=== PATIENT | male | born 1945 | race Caucasian/White ===

== ENCOUNTER 2023-04-01 13:54 | Inpatient (IN) ==
--- NOTE | 2023-04-01 14:54 | XRay Report ---
SINGLE VIEW CHEST CLINICAL HISTORY: Atypical chest pain. FINDINGS: A PA chest radiograph is obtained. No prior studies are available for comparison at the elpidio e of dictation. The cardiomediastinal silhouette is unremarkable. The lungs and pleural spaces are cl ear. No pneumothorax is seen. The skeletal structures are osteopenic. The bony thorax is grossly inta ct. IMPRESSION: No active disease in the chest. ACT 112: Negative or not required by law. Electronically signed by: Kaushik Blank M.D. 04/01/2023 2:53 PM
[2023-04-01 15:44] LABS: Partial Thromboplastin Time 26.9 Seconds (21.0-31.0); Prothrombin Time 11.4 Seconds (9.0-12.0)
[2023-04-01 15:51] LABS: Albumin Level 4.9 gm/dl (3.4-5.0); Bilirubin,Total 0.9 mg/dl (0.2-1.0); Calcium 10.2 mg/dl (8.6-10.3)
[2023-04-01 15:57] LABS: Albumin Globulin Ratio 1.7 (0.9-2); BUN Creatinine Ratio 16.8 (10-20); Creatinine Clr Calc Pharmacy 51.8 ml/min; Est GFR (African American) 57.7 ml/min; Est GFR (Non-African American) 49.7 ml/min; Globulin 2.9 gm/dl (2.5-4.0); Total Protein 7.8 gm/dl (6.0-8.3)
[2023-04-01 16:14] LABS: Basophils # (auto) 0.05 K/uL (0.00-0.20); Basophils % (auto) 0.4 %; Eosinophils % (auto) 0.7 %; Hematocrit (blood only) 43.4 % (42.0-52.0); Hemoglobin 14.8 g/dl (14.0-18.0); Immature Granulocytes # (auto) 0.06 K/uL (0.01-0.20); Immature Granulocytes % (auto) 0.4 %; Lymphocytes # (auto) 0.63 K/uL (1.20-3.40); Lymphocytes % (auto) 4.5 %; Mean Corpuscular Hemoglobin 31.7 pg (25.0-34.0); Mean Corpuscular Hgb Conc 34.1 g/dL (32.0-36.0); Mean Corpuscular Volume 92.9 fL (80.0-100.0); Monocytes # (auto) 0.79 K/uL (0.11-0.59); Monocytes % (auto) 5.7 %; Neutrophils # (auto) 12.22 K/uL (1.40-6.50); Neutrophils % (auto) 88.3 %; Platelet Count 71 K/uL (130-400); Platelet Estimate Decreased (Normal); RDW Coefficient of Variation 12.1 % (11.5-14.5); RDW Standard Deviation 41.4 fL (36.4-46.3); Red Blood Count 4.67 M/uL (4.70-6.10); Troponin I High Sensitivity 11403.5 pg/ml (0-20); White Blood Count 13.85 K/ul (4.8-10.8)
[2023-04-01] MEDS ORDERED: ASPIRIN CHEW 324 MG PO STA (16:31)
--- NOTE | 2023-04-01 16:35 | Emergency Department Note ---
Impression & Plan Non-ST elevation PA (NSTEMI), HTN (hypertension), Thrombocytopenia, Elevated troponin ED Provider Note NAME: JANIE LANDERS AGE: 77 SEX: M : 1945 ARRIVES VIA: Walk-In INFORMANT: Patient ED PROVIDER(S): Nahid Aguila DO CHIEF COMPLAINT: chest pain HPI: Patient is a 77-year-old male who presents ER with past medical history of thrombocytopenia and hypertension for midsternal chest burning following pulling weeds for 2 hours. He notes that the end of this is when the pain started. He went inside and relaxing drove in. On the drive and the pain has completely a bated. He admits to some jaw pain. No arm pain. No shortness of breath. No dysuria urgency or frequency. He is never had this before. He did take Tums following this starting and did not resolve. He notes that the pain was severe in nature. Currently asymptomatic. Denies coughing up blood, vomiting blood, urinating blood or any recent surgery or trauma. No previous brain bleeds. PAST MEDICAL HISTORY:See Below PAST SURGICAL HISTORY:See Below FAMILY HISTORY:See Below SOCIAL HISTORY:See Below HOME MEDICATIONS:See Below ALLERGIES:See Below VITALS:See Below PHYSICAL EXAMINATION: GENERAL: Sitting up in bed, alert, well appearing, well nourished, no distress, non-toxic EYE EXAM: normal conjunctiva. OROPHARYNX: no exudate, no erythema, lips, buccal mucosa, and tongue normal and mucous membranes are moist NECK: supple, no nuchal rigidity, no adenopathy, non-tender LUNGS: Clear to auscultation. Normal chest wall mechanics HEART: no murmurs, S1 normal and S2 normal ABDOMEN: abdomen soft, non-tender, normo-active bowel sounds, no masses, no rebound or guarding. UPPER EXTREMITIES: upper extremities are grossly normal. LOWER EXTREMITIES: No pitting edema. NEURO EXAM: Normal sensorium, cranial nerves II-XII grossly intact, normal speech, no gross weakness of arms, no gross weakness of legs. MEDICAL DECISION MAKING: Patient is a 77-year-old male who presents ER for above-stated complaint. IV was established blood work was obtained. Labs show a leukocytosis of 13,000. N o significant anemia. Platelets were low at 70. BMP along with LFTs bilirubin was unremarkable. Troponin was elevated at 10,000. I was notified by nursing staff initially the patient had a positive troponin [place] Patient was immediately roomed and evaluated. He was pain-free upon arrival to the hospital and on my evaluation. Repeat EKG showed normalization of the subtle changes in the high lateral leads with diffuse Q waves. Discussed with Dr. Tafoya and he recommended heparin and admission and they will cath in the morning. He was placed on low-dose heparin IV due to the thrombocytopenia. Triage Nursing notes reviewed. Limited review of prior medical records performed Vital Signs: reviewed and remarkable for no significant abnormalities Differential diagnosis: Cardiac ischemia, aortic dissection, pulmonary embolism, pneumothorax, pneumonia, pericarditis, myocarditis, esophageal rupture, GERD, cholecystitis, pancreatitis, musculoskeletal, as well as other pathologies. ER treatment provided: See below Diagnostics interpreted by me include EKG and cardiac monitoring as listed below: -Cardiac Monitoring: An order was placed for continuous cardiac monitoring. The monitor shows a rate of 101 with sinus rhythm. -ECG: Sinus rhythm rate of 97 Q waves V1 through V6 Slight ST elevation in the high lateral leads Sinus tachycardia rate of 113 Q waves V1 through V6 Normalization of the STs in the high lateral leads -Laboratory studies:Interpreted by me as stated above in MDM and shown below. Imaging studies: Xrays: As interpreted by me: Portable AP upright 1 view of the chest shows no focal infiltrate CTs show: none Consultation(s): As described in MDM as described above discussed with cardiology who recommended admission and heparin and close monitoring as he is currently pain-free Procedures:none Critical Care: I have personally spent 32 minutes of critical care time in the direct management of this patient. This includes bedside care, interpretation of diagnostic studies, and testing, discussion with consultants, patient, and family members, and other required patient management activities. This 32 minutes is in excess of all separately billable procedures. 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 Beliefs That Will Affect Care: None Current Living Situation: Spouse Other Information That Helps Us Care for You: No Feels Safe at Home: Yes Safety Concerns: Feels Safe At This Time Assistive Devices Comment: reading glasses Allergies Allergies Allergy/AdvReac Type Severity Reaction Status Date / Time No Known Allergies Allergy Verified 04/01/23 16:49 Home Meds Home Medications Medication Instructions Recorded Confirmed metoprolol succinate 25 mg 25 mg PO HS 04/01/23 04/01/23 tablet,extended release 24 hr olmesartan 20 mg tablet 20 mg PO QAM 04/01/23 04/01/23 Results & Data (ED) Vital Signs Vital Signs - 24 hr 04/01/23 14:05 04/01/23 16:34 04/01/23 17:00 Temperature 36.7 C Temperature Source Temporal Artery Scan Pulse Rate 89 105 H 112 H Pulse Rate from SpO2 Sensor Respiratory Rate 18 21 Respiratory Effort / Characteristics Non-Labored Spontaneous Respiratory Depth Normal Respiratory Pattern Regular Blood Pressure 129/83 139/91 Blood Pressure Mean 98 107 Blood Pressure Position Sitting Pulse Oximetry 96 Oxygen Delivery Method Room Air Oxygen Flow Rate Sepsis Recent Fever Within 48 Hours No Sepsis New/Unexplained Change in Mental Status N/A Sepsis Action Taken by Nursing No Action Required 04/01/23 17:30 04/01/23 18:00 Temperature Temperature Source Pulse Rate 100 H 126 H Pulse Rate from SpO2 Sensor 99 H 104 H Respiratory Rate 18 17 Respiratory Effort / Characteristics Respiratory Depth Respiratory Pattern Blood Pressure 130/85 137/89 Blood Pressure Mean 100 105 Blood Pressure Position Pulse Oximetry 97 94 Oxygen Delivery Method Nasal Cannula Nasal Cannula Oxygen Flow Rate 2 2 Sepsis Recent Fever Within 48 Hours Sepsis New/Unexplained Change in Mental Status Sepsis Action Taken by Nursing Laboratory Data 04/01/23 14:38 04/01/23 14:38 Lab Results 04/01/23 04/01/23 04/01/23 Range/Units 14:38 14:38 14:38 WBC 13.85 H (4.8-10.8) K/ul RBC 4.67 L (4.70-6.10) M/uL Hgb 14.8 (14.0-18.0) g/dl Hct 43.4 (42.0-52.0) % MCV 92.9 (80.0-100.0) fL MCH 31.7 (25.0-34.0) pg MCHC 34.1 (32.0-36.0) g/dL RDW Std Deviation 41.4 (36.4-46.3) fL RDW Coeff of Ramu 12.1 (11.5-14.5) % Plt Count 71 L (130-400) K/uL Immature Gran % (Auto) 0.4 % Neut % (Auto) 88.3 % Lymph % (Auto) 4.5 % Wells % (Auto) 5.7 % Eos % (Auto) 0.7 % Baso % (Auto) 0.4 % Neut # (Auto) 12.22 H (1.40-6.50) K/uL Lymph # (Auto) 0.63 L (1.20-3.40) K/uL Wells # (Auto) 0.79 H (0.11-0.59) K/uL Eos # (Auto) 0.10 (0.00-0.50) K/uL Baso # (Auto) 0.05 (0.00-0.20) K/uL Immature Gran # (Auto) 0.06 (0.01-0.20) K/uL Platelet Estimate Decreased L (Normal) PT 11.4 (9.0-12.0) Seconds INR 1.0 (0.9-1.1) APTT 26.9 (21.0-31.0) Seconds PTT Ratio 1.0 Sodium 137 (136-145) mmol/L Potassium 4.0 (3.5-5.1) mmol/L Chloride 104 (98-107) mmol/L Carbon Dioxide 24 (21-32) mmol/L Anion Gap 9 (3-11) BUN 23 (6-23) mg/dl Creatinine 1.37 (0.6-1.4) mg/dl Est Cr Clr Drug Dosing 51.8 ml/min Est GFR ( Amer) 57.7 ml/min Est GFR (Non-Af Amer) 49.7 ml/min BUN/Creatinine Ratio 16.8 (10-20) Glucose 153 H (70-99(Fasting)) mg/dl Calcium 10.2 (8.6-10.3) mg/dl Total Bilirubin 0.9 (0.2-1.0) mg/dl AST 75 H (13-39) U/L ALT 21 (7-52) U/L Alkaline Phosphatase 50 (34-104) U/L Troponin I High Sens 50200.5 H* (0-20) pg/ml Total Protein 7.8 (6.0-8.3) gm/dl Albumin 4.9 (3.4-5.0) gm/dl Globulin 2.9 (2.5-4.0) gm/dl Albumin/Globulin Ratio 1.7 (0.9-2) Administered Medications Heparin Sodium/Dextrose (Heparin Sodium/Dextrose) 25,000 units in 500 mls @ 20 mls/hr IV .Q24H [facility]; Protocol Stop: 05/01/23 17:29 Last Admin: 04/01/23 17:29 Dose: 1,000 units/hr, 20 mls/hr Documented By: KENDAL Co-signed By: OBDULIA Discontinued Medications Aspirin (Aspirin Chew 324 Mg) 324 mg PO NOW STA Stop: 04/01/23 16:32 Last Admin: 04/01/23 17:17 Dose: 324 mg Documented By: KENDAL Heparin Sodium (Porcine) (Heparin Sod (Porcine) 1000 Unit/Ml) 4,000 units IV NOW ONE Stop: 04/01/23 17:16 Last Admin: 04/01/23 17:25 Dose: 4,000 units Documented By: KENDAL Co-signed By: OBDULIA Heparin Sodium (Porcine) (Heparin Sod (Porcine) 1000 Unit/Ml) 4,000 units IV NOW ONE Stop: 04/01/23 17:58 Last Admin: 04/01/23 18:27 Dose: Not Given Documented By: KENDAL Metoprolol Tartrate (Metoprolol Tartrate 1 Mg/Ml Vial) 5 mg IV NOW STA Stop: 04/01/23 17:58 Last Admin: 04/01/23 18:18 Dose: 5 mg Documented By: KENDAL Imaging Data Radiologist's Impression: Chest X-Ray 04/01/23 14:11 SINGLE VIEW CHEST CLINICAL HISTORY: Atypical chest pain. FINDINGS: A PA chest radiograph is obtained. No prior studies are available for comparison at the time of dictation. The cardiomediastinal silhouette is unremarkable. The lungs and pleural spaces are clear. No pneumothorax is seen. The skeletal structures are osteopenic. The bony thorax is grossly intact. IMPRESSION: No active disease in the chest. ACT 112: Negative or not required by law. Electronically signed by: Kaushik Blank M.D. 04/01/2023 2:53 PM Discharge Plan Visit Data Chief Complaint: Cardiac Assessment Stated Complaint: heart burn, along spin pain ED Provider: Nahid Aguila Discharge Problem: Non-ST elevation PA (NSTEMI), HTN (hypertension), Thrombocytopenia, Elevated troponin Patient Disposition: Admitted As Inpatient Discharge Instructions Interventions: ED Discharge Assessment Last Done: 04/01/23 19:32
[2023-04-01] MEDS ORDERED: Heparin IV Adult Wt-Based Low-Dose WITH Bolus Protocol IV STA (16:59)
[2023-04-01] MEDS ORDERED: Heparin IV Adult Wt-Based Low-Dose *NO* Bolus Protocol IV SCH (17:06)
[2023-04-01] MEDS ORDERED: HEPARIN SOD (PORCINE) 1000 UNIT/ML IV ONE ×3 (17:14→17:57)
[2023-04-01] MEDS ORDERED: HEPARIN SODIUM/DEXTROSE 25,000 UNITS/500 ML BAG IV SCH ×2 (17:15→17:30)
[2023-04-01] MEDS ORDERED: METOPROLOL TARTRATE 1 MG/ML VIAL IV STA (17:57)
--- NOTE | 2023-04-01 18:34 | History & Physical Report ---
Date of Service April 01, 2023 Assessment & Plan (1) Chest pain: Plan: Patient presents with chest pain with radiation to the back while performing activity, he is with elevated HScTNI at 11K level. ECG is with no comparison but without definite STEMI - Admit for NSTEMI type I at this time likely - ASA administered - BB IV metoprolol IV x1 now- decrease MVO2/double product - Continue Metoprolol Succinate 25mg PO BID and ARB - PRN Metoprolol 5mg IV for HR >100 and/or SBP >150 - Heparin infusion with bolus started- follow platelet counts and PTT - Cardiology consultation appreciated - ECHO for RWMA in am - NPO after MN - Lipid panel and HGBa1c in am (2) Thrombocytopenia: Plan: Chronic per patient - followed by primary care - will send iron levels -all other cell lines wnl (3) HTN (hypertension): Plan: Continue Olmesartan/equivalent (4) Non-ST elevation PR (NSTEMI): History of Present Illness Chief Complaint: chest pain Primary Care Provider: Jeff Newell 77 YOM with medical history of: HTN, Thrombocytopenia. Presents to the EMD today via his . Patient reports that around 1330 today he had rapid onset of pain/burning in the center of his chest that went up into his throat and back. This occurred while he was outside for a few hours pulling weeds. This was not associated with any dyspnea, diaphoresis, nausea/vomiting, and without radiation to his jaw/shoulders/arms. Patient did take Tylenol and TUMS prior to coming. He reports the worse the pain was 8/10 and resolved by the time he got into the EMD bed. In the EMD the patient had routine labs performed to include HScTNI, CXR, and ECG. There were no other ECGs for comparison. EMD provider reports he discussed case with on-call cardiology. He was given 324 mg ASA and started on heparin infusion. Upon evaluation the patient states he has no pain at this time. He was noted with HR >100 sinus tach, will administer Metoprolol 5mg IV x1. Continue to trend his ECG and HsCTNI- he will be admitted to PCU, continue with heparin infusion as likely need for invasive evaluation. He reports that he did have a EST years ago at [facility]. For his Thrombocytopenia, he reports that he has had this for years and lowest he remebers was in the 40s and highest 90-100. He reports that he may have low iron levels as this was previously checked. He also reports that he had an ultrasound of his liver performed yesterday at [place]. CODE: FULL Allergies Allergy/AdvReac Type Severity Reaction Status Date / Time No Known Allergies Allergy Verified 04/01/23 16:49 Home Medications Medication Instructions Recorded Confirmed Type metoprolol succinate 25 mg 25 mg PO HS 04/01/23 04/01/23 History tablet,extended release 24 hr olmesartan 20 mg tablet 20 mg PO QAM 04/01/23 04/01/23 History Past Med/Surg History Medical History HTN (hypertension) Thrombocytopenia Family History (Updated 04/01/23 @ 18:32 by NIRALI Gutiérrez) Father Stroke Hypertension Dyslipidemia Mother Diabetes Thrombocytopenia Hypertension Dyslipidemia Brother Diabetes Social History Smoking Status: Never smoker Hx Alcohol Use: No Hx Substance Use: No Preferred Language: Khmer Communication Ability: Effective Drawing Checker Required: No Beliefs That Will Affect Care: None Current Living Situation: Spouse Other Information That Helps Us Care for You: No Feels Safe at Home: Yes Safety Concerns: Feels Safe At This Time Assistive Devices Comment: reading glasses Review of Systems Review of Systems: REVIEW OF SYSTEMS: Constitutional: No fever, sweats or chills Eyes: No diplopia, no worsening or blurred vision ENT: normal hearing, no trouble swallowing Respiratory: No cough, sputum, dyspnea at rest or on exertion Cardiovascular: (+) chest pain, tightness, NO palpitations Abdomen: No pain, nausea, vomiting, diarrhea or constipation Musculoskeletal: No joint pain, calf pain, swelling Neurologic: No weakness, numbness/tingling, or balance problems Psychiatric: No anxiety or depression Skin: No rash or itch Physical Exam Physical Exam: PHYSICAL EXAM: General: awake, alert, no apparent distress Head: Normocephalic, atraumatic ENT: PERRL, EOMI, no pharyngeal exudate, mucous membranes moist Neuro: AAO x 3, speech clear and appropriate, strength intact bilaterally 5/5, sensation intact and equal all extremities and dermatomes, no pronator drift Chest: equal rise and fall of the chest, no accessory muscle use, no heaves or thrills, Clear to auscultation, on room air, Cardiac: Regular rate and rhythm, telemetry reviewed- Sinus Tachycardia, skin warm dry, cap refill <3 seconds, peripheral pulses +2 no JVD, no murmur, no edema GI: NABS x 4 quadrants, soft, nontender to palpation, no rebound, guarding or tenderness : Spontaneously voiding, no pain, no CVA tenderness, Psych: Normal mood and affect Skin: no rash or erythema Results & Data Results & Data Vital Signs (Past 12 Hours) Vital Signs Temp Pulse Resp BP Pulse Ox O2 Del Method 04/01/23 16:34 105 H 04/01/23 14:05 36.7 C 89 18 129/83 96 Room Air Laboratory Results Abnormal lab results 04/01/23 04/01/23 Range/Units 14:38 14:38 WBC 13.85 H (4.8-10.8) K/ul RBC 4.67 L (4.70-6.10) M/uL Plt Count 71 L (130-400) K/uL Neut # (Auto) 12.22 H (1.40-6.50) K/uL Lymph # (Auto) 0.63 L (1.20-3.40) K/uL [place]a # (Auto) 0.79 H (0.11-0.59) K/uL Platelet Estimate Decreased L (Normal) Glucose 153 H (70-99(Fasting)) mg/dl AST 75 H (13-39) U/L Troponin I High Sens 26891.5 H* (0-20) pg/ml Diagnostic Findings Chest X-Ray 04/01/23 14:11 SINGLE VIEW CHEST CLINICAL HISTORY: Atypical chest pain. FINDINGS: A PA chest radiograph is obtained. No prior studies are available for comparison at the time of dictation. The cardiomediastinal silhouette is unremarkable. The lungs and pleural spaces are clear. No pneumothorax is seen. The skeletal structures are osteopenic. The bony thorax is grossly intact. IMPRESSION: No active disease in the chest. ACT 112: Negative or not required by law. Electronically signed by: Kaushik Blank M.D. 04/01/2023 2:53 PM Medications Administered Home Medications metoprolol succinate 25 mg tablet,extended release 24 hr 25 mg PO HS 04/01/23 [History Confirmed 04/01/23] olmesartan 20 mg tablet 20 mg PO [facility] 04/01/23 [History Confirmed 04/01/23] Active Medications Heparin Sodium/Dextrose (Heparin Sodium/Dextrose) 25,000 units in 500 mls @ 20 mls/hr IV .Q24H [facility]; Protocol Stop: 05/01/23 17:29 Last Admin: 04/01/23 17:29 Dose: 1,000 units/hr, 20 mls/hr ECG Additional Comments: 01-APR-2023 16:33:18 Sinus tachycardia Left anterior fascicular block Anterolateral infarct (cited on or before 01-APR-2023) Abnormal ECG When compared with ECG of 01-APR-2023 14:31, (unconfirmed) Premature atrial complexes are no longer Present Serial changes of evolving Anterior infarct Present Serial changes of evolving Anterolateral infarct Present 01-APR-2023 14:31:13 Sinus rhythm with Premature atrial complexes Left axis deviation Inferior infarct , age undetermined Anterolateral infarct , age undetermined Abnormal ECG No previous ECGs available Supervising Physician Co-Signing Physician Notes I personally saw and examined the patient. I verified all shah points and agree with NIRALI Gonzalez with the following exceptions and/or additions: 77 year old male presents to the ER with substernal chest pain while pulling weeds at home, lasted for approximately 1 hour. Currently chest pain free since coming to the emergency room. O/E A&Ox3, HS RRR, no murmurs, Chest bibasal crackles, Abdo SNT A/P NSTEMI - ASA 324mg given in the ER and started on low dose heparin with bolus after ER provider discussed with cardiology. Will start on atorvastatin 40mg QPM. Would avoid IV metoprolol as patient is not hypertensive, unknown cardiomyopathy at this time, bibasal crackles on exam therefore just use PO metoprolol. Agree with increasing to BID. Trend troponin. TTE. Consult cardiology. NPO after midnight for cardiac cath tomorrow. PG Care Time/CCT Total # of Minutes Spent Total Time Spent with Patient: Total time spent is greater than 50% in coordination of care (as documented) at patient's floor/unit and/or counseling patient: Coding Level of Care Code 97870 INT INP/OBS CARE 3/75MIN Medical Decision Making High Complexity Diagnoses Chest pain R07.9 Thrombocytopenia D69.6 HTN (hypertension) I10 Non-ST elevation PR (NSTEMI) I21.4
[2023-04-01 19:51] LABS: Troponin I High Sensitivity 47504.8 pg/ml (0-20)
[2023-04-01] MEDS ORDERED: NITROGLYCERIN SL 0.4 MG/TAB TAB SL PRN (20:10)
[2023-04-01] MEDS ORDERED: ACETAMINOPHEN 325 MG TAB PO PRN (20:10)
[2023-04-01] MEDS ORDERED: METOPROLOL TARTRATE 1 MG/ML VIAL IV PRN (20:10)
[2023-04-01 20:51] LABS: Magnesium 1.9 mg/dl (1.7-2.4)
[2023-04-01] MEDS ORDERED: ATORVASTATIN 40 MG TAB PO SCH (21:00)
[2023-04-01] MEDS ORDERED: MAGNESIUM SULFATE / D5W 1 GM/100 ML BAG IV ONE (21:26)
[2023-04-01] MEDS: METOPROLOL SUCC 25MG EXT REL TAB PO SCH (23:00)
[2023-04-02 01:37] LABS: Partial Thromboplastin Ratio 1.8
[2023-04-02 01:40] LABS: Partial Thromboplastin Time 49.8 Seconds (21.0-31.0)
[2023-04-02] MEDS ORDERED: 0.2 MICRON FILTER SET 1 EACH IV ONE (03:56)
[2023-04-02] MEDS ORDERED: AMIODARONE / D5W 360 MG/200 ML BAG IV ONE (03:56)
[2023-04-02 04:07] LABS: BUN Creatinine Ratio 18.4 (10-20); Calcium 9.8 mg/dl (8.6-10.3); Chol HDL Ratio 4.5 (0-5); Creatinine Clr Calc Pharmacy 48.9 ml/min; Est GFR (African American) 64.4 ml/min; Est GFR (Non-African American) 55.6 ml/min; Magnesium 2.1 mg/dl (1.7-2.4)
[2023-04-02 04:22] LABS: Basophils # (auto) 0.03 K/uL (0.00-0.20); Basophils % (auto) 0.2 %; Eosinophils # (auto) 0.05 K/uL (0.00-0.50); Eosinophils % (auto) 0.4 %; Hematocrit (blood only) 44.1 % (42.0-52.0); Hemoglobin 15.4 g/dl (14.0-18.0); Immature Granulocytes # (auto) 0.04 K/uL (0.01-0.20); Immature Granulocytes % (auto) 0.3 %; Lymphocytes # (auto) 0.87 K/uL (1.20-3.40); Lymphocytes % (auto) 6.3 %; Mean Corpuscular Hgb Conc 34.9 g/dL (32.0-36.0); Mean Corpuscular Volume 91.5 fL (80.0-100.0); Monocytes % (auto) 9.5 %; Neutrophils # (auto) 11.44 K/uL (1.40-6.50); Neutrophils % (auto) 83.3 %; Platelet Count 85 K/uL (130-400); Platelet Estimate Decreased (Normal); RDW Coefficient of Variation 12.3 % (11.5-14.5); RDW Standard Deviation 41.3 fL (36.4-46.3); Red Blood Count 4.82 M/uL (4.70-6.10); White Blood Count 13.73 K/ul (4.8-10.8)
[2023-04-02 04:26] LABS: Ferritin 852.5 ng/ml (8-388)
[2023-04-02] MEDS ORDERED: PANTOprazole 40 MG in SYRINGE 0 ML IV ONE (05:15)
[2023-04-02 07:03] LABS: Estimated Average Glucose 120 mg/dl; Hemoglobin A1C 5.8 % (4.5-5.6)
--- NOTE | 2023-04-02 07:14 | Cardiology Consultation ---
Date of Consultation April 02, 2023 Assessment & Plan (1) Non-ST elevation DE (NSTEMI): (2) Cardiomyopathy: (3) Mitral regurgitation: (4) HTN (hypertension): (5) Thrombocytopenia: (6) Dyslipidemia: Plan ASSESSMENT/PLAN: 1. NSTEMI: Currently pain-free but significant wall motion abnormality on echo suggesting LAD CAD. Recommended cardiac catheterization. Risk and benefits were discussed with him in detail. He was made aware that CT surgery is not available at this facility. With mild thrombocytopenia, dual antiplatelet therapy is not contraindicated. Continue home dose beta-lidia which will likely be titrated. Continue ARB for now. High intensity statin therapy recommended. 2. Acute heart failure with reduced EF: Lasix 40 mg IV now. Recommend Boogie catheter while going to the Mixing And Dispensing Supervisor. We will optimize therapy. Low-sodium diet. Strict I's and O's. 3. Cardiomyopathy: Ischemic. Cardiac catheterization as above. Medical therapy as above. If LV EF is less than 35% 40 days from this event, would qualify for ICD for primary prevention. Will likely repeat echo before discharge after revascularization. 4. Hypertension: Normotensive. We will adjust medical therapy for his newly diagnosed cardiac issues. 5. Dyslipidemia: High intensity statin therapy. Goal LDL <70. 6. Thrombocytopenia: Chronic issue. Recommend hematology evaluation at some point. Monitor for bleeding. 7. Antiarrhythmic therapy: No indication for amiodarone at this time. Amiodarone discontinued upon arrival to the [facility] And Dispensing Supervisor. 8. Disposition: Cardiology will continue to follow. Highly complex medical issues. Addendum: Found to have severe LAD CAD and occluded RCA with [id number] collaterals. Underwent PCI x2 by Dr. Navarro. After Lasix and Boogie insertion, had nearly 3 L of urine output according to nursing staff. LVEDP during diagnostic study was 8. Due to hypotension during PCI, he received IV fluid bolus and norepinephrine transiently. Systolic blood pressure normalized and remained stable after discontinuation of norepinephrine. Thank you for allowing me to participate in the care of your patient. Please call for any other questions or concerns. Sincerely, You Alcantar M.D. History of Present Illness Reason for Consultation: NSTEMI Requesting Physician: Chris Pal MD Attending Physician: Chris Pal MD History of Present Illness Mr. Wilder is a very pleasant 77-year-old gentleman with a history significant for thrombocytopenia and hypertension. He was admitted on 04/01/2023 after presenting with angina and elevated troponin with initial high-sensitivity troponin of 11,430. Yesterday at approximately 1 PM while pulling weeds at home, he developed substernal chest burning with mild diaphoresis and mild dyspnea. He took an antacid and some Tylenol. Symptoms persisted for approximately 1 hour before spontaneously resolving. His drove him to the emergency department and by the time he arrived, he was chest pain-free. His initial troponin was elevated. Initial ECG demonstrated sinus rhythm with PACs and minimal ST elevation in the lateral leads and anterolateral Q waves. Overnight, his oxygen saturation dropped and supplemental oxygen was increased to 6 L. He began coughing and had some very minimal blood-tinged sputum but no lucio hemoptysis. After some ice cream at approximately 6 PM, he felt gas pain but different than his presenting angina. He states that his platelet level chronically has been between 40,000 and 90,000. He has not been seen by hematology and states that it has been managed by his PCP. He had a liver scan done yesterday in the [place] area. He has not had any significant bleeding in the past. He denies syncope, near syncope, palpitations, orthopnea, edema, melena, hematochezia, or hematuria. Overnight, he was placed on amiodarone by hospitalist service. Communicated with covering service and they reported conduction changes on telemetry. When reviewing telemetry, there was no sustained arrhythmia. Review of systems: As above. Review of systems otherwise negative/unremarkable. Family history: Father from stroke at 82. Social history: He denies tobacco, alcohol, or drug abuse. He lives at home with his . They have 1 adult son and 2 grandsons. He lives in [place]. Retired from retail sales. His presented to the bedside. Allergies Allergy/AdvReac Type Severity Reaction Status Date / Time No Known Allergies Allergy Verified 04/01/23 16:49 Home Medications Medication Instructions Recorded Confirmed Type metoprolol succinate 25 mg 25 mg PO HS 04/01/23 04/01/23 History tablet,extended release 24 hr olmesartan 20 mg tablet 20 mg PO QAM 04/01/23 04/01/23 History Patient History Medical History HTN (hypertension) Thrombocytopenia Family History (Updated 04/01/23 @ 18:32 by NIRALI Gutiérrez) Father Stroke Hypertension Dyslipidemia Mother Diabetes Thrombocytopenia Hypertension Dyslipidemia Brother Diabetes Social History Smoking Status: Never smoker Hx Alcohol Use: No Hx Substance Use: No Preferred Language: Kyrgyz Communication Ability: Effective Packaging Machine Operator Required: No Beliefs That Will Affect Care: None Current Living Situation: Spouse Other Information That Helps Us Care for You: No Feels Safe at Home: Yes Safety Concerns: Feels Safe At This Time Assistive Devices Comment: reading glasses Physical Exam Physical Exam: Gen.: No acute distress. Alert and oriented. HEENT: Anicteric sclera. Neck: No appreciable JVD. No bruits. Normal carotid upstrokes bilaterally. Cardiac:No ventricular heave. Regular. Normal S1-S2. 1/6 systolic murmur. No rubs, or gallops. Pulmonary: Bibasilar Rales. Abdomen: Soft, nontender, nondistended, with normoactive bowel sounds. No bruits noted. Extremities: 2+ radial pulses bilaterally. 2+ posterior tibialis pulses bila terally. No significant pitting edema or cyanosis. Psychiatric: Affect appears appropriate. Results & Data Vital Signs (Past 12 Hours) Vital Signs Temp Pulse Pulse Pulse Resp BP BP 04/02/23 04:59 04/02/23 02:57 36.5 C 111 H 18 115/75 04/02/23 04:51 101 H 18 04/02/23 04:46 36.9 C 109 H 18 04/01/23 22:00 102 H 04/01/23 20:00 107 H 04/01/23 19:45 04/01/23 22:57 36.8 C 110 H 18 125/75 04/01/23 20:18 37.6 C 109 H 18 04/01/23 19:30 96 H 21 04/01/23 19:30 123/84 04/01/23 19:32 93 H 16 120/82 BP Pulse Ox O2 Del Method O2 Flow Rate 04/02/23 04:59 Nasal Cannula 6 04/02/23 02:57 92 Nasal Cannula 4.0 04/02/23 04:51 95 Nasal Cannula 6 04/02/23 04:46 122/83 94 Nasal Cannula 4 04/01/23 22:00 04/01/23 20:00 04/01/23 19:45 Room Air, Nasal Cannula 2 04/01/23 22:57 96 Nasal Cannula 4.0 04/01/23 20:18 129/83 92 Room Air 04/01/23 19:30 94 04/01/23 19:30 04/01/23 19:32 95 Nasal Cannula 4 Intake & Output 03/31/23 04/01/23 04/02/23 04/03/23 06:59 06:59 06:59 06:59 Intake Total 293 / 293 Output Total 875 / 875 Balance -582 / -582 Weight 195 lb 8.8 oz Laboratory Results Laboratory Results - last 24 hr 04/01/23 04/01/23 04/01/23 14:38 14:38 14:38 WBC 13.85 H RBC 4.67 L Hgb 14.8 Hct 43.4 MCV 92.9 MCH 31.7 MCHC 34.1 RDW Std Deviation 41.4 RDW Coeff of Ramu 12.1 Plt Count 71 L Immature Gran % (Auto) 0.4 Neut % (Auto) 88.3 Lymph % (Auto) 4.5 [place] % (Auto) 5.7 Eos % (Auto) 0.7 Baso % (Auto) 0.4 Neut # (Auto) 12.22 H Lymph # (Auto) 0.63 L [place] # (Auto) 0.79 H Eos # (Auto) 0.10 Baso # (Auto) 0.05 Immature Gran # (Auto) 0.06 Platelet Estimate Decreased L PT 11.4 INR 1.0 APTT 26.9 PTT Ratio 1.0 Sodium 137 Potassium 4.0 Chloride 104 Carbon Dioxide 24 Anion Gap 9 BUN 23 Creatinine 1.37 Est Cr Clr Drug Dosing 51.8 Est GFR ( Amer) 57.7 Est GFR (Non-Af Amer) 49.7 BUN/Creatinine Ratio 16.8 Glucose 153 H Estimat Average Glucose Hemoglobin A1c Calcium 10.2 Magnesium Iron TIBC Unsaturated IBC Transferrin % Sat Ferritin Total Bilirubin 0.9 AST 75 H ALT 21 Alkaline Phosphatase 50 Troponin I High Sens 54009.5 H* Total Protein 7.8 Albumin 4.9 Globulin 2.9 Albumin/Globulin Ratio 1.7 Triglycerides Cholesterol LDL Cholesterol, Calc VLDL Cholesterol, Calc HDL Cholesterol Cholesterol/HDL Ratio Folate SARS-CoV-2, RNA, NAAT Blood Type Antibody Screen 04/01/23 04/01/23 04/02/23 18:46 Unknown 00:29 WBC RBC Hgb Hct MCV MCH MCHC RDW Std Deviation RDW Coeff of Ramu Plt Count Immature Gran % (Auto) Neut % (Auto) Lymph % (Auto) [place] % (Auto) Eos % (Auto) Baso % (Auto) Neut # (Auto) Lymph # (Auto) [place] # (Auto) Eos # (Auto) Baso # (Auto) Immature Gran # (Auto) Platelet Estimate PT INR APTT PTT Ratio Sodium Potassium Chloride Carbon Dioxide Anion Gap BUN Creatinine Est Cr Clr Drug Dosing Est GFR ( Amer) Est GFR (Non-Af Amer) BUN/Creatinine Ratio Glucose Estimat Average Glucose Hemoglobin A1c Calcium Magnesium 1.9 Iron TIBC Unsaturated IBC Transferrin % Sat Ferritin Total Bilirubin AST ALT Alkaline Phosphatase Troponin I High Sens 95986.8 H* D 75487.6 H* Total Protein Albumin Globulin Albumin/Globulin Ratio Triglycerides Cholesterol LDL Cholesterol, Calc VLDL Cholesterol, Calc HDL Cholesterol Cholesterol/HDL Ratio Folate SARS-CoV-2, RNA, NAAT NEGATIVE Blood Type Antibody Screen 04/02/23 04/02/23 04/02/23 00:29 03:34 03:34 WBC RBC Hgb Hct MCV MCH MCHC RDW Std Deviation RDW Coeff of Ramu Plt Count Immature Gran % (Auto) Neut % (Auto) Lymph % (Auto) [place] % (Auto) Eos % (Auto) Baso % (Auto) Neut # (Auto) Lymph # (Auto) [place] # (Auto) Eos # (Auto) Baso # (Auto) Immature Gran # (Auto) Platelet Estimate PT INR APTT 49.8 H* PTT Ratio 1.8 Sodium Potassium Chloride Carbon Dioxide Anion Gap BUN Creatinine Est Cr Clr Drug Dosing Est GFR ( Amer) Est GFR (Non-Af Amer) BUN/Creatinine Ratio Glucose Estimat Average Glucose 120 Hemoglobin A1c 5.8 H Calcium Magnesium Iron TIBC Unsaturated IBC Transferrin % Sat Ferritin Total Bilirubin AST ALT Alkaline Phosphatase Troponin I High Sens Total Protein Albumin Globulin Albumin/Globulin Ratio Triglycerides Cholesterol LDL Cholesterol, Calc VLDL Cholesterol, Calc HDL Cholesterol Cholesterol/HDL Ratio Folate SARS-CoV-2, RNA, NAAT Blood Type A Positive Antibody Screen NEGATIVE 04/02/23 04/02/23 04/02/23 03:34 03:35 03:35 WBC 13.73 H RBC 4.82 Hgb 15.4 Hct 44.1 MCV 91.5 MCH 32.0 MCHC 34.9 RDW Std Deviation 41.3 RDW Coeff of Ramu 12.3 Plt Count 85 L Immature Gran % (Auto) 0.3 Neut % (Auto) 83.3 Lymph % (Auto) 6.3 [place] % (Auto) 9.5 Eos % (Auto) 0.4 Baso % (Auto) 0.2 Neut # (Auto) 11.44 H Lymph # (Auto) 0.87 L [place] # (Auto) 1.30 H Eos # (Auto) 0.05 Baso # (Auto) 0.03 Immature Gran # (Auto) 0.04 Platelet Estimate Decreased L PT INR APTT PTT Ratio Sodium 135 L Potassium 4.0 Chloride 104 Carbon Dioxide 22 Anion Gap 9 BUN 23 Creatinine 1.25 Est Cr Clr Drug Dosing 48.9 Est GFR ( Amer) 64.4 Est GFR (Non-Af Amer) 55.6 BUN/Creatinine Ratio 18.4 Glucose 136 H Estimat Average Glucose Hemoglobin A1c Calcium 9.8 Magnesium 2.1 Iron 51 TIBC 285 Unsaturated IBC 234 Transferrin % Sat 18 L Ferritin 852.5 H Total Bilirubin AST ALT Alkaline Phosphatase Troponin I High Sens Total Protein Albumin Globulin Albumin/Globulin Ratio Triglycerides 70 Cholesterol 183 LDL Cholesterol, Calc 128 VLDL Cholesterol, Calc 14 HDL Cholesterol 41 Cholesterol/HDL Ratio 4.5 Folate > 22.30 SARS-CoV-2, RNA, NAAT Blood Type Antibody Screen 04/02/23 06:05 WBC RBC Hgb Hct MCV MCH MCHC RDW Std Deviation RDW Coeff of Ramu Plt Count Immature Gran % (Auto) Neut % (Auto) Lymph % (Auto) [place] % (Auto) Eos % (Auto) Baso % (Auto) Neut # (Auto) Lymph # (Auto) [place] # (Auto) Eos # (Auto) Baso # (Auto) Immature Gran # (Auto) Platelet Estimate PT INR APTT PTT Ratio Sodium Potassium Chloride Carbon Dioxide Anion Gap BUN Creatinine Est Cr Clr Drug Dosing Est GFR ( Amer) Est GFR (Non-Af Amer) BUN/Creatinine Ratio Glucose Estimat Average Glucose Hemoglobin A1c Calcium Magnesium Iron TIBC Unsaturated IBC Transferrin % Sat Ferritin Total Bilirubin AST ALT Alkaline Phosphatase Troponin I High Sens 71472.4 H* D Total Protein Albumin Globulin Albumin/Globulin Ratio Triglycerides Cholesterol LDL Cholesterol, Calc VLDL Cholesterol, Calc HDL Cholesterol Cholesterol/HDL Ratio Folate SARS-CoV-2, RNA, NAAT Blood Type Antibody Screen Diagnostic Findings Labs reviewed and notable for elevated troponin with peak high-sensitivity troponin of 47,504. Mild thrombocytopenia, normal hemoglobin, stable renal fu nction, normal potassium, elevated LDL for presumed CAD. ECG personally reviewed as noted above in HPI. Repeat ECG 04/01/2023 at 1633: Sinus tachycardia 113 bpm. Anterior infarct. Lateral ST elevation resolved. ECG 04/02/2023 at 2:42 AM: Sinus tachycardia 109 bpm. Anterior infarct. Minimal lateral ST elevation. Chest x-ray 04/01/2023: No active disease in the chest per radiology. Personal review, no infiltrate. Repeat ECG 04/02/2023 at 451: Prominent vasculature suggesting heart failure. Formal review to follow by radiology. Echo preliminary review from 04/02/2023: Probable moderately reduced LV systolic function with large LAD wall motion abnormality. Moderate mitral regurgitation formal review to follow. Medications Administered Current Inpatient Medications Acetaminophen (Acetaminophen 325 Mg Tab) 650 mg PO Q4H PRN PRN Reason: Pain or Fever Stop: 05/01/23 20:09 Aspirin (Aspirin 81 Mg Ectab) 81 mg PO QAM [facility] Stop: 05/02/23 08:59 Atorvastatin Calcium (Atorvastatin 40 Mg Tab) 40 mg PO QPM [facility] Stop: 05/01/23 20:59 Last Admin: 04/01/23 23:00 Dose: 40 mg Heparin Sodium/Dextrose (Heparin Sodium/Dextrose) 25,000 units in 500 mls @ 0 mls/hr IV .Q0M [facility]; Protocol Stop: 05/01/23 17:29 Last Titration: 04/02/23 03:08 Dose: 0 units/hr, 0 mls/hr Amiodarone HCl/Dextrose (Nexterone / D5w) 360 mg in 200 mls @ 33.333 mls/hr IV ONE ONE; Protocol Stop: 04/02/23 09:55 Last Admin: 04/02/23 04:04 Dose: 1 mg/min, 33.3 mls/hr Losartan Potassium (Losartan Potassium 50 Mg Tab) 50 mg PO QAM [facility] Stop: 05/02/23 08:59 Metoprolol Succinate (Metoprolol Succ 25mg Ext Rel Tab) 25 mg PO BID [facility] Stop: 05/01/23 20:59 Last Admin: 04/01/23 23:00 Dose: 25 mg Nitroglycerin (Nitroglycerin Sl 0.4 Mg/Tab Tab) 0.4 mg SL Q5M PRN PRN Reason: Chest Pain Stop: 05/01/23 20:09 PG Care Time/CCT Total # of Minutes Spent Total Time Spent with Patient: Total time spent is greater than 50% in coordination of care (as documented) at patient's floor/unit and/or counseling patient: Coding Level of Care Code 55494 INT INP/OBS CARE 3/75MIN Diagnoses Non-ST elevation DE (NSTEMI) I21.4 Cardiomyopathy I42.9 Mitral regurgitation I34.0 HTN (hypertension) I10 Thrombocytopenia D69.6 Dyslipidemia E78.5
[2023-04-02] MEDS ORDERED: FUROSEMIDE 40 MG/4 ML VIAL IV ONE (07:15)
--- NOTE | 2023-04-02 07:27 | XRay Report ---
XR chest 1V portable CLINICAL HISTORY: Increased O2 requirement COMPARISON STUDY: Chest radiograph April 01, 2023. FINDINGS: There is no pneumothorax. There are trace bilateral pleural effusions. Interstitial thicken ing has developed. Left basilar opacity is noted. Cardiac size is at upper limits of normal. IMPRESSION: Interval development of interstitial pulmonary edema with trace bilateral pleural effusi ons and left basilar opacity. ACT 112: Negative or not required by law. Electronically signed by: Dario Nunez M.D. 04/02/2023 7:26 AM
[2023-04-02] MEDS ORDERED: MIDAZOLAM HCL 1 MG/ML 2ML VIAL ONE (07:29)
[2023-04-02] MEDS ORDERED: NITROGLYCERIN/D5W 100MCG/ML 20ML SYR ONE (07:30)
[2023-04-02] MEDS ORDERED: niCARdipine HCL INJ 2.5 MG/ML 10 ML AMP ONE (07:30)
[2023-04-02] MEDS ORDERED: HEPARIN (PORCINE) 1000 UNIT/ML 10 ML (CATH LAB USE ONLY) ONE (07:30)
[2023-04-02] MEDS ORDERED: fentaNYL citrate PF 100 MCG/2 ML VIAL ONE (07:30)
--- NOTE | 2023-04-02 07:31 | CT Scan Report ---
CT SCAN OF THE CHEST WITHOUT IV CONTRAST CLINICAL HISTORY: Hypoxia. Hemoptysis. COMPARISON STUDY: Chest x-ray dated 04/02/2023. TECHNIQUE: CT scan of the thorax was performed from the thoracic inlet to the upper abdomen. Images are reviewed in the axial, sagittal, and coronal planes. IV contrast was not administered for this ex amination as per the referring clinician. A dose lowering technique was utilized adhering to the [facility] of [place]. CT DOSE: 351.25 mGy.cm FINDINGS: Thyroid: Imaged portions of the thyroid gland are normal in size and attenuation. Thoracic aorta: There is atherosclerotic calcification of the thoracic aorta, which is normal in álvaro alexander and demonstrates standard 3-vessel arch anatomy. Heart: The heart is enlarged noting a small pericardial effusion. The coronary arteries are densely c alcified. Lungs and pleural spaces: Diffuse interlobular septal thickening is seen throughout both lungs with a ssociated air space opacities. The appearance favors congestive failure with pulmonary edema. Minimal secretions are noted in the trachea. There are small pleural effusions. Mediastinum: There are numerous minimally enlarged mediastinal lymph nodes, which measure up to 10 mm short axis. Mechelle: Not well assessed without IV contrast. Axillae: There is no axillary lymphadenopathy. Upper abdomen: There is a small hiatal hernia. Partially visualized upper abdominal viscera is otherw ise grossly unremarkable. Skeletal structures: The skeletal structures are osteopenic. Degenerative change is noted in the shou lders and spine. No lytic or blastic bony lesions are seen. IMPRESSION: 1. Cardiomegaly with evidence of congestive failure. 2. Multifocal bilateral airspace opacities are typical for pulmonary edema. Correlate clinically for evidence of a superimposed infectious/inflammatory pneumonitis. Radiographic follow-up to resolution is recommended. 3. Small pleural effusions. 4. Mildly enlarged mediastinal lymph nodes are nonspecific and likely reactive. 5. Additional findings as above. ACT 112: Negative or not required by law. Electronically signed by: Kaushik Blank M.D. 04/02/2023 7:28 AM
--- NOTE | 2023-04-02 07:40 | Pre Anesthesia Assessment ---
Date of Service April 02, 2023 Pre Sedation Assessment Vital Signs Temp Pulse Pulse Pulse Resp BP BP 04/02/23 07:20 36.7 C 107 H 19 120/85 04/02/23 04:59 04/02/23 02:57 36.5 C 111 H 18 115/75 04/02/23 04:51 101 H 18 04/02/23 04:46 36.9 C 109 H 18 04/01/23 22:00 102 H 04/01/23 20:00 107 H 04/01/23 19:45 04/01/23 22:57 36.8 C 110 H 18 125/75 04/01/23 20:18 37.6 C 109 H 18 04/01/23 19:30 96 H 21 04/01/23 19:30 123/84 04/01/23 19:00 93 H 21 120/82 04/01/23 18:30 89 23 04/01/23 18:30 120/83 04/01/23 19:32 93 H 16 120/82 04/01/23 18:00 126 H 17 137/89 04/01/23 17:30 100 H 18 130/85 04/01/23 17:00 112 H 21 139/91 04/01/23 16:34 105 H 04/01/23 14:05 36.7 C 89 18 129/83 BP Pulse Ox O2 Del Method O2 Flow Rate 04/02/23 07:20 95 Nasal Cannula 6 04/02/23 04:59 Nasal Cannula 6 04/02/23 02:57 92 Nasal Cannula 4.0 04/02/23 04:51 95 Nasal Cannula 6 04/02/23 04:46 122/83 94 Nasal Cannula 4 04/01/23 22:00 04/01/23 20:00 04/01/23 19:45 Room Air, Nasal Cannula 2 04/01/23 22:57 96 Nasal Cannula 4.0 04/01/23 20:18 129/83 92 Room Air 04/01/23 19:30 94 04/01/23 19:30 04/01/23 19:00 95 04/01/23 18:30 94 04/01/23 18:30 04/01/23 19:32 95 Nasal Cannula 4 04/01/23 18:00 94 Nasal Cannula 2 04/01/23 17:30 97 Nasal Cannula 2 04/01/23 17:00 04/01/23 16:34 04/01/23 14:05 96 Room Air Cardiovascular + tachycardic Respiratory + rales Pre-Sedation Airway Assessment Smoking Status: Never smoker Mallampati Class: III ASA: ASA3 NPO Status Date of Last Intake of Fluids: 04/01/23 Time of Last Intake of Fluids: 18:00 Date of Last Intake of Solid Food: 04/01/23 Time of Last Intake of Solid Foods: 18:00 Procedure Planning Contraindications for Sedation: none Current Medications Reviewed: Yes Notes The planned sedation has been discussed with the patient. Informed Consent was obtained. I have identified the patient, determined the appropriateness of sedation and have assessed the patient immediately prior to the procedure. All medicine(s) and interventions are by my order.
[2023-04-02] MEDS ORDERED: NOREPINEPHRINE BITARTRATE 1 MG/ML 4 ML VIAL (CATH LAB USE ONLY) IV ONE (08:37)
--- NOTE | 2023-04-02 08:38 | Cardiac Catheterization ---
[facility] Data: Child Watch Attendant Cardiac Status Clinical evaluation leading to the procedure CAD Presenation: Non STEMI Anginal Classification: CCS IV Heart Failure: NYHA Class: CCS IV Cardiogenic Shock within 24 Hours: No Cardiac Arrest within 24 Hours: No Imaging Studies Past 6 Months: Yes Stress Studies Past 6 Months: No Coronary Anatomy Dominant: Right Diagnostic Physicians Name: Enrique Alcantar MD Status: Elective Closure Device Percutaneous Entry Location: Radial Closure Device: Radial Band Recommendations: Management Recommendatons Cardiac Cath Procedure Full Procedure Date April 02, 2023 Pre-Procedure Diagnosis Pre-Procedure Diagnosis: Non STEMI and Cardiomyopathy AUC Score AUC Score: 9 Post-Procedure Diagnosis Post-Procedure Diagnosis: Severe CAD and Normal Intracardiac Pressures Procedure(s) Performed Procedure(s) Performed: Coronary Angiography and Left Heart Cath Grocery Stock Clerk Enrique Alcantar MD Director Industrial(s) Pat Estimated Blood Loss Estimated Blood Loss: < 20 ml Medication(s) Medication(s): Fentanyl, Heparin, Lidocaine 1%, Nicardipine and Versed Summary of Findings Procedures: 1. Coronary angiography 2. Left heart catheterization 3. Moderate sedation Indication: Mr. Wilder is a pleasant 77-year-old gentleman with NSTEMI and new onset cardiomyopathy with large LAD wall motion abnormality. Coronary angiography: 1. Left main: Distal LM 20%. Calcifications noted within the left main. 2. Left anterior descending: Calcifications noted proximally to mid vessel. Proximal LAD mild diffuse disease with 30 to 40%. Mid LAD 90%. Distal LAD 20 to 30%. NIDIA II flow. LAD wraps around the apex. Large D1 with proximal 70%. 3. Circumflex: Distal circumflex 50 to 60%. High OM1 proximal 60 to 70% with mid 40 to 50%. Small caliber OM 2. Circumflex gives off robust left to right collaterals. 4. Right coronary artery: Dominant vessel. Proximal RCA 100%. PL and PDA fills via left to right collaterals. PL 50 to 70%. Left heart catheterization: 1. Left ventriculography was not performed. 2. No aortic stenosis. Peak to peak gradient across the aortic valve was 0. 3. LVEDP 8 mmHg. Moderate sedation: 1. Sedation start time: 7:49 AM 2. Sedation end time: 8:04 AM Impression: 1. Severe LAD CAD, likely culprit vessel given LAD wall motion abnormality on echo and NIDIA II flow. 2. Occluded RCA with [id number] collaterals, predominantly from the circumflex system. 3. Severe CAD of diagonal with moderate to severe CAD of large OM1. Otherwise nonobstructive CAD. 4. No aortic stenosis. 5. Normal left-sided filling pressure. Plan: 1. Images reviewed with Dr. Navarro of interventional cardiology who plans to attempt PCI of culprit vessel LAD. 2. Optimize medical therapy. 3. Risk factor modification. Hemodynamics Rest Ao:: 87/53 Final Ao: 96/57 LV: 90/0/8 Recommendations Recommendations: Management Recommendatons Specimens Specimens: None Radiation Exposure (mGy) 627 mGy. Fluoro time 1.4 min. Contrast (mls) 50 ml Procedural Complication(s) None Disposition remains in labor relations representative for interventional cardiology I attest to the content of the Intraoperative Record and any orders documented therein. Any exceptions are noted below. [facility] Card Cath Procedure Codes Cardiac Catheterization Procedure 1: Cardiovascular Cath Procedures: 73204 Coronaries and LHC (+/-LV) Moderate Sedation Procedure 1: Sedation/Anesthesia: 58450 Mod Sedation by the same physician;Init15 Min Child Age 5 & Up PG Care Time/CCT Total # of Minutes Spent Total Time Spent with Patient: Total time spent is greater than 50% in coordination of care (as documented) at patient's floor/unit and/or counseling patient:
[2023-04-02] MEDS ORDERED: CLOPIDOGREL BISULFATE 300 MG TAB ONE (08:53)
--- NOTE | 2023-04-02 09:15 | Post Anesthesia Assessment ---
Date of Service April 02, 2023 Post Sedation Assessment Vital Signs Temp Pulse Pulse Pulse Resp BP BP 04/02/23 07:20 98.1 F 107 H 19 120/85 04/02/23 04:59 04/02/23 02:57 97.7 F 111 H 18 115/75 04/02/23 04:51 101 H 18 04/02/23 04:46 98.5 F 109 H 18 04/01/23 22:00 102 H 04/01/23 20:00 107 H 04/01/23 19:45 04/01/23 22:57 98.2 F 110 H 18 125/75 04/01/23 20:18 99.6 F 109 H 18 04/01/23 19:30 96 H 21 04/01/23 19:30 123/84 04/01/23 19:00 93 H 21 120/82 04/01/23 18:30 89 23 04/01/23 18:30 120/83 04/01/23 19:32 93 H 16 120/82 04/01/23 18:00 126 H 17 137/89 04/01/23 17:30 100 H 18 130/85 04/01/23 17:00 112 H 21 139/91 04/01/23 16:34 105 H 04/01/23 14:05 98.1 F 89 18 129/83 BP Pulse Ox O2 Del Method O2 Flow Rate 04/02/23 07:20 95 Nasal Cannula 6 04/02/23 04:59 Nasal Cannula 6 04/02/23 02:57 92 Nasal Cannula 4.0 04/02/23 04:51 95 Nasal Cannula 6 04/02/23 04:46 122/83 94 Nasal Cannula 4 04/01/23 22:00 04/01/23 20:00 04/01/23 19:45 Room Air, Nasal Cannula 2 04/01/23 22:57 96 Nasal Cannula 4.0 04/01/23 20:18 129/83 92 Room Air 04/01/23 19:30 94 04/01/23 19:30 04/01/23 19:00 95 04/01/23 18:30 94 04/01/23 18:30 04/01/23 19:32 95 Nasal Cannula 4 04/01/23 18:00 94 Nasal Cannula 2 04/01/23 17:30 97 Nasal Cannula 2 04/01/23 17:00 04/01/23 16:34 04/01/23 14:05 96 Room Air Recovery Score Activity: Moves 4 extremities Respiration: Deep Breath/Cough Circulation: +/-20% PreAnes Value Consciousness: Fully Awake Oxygen Saturation: O2 needed for >90% Discharge Sedation Level of Care: Fast Track Phase II Post Sedation Plan On clinical assessment, the patient appears to have tolerated the sedation without complications. Patient is recovering as anticipated. Patient will continue to be monitored by nursing and may be discharged when sedation discharge criteria are met per below protocol. Upon Completions of procedure up to 15 minutes continue every 5 minute vital signs and the P.A.R. score; then discharge to a Phase I or Fast Track to Phase II per the following guidelines: * Discharge Patient to appropriate Phase II area if PAR is 8 or greater or retu rn to pre- procedure baseline. The post - procedure orders will be as directed. * If PAR score is less than 8 or not return to pre-procedure baseline then patient will follow Phase I monitoring till PAR is reached for Phase II. The Phase I may be done in procedure room or may call to secure a Phase I area. * If naloxone or flumazenil are used for reversal, hold in Phase I for continued monitoring from when last reversal dose was given for a minimum of 60 minutes or longer pending the nurse and/or physician discretion of patient condition before discharge to Phase II. Please call the Sedation Physician to re-evaluate and complete post-note for discharge to Phase II area. Do NOT discharge from procedure sedation or Phase 1 until post- sedation evaluation note is complete by procedure /sedation MD Sedation Discharge Instructions to be given to the patient at discharge to home.
--- NOTE | 2023-04-02 09:25 | Cardiac Catheterization ---
ACC Data: [place] Cardiac Status Clinical evaluation leading to the procedure CAD Presenation: Non STEMI Anginal Classification: CCS IV Heart Failure: NYHA Class: CCS IV Diagnostic Physicians Name: Franklin Navarro MD Closure Device Recommendations: PCI without planned CABG Cardiac Cath Procedure Full Procedure Date April 02, 2023 Pre-Procedure Diagnosis Pre-Procedure Diagnosis: Non STEMI and Cardiomyopathy AUC Score AUC Score: 9 Post-Procedure Diagnosis Post-Procedure Diagnosis: Severe CAD and Successful PCI Procedure(s) Performed Procedure(s) Performed: Coronary Angiography, Left Heart Cath and Drug Eluting Stent Portainer Operator Franklin Navarro MD Synthetic Department Supervisor(s) Pat Estimated Blood Loss Estimated Blood Loss: < 20 ml Medication(s) Medication(s): Clopidogrel, Fentanyl, Heparin, Nicardipine, Nitroglycerin, Norepinephrine and Versed Summary of Findings Indication: NSTEMI, severe LV dysfunction Access: 6 Fr right radial artery Catheters: EBU 3.5 guide Findings: For full details of patient's coronary angiography please see cath report dictated by Dr. Alcantar. Briefly, patient found to have 95% mid LAD stenosis with NIDIA II distal flow. Decision to proceed with PCI. -- PCI -- Antithrombotic therapy: Heparin, clopidogrel Procedure: Left main cannulated with EBU 3.5 guide Pre-procedure flow NIDIA 2 Incising Machine Operator 50 wire passed across lesion into distal vessel Mid LAD lesion predilated with 2.5 compliant balloon. Post balloon inflation dissection noted Dilated lesion stented with 2.5 x 15 mm Sandpoint drug-eluting stent Stent post-dilated with 2.5 noncompliant balloon IC vasodilators administered for spasm Residual haziness at proximal aspect of stent concerning for residual dissection Second SERGO (2.5 x 8 mm Sandpoint) placed to mid LAD overlapping proximal aspect of initial stent Stent postdilated with stent balloon Post procedure NIDIA 3 flow, stents well expanded with minimal residual stenosis and no apparent cardiac complications. Intraprocedure courseafter IC vasodilators patient hypotensive with systolic blood pressures down to 60s requiring IV fluid bolus and norepinephrine. Post procedure LVEDP 16. Norepinephrine weaned off at completion of procedure. Arterial Closure: TR band Summary: 1. Successful PCI of mid LAD with 2 overlapping drug-eluting stents (2.5 x 8, 2.5 x 15 mm Klever). Recommendations: To PCU for continued monitoring Loaded with clopidogrel 600 mg in [place] Continue dual-antiplatelet therapy for at least 1 year Continue ARB, lidia, MRA as BP allows Consult cardiac Rehab Hemodynamics Rest Ao:: Final Ao: / LV: 16 Recommendations Recommendations: PCI without planned CABG Specimens Specimens: None Radiation Exposure (mGy) 2191 Contrast (mls) 130 Anesthesia Moderate 4450-9452 Procedural Complication(s) None Disposition PCU I attest to the content of the Intraoperative Record and any orders documented therein. Any exceptions are noted below. [facility] Card Cath Procedure Codes Moderate Sedation Procedure 2: Sedation/Anesthesia: 24211 Mod Sedation by the same physician; Ea [id number] Minutes Stenting Procedure 1: Cardiovascular Stent Procedures: 79051 Perc transcatheter placement of intracoronary stent(s), with ang PG Care Time/CCT Total # of Minutes Spent Total Time Spent with Patient: Total time spent is greater than 50% in coordination of care (as documented) at patient's floor/unit and/or counseling patient:
[2023-04-02] MEDS: LOSARTAN POTASSIUM 50 MG TAB PO SCH (10:13)
[2023-04-02] MEDS: ASPIRIN 81 MG ECTAB PO SCH (10:13)
[2023-04-02] MEDS: METOPROLOL SUCC 25MG EXT REL TAB PO SCH ×2 (10:13→20:46)
--- NOTE | 2023-04-02 11:06 | XCELERA ---
[id number] \\[email or web address]_[email or web address]\[id number]___[id number]
[2023-04-02] MEDS ORDERED: SPIRONOLACTONE 12.5 MG TAB PO ONE (16:30)
[2023-04-02] MEDS: ATORVASTATIN 40 MG TAB PO SCH (20:46)
--- NOTE | 2023-04-02 21:22 | Hospitalist Progress Note ---
Date of Service April 02, 2023 Assessment & Plan (1) Non-ST elevation ME (NSTEMI): Plan: peak HS troponin = 47,500 s/p heart cath by Dr Alcantar and Dr Navarro culprit vessel - LAD, 90% occluded - s/p SERGO x 2 following his cath he is chest pain free and hemodynamically stable cont asa loaded with plavix in general labor; then cont plavix 75mg daily cont metoprolol succinate cont ARB cont statin - high intensity - lipitor 80mg daily heparin drip has been d/c (2) Acute systolic CHF (congestive heart failure): Plan: EF 35-40% 2nd ischemic cardiomyopathy with anterior wall motion abnormalities s/p lasix this am with excellent response dyspnea, etc much improved re-eval tomorrow for need for additional diuresis cont BB cont ARB aldactone added by cardiology (3) CAD (coronary artery disease): Plan: s/p heart cath by Dr Alcantar today Coronary angiography: 1. Left main: Distal LM 20%. Calcifications noted within the left main. 2. Left anterior descending: Calcifications noted proximally to mid vessel. Proximal LAD mild diffuse disease with 30 to 40%. Mid LAD 90%. Distal LAD 20 to 30%. NIDIA II flow. LAD wraps around the apex. Large D1 with proximal 70%. 3. Circumflex: Distal circumflex 50 to 60%. High OM1 proximal 60 to 70% with mid 40 to 50%. Small caliber OM 2. Circumflex gives off robust left to right collaterals. 4. Right coronary artery: Dominant vessel. Proximal RCA 100%. PL and PDA fills via left to right collaterals. PL 50 to 70%. Diagnostic cath was followed by interventional cath by Dr Navarro - s/p 2 SERGO to the 90% mid-LAD lesion see #1 above (4) Ischemic cardiomyopathy: Plan: 2nd to severe CAD (5) Dyslipidemia: Plan: LDL 128 HDL 41 started on high-intensity statin - lipitor 80mg daily (6) Mitral regurgitation: Plan: moderate on echo follow (7) Thrombocytopenia: Plan: chronic states since childhood chronic ITP? other? given the use of DAPT consider outpatient heme referral platelet count is adequate at this time (8) HTN (hypertension): Plan: controlled (9) Prediabetes: Plan: a1c 5.8% diet control Plan lengthy discussed held with pt, pt's son, and grandjayla care d/w cardiology appreciate their assistance Admission and Anticipated Discharge Date Admission Date: April 01, 2023 Subjective saw patient late in the day following his heart catheterization he was resting comfortably son, grandson were at bedside he denied any dyspnea - this is MUCH improved in comparison to when he first arrived to [facility] he denied any chest pain able to eat his dinner without difficulty we had lengthy discussion about his echo, heart cath, etc stable tele since the heart cath Review of Systems Review of Systems: cv - no orthopnea, no edema, no recurrent chest pain pulm - no dyspnea, no cough GI - no nausea/emesis Physical Exam Physical Exam: gen - very pleasant, NAD, resting comfortably in bed neck - no JVD mouth - MMM heart - tachy, s1 s2, 1/6 systolic murmur LLSB lungs - minimal rales bases; otherwise CTA b/l abd - soft NT ND BS+ vascular - right radial artery without hematoma ext - no edema, pulses 2+ b/l feet psych - a/o x 3 Results & Data Results & Data Vital Signs (Past 12 Hours) Vital Signs Temp Pulse Pulse Resp BP Pulse Ox O2 Del Method 04/02/23 19:31 36.7 C 94 H 20 107/62 94 Room Air 04/02/23 15:32 36.4 C L 90 20 106/64 94 Room Air 04/02/23 12:23 91 H 20 100/68 94 Room Air 04/02/23 11:25 37.1 C 90 18 92/65 L 94 Nasal Cannula 04/02/23 11:04 88 18 106/78 98 Room Air 04/02/23 09:47 88 18 114/74 95 Nasal Cannula 04/02/23 09:30 89 16 108/79 92 Room Air O2 Flow Rate 04/02/23 19:31 04/02/23 15:32 04/02/23 12:23 04/02/23 11:25 6 04/02/23 11:04 04/02/23 09:47 6 04/02/23 09:30 5 Laboratory Results Laboratory Results - last 24 hr 04/02/23 04/02/23 04/02/23 00:29 00:29 03:34 WBC RBC Hgb Hct MCV MCH MCHC RDW Std Deviation RDW Coeff of Ramu Plt Count Immature Gran % (Auto) Neut % (Auto) Lymph % (Auto) Barber % (Auto) Eos % (Auto) Baso % (Auto) Neut # (Auto) Lymph # (Auto) Barber # (Auto) Eos # (Auto) Baso # (Auto) Immature Gran # (Auto) Platelet Estimate APTT 49.8 H* PTT Ratio 1.8 Activ Coag Time Kaolin Sodium Potassium Chloride Carbon Dioxide Anion Gap BUN Creatinine Est Cr Clr Drug Dosing Est GFR ( Amer) Est GFR (Non-Af Amer) BUN/Creatinine Ratio Glucose Estimat Average Glucose 120 Hemoglobin A1c 5.8 H Calcium Magnesium Iron TIBC Unsaturated IBC Transferrin % Sat Ferritin Troponin I High Sens 44020.6 H* Triglycerides Cholesterol LDL Cholesterol, Calc VLDL Cholesterol, Calc HDL Cholesterol Cholesterol/HDL Ratio Folate Blood Type Antibody Screen 04/02/23 04/02/23 04/02/23 03:34 03:34 03:35 WBC 13.73 H RBC 4.82 Hgb 15.4 Hct 44.1 MCV 91.5 MCH 32.0 MCHC 34.9 RDW Std Deviation 41.3 RDW Coeff of Ramu 12.3 Plt Count 85 L Immature Gran % (Auto) 0.3 Neut % (Auto) 83.3 Lymph % (Auto) 6.3 Barber % (Auto) 9.5 Eos % (Auto) 0.4 Baso % (Auto) 0.2 Neut # (Auto) 11.44 H Lymph # (Auto) 0.87 L Barber # (Auto) 1.30 H Eos # (Auto) 0.05 Baso # (Auto) 0.03 Immature Gran # (Auto) 0.04 Platelet Estimate Decreased L APTT PTT Ratio Activ Coag Time Kaolin Sodium 135 L Potassium 4.0 Chloride 104 Carbon Dioxide 22 Anion Gap 9 BUN 23 Creatinine 1.25 Est Cr Clr Drug Dosing 48.9 Est GFR ( Amer) 64.4 Est GFR (Non-Af Amer) 55.6 BUN/Creatinine Ratio 18.4 Glucose 136 H Estimat Average Glucose Hemoglobin A1c Calcium 9.8 Magnesium 2.1 Iron 51 TIBC 285 Unsaturated IBC 234 Transferrin % Sat 18 L Ferritin 852.5 H Troponin I High Sens Triglycerides 70 Cholesterol 183 LDL Cholesterol, Calc 128 VLDL Cholesterol, Calc 14 HDL Cholesterol 41 Cholesterol/HDL Ratio 4.5 Folate Blood Type A Positive Antibody Screen NEGATIVE 04/02/23 04/02/2304/02/23 03:35 06:05 08:23 WBC RBC Hgb Hct MCV MCH MCHC RDW Std Deviation RDW Coeff of Ramu Plt Count Immature Gran % (Auto) Neut % (Auto) Lymph % (Auto) Barber % (Auto) Eos % (Auto) Baso % (Auto) Neut # (Auto) Lymph # (Auto) Barber # (Auto) Eos # (Auto) Baso # (Auto) Immature Gran # (Auto) Platelet Estimate APTT PTT Ratio Activ Coag Time Kaolin 335 H Sodium Potassium Chloride Carbon Dioxide Anion Gap BUN Creatinine Est Cr Clr Drug Dosing Est GFR ( Amer) Est GFR (Non-Af Amer) BUN/Creatinine Ratio Glucose Estimat Average Glucose Hemoglobin A1c Calcium Magnesium Iron TIBC Unsaturated IBC Transferrin % Sat Ferritin Troponin I High Sens 10985.4 H* D Triglycerides Cholesterol LDL Cholesterol, Calc VLDL Cholesterol, Calc HDL Cholesterol Cholesterol/HDL Ratio Folate > 22.30 Blood Type Antibody Screen 04/02/23 12:48 WBC RBC Hgb Hct MCV MCH MCHC RDW Std Deviation RDW Coeff of Ramu Plt Count Immature Gran % (Auto) Neut % (Auto) Lymph % (Auto) Barber % (Auto) Eos % (Auto) Baso % (Auto) Neut # (Auto) Lymph # (Auto) Barber # (Auto) Eos # (Auto) Baso # (Auto) Immature Gran # (Auto) Platelet Estimate APTT PTT Ratio Activ Coag Time Kaolin Sodium Potassium Chloride Carbon Dioxide Anion Gap BUN Creatinine Est Cr Clr Drug Dosing Est GFR ( Amer) Est GFR (Non-Af Amer) BUN/Creatinine Ratio Glucose Estimat Average Glucose Hemoglobin A1c Calcium Magnesium Iron TIBC Unsaturated IBC Transferrin % Sat Ferritin Troponin I High Sens 75212.6 H* Triglycerides Cholesterol LDL Cholesterol, Calc VLDL Cholesterol, Calc HDL Cholesterol Cholesterol/HDL Ratio Folate Blood Type Antibody Screen PG Care Time/CCT Total # of Minutes Spent Total Time Spent with Patient: Total time spent is greater than 50% in coordination of care (as documented) at patient's floor/unit and/or counseling patient: Coding Level of Care Code 41385 SUB INP/OBS CARE 2/35MIN Diagnoses Non-ST elevation ME (NSTEMI) I21.4 Acute systolic CHF (congestive heart failure) I50.21 CAD (coronary artery disease) I25.10 Ischemic cardiomyopathy I25.5 Dyslipidemia E78.5 Mitral regurgitation I34.0 Thrombocytopenia D69.6 HTN (hypertension) I10 Prediabetes R73.03
[2023-04-03 06:37] LABS: BUN Creatinine Ratio 20.8 (10-20); Creatinine Clr Calc Pharmacy 54.6 ml/min; Est GFR (African American) 61.4 ml/min; Hematocrit (blood only) 37.3 % (42.0-52.0); Hemoglobin 13.1 g/dl (14.0-18.0); Magnesium 1.7 mg/dl (1.7-2.4); Mean Corpuscular Hemoglobin 31.8 pg (25.0-34.0); Mean Corpuscular Hgb Conc 35.1 g/dL (32.0-36.0); Mean Corpuscular Volume 90.5 fL (80.0-100.0); Platelet Count 71 K/uL (130-400); Potassium 3.7 mmol/L (3.5-5.1); RDW Coefficient of Variation 12.4 % (11.5-14.5); RDW Standard Deviation 41.1 fL (36.4-46.3); Red Blood Count 4.12 M/uL (4.70-6.10); White Blood Count 11.31 K/ul (4.8-10.8)
[2023-04-03 06:51] LABS: Basophils # (auto) 0.02 K/uL (0.00-0.20); Basophils % (auto) 0.2 %; Eosinophils # (auto) 0.04 K/uL (0.00-0.50); Eosinophils % (auto) 0.4 %; Immature Granulocytes # (auto) 0.03 K/uL (0.01-0.20); Immature Granulocytes % (auto) 0.3 %; Lymphocytes # (auto) 1.16 K/uL (1.20-3.40); Lymphocytes % (auto) 10.3 %; Monocytes # (auto) 1.46 K/uL (0.11-0.59); Monocytes % (auto) 12.9 %; Neutrophils % (auto) 75.9 %
[2023-04-03] MEDS: CLOPIDOGREL BISULFATE 75 MG TAB PO SCH (07:59)
[2023-04-03] MEDS: METOPROLOL SUCC 25MG EXT REL TAB PO SCH ×2 (07:59→19:48)
[2023-04-03] MEDS: LOSARTAN POTASSIUM 50 MG TAB PO SCH (07:59)
[2023-04-03] MEDS: ASPIRIN 81 MG ECTAB PO SCH (08:00)
[2023-04-03] MEDS ORDERED: SPIRONOLACTONE 25 MG TAB PO SCH (09:00)
--- NOTE | 2023-04-03 13:01 | XCELERA ---
[id number] \\[email or web address]\[email or web address]_[email or web address]\[id number]
[2023-04-03 13:42] LABS: Appearance Urine Clear (Clear); Bacteria Urine Automated Negative (Negative); Bilirubin Urine Negative (Negative); Blood Urine 3+ (Negative); Cast Urine Automated 0 /lpf (0-5); Color Urine Orange; Epithelial Cell Urine Auto 0-5 /lpf (0-5); Glucose Urine UA Negative (Negative); Ketones Urine Negative (Negative); Leukocyte Esterase Urine Negative (Negative); Nitrite Urine Negative (Negative); Protein Urine Negative (Negative); RBC Urine Automated >30 /hpf (0-4); Specific Gravity Urine 1.019 (1.000-1.030); Urobilinogen Urine Negative (Negative)
--- NOTE | 2023-04-03 16:22 | Cardiology Progress Note ---
Date of Service April 03, 2023 Assessment & Plan (1) Non-ST elevation MN (NSTEMI): (2) Cardiomyopathy: (3) Mitral regurgitation: (4) HTN (hypertension): (5) Thrombocytopenia: (6) Dyslipidemia: Plan ASSESSMENT/PLAN: 1. NSTEMI s/p LAD PCI x 2: No further angina. Continue aspirin 81 mg daily and Plavix 75 mg daily for at least 1 year. Aspirin 81 mg daily should be continued indefinitely. Continue high intensity statin therapy. Continue beta-lidia. Cardiac rehab recommended and he is agreeable. This will be arranged in the outpatient setting. 2. Acute heart failure with mid range EF: He appears euvolemic. Likely ischemic in origin. Had intravenous Lasix on 04/02/2023. Start Entresto in place of losartan. Continue metoprolol succinate. Continue spironolactone. Can consider SGLT2 inhibitor. He may remain not require outpatient Lasix. For now, would anticipate Lasix 20 mg once daily as needed for edema, shortness of breath, or weight gain. Low-sodium diet. Strict I's and O's while hospitalized. Daily weights. 3. Cardiomyopathy: Ischemic. Medical therapy as above. Does not require ICD for primary prevention. 4. Hypertension: Mostly normotensive with occasional mild asymptomatic hypotension. Medication adjustments as above. 5. Dyslipidemia: High intensity statin therapy. Goal LDL <70. 6. Thrombocytopenia: Chronic issue. Recommend hematology evaluation at some point. Monitor for bleeding. 7. Disposition: Can be discharged home from a cardiology perspective this evening. Please call with any other questions or concerns. Patient care communicated with Dr. Hewitt of the primary hospitalist service. Admission and Anticipated Discharge Date Admission Date: April 01, 2023 Subjective He feels quite well today. He denies chest pain, shortness of breath, syncope, near syncope, palpitations, or edema. He was able to lay completely flat without orthopnea. Biggest issue today was he had difficulty urinating and had the Boogie catheter be placed. There was a small amount of hematuria that has since cleared with the catheter in place. His was present at the bedside. Physical Exam Physical Exam: Gen.: No acute distress. Alert. HEENT: Anicteric sclera. Neck: No appreciable JVD. No hepatojugular reflux. Cardiac: No ventricular heave. Regular. Normal S1-S2. No audible murmur. 1/6 systolic murmur. No rubs or gallops. Pulmonary: Clear to auscultation bilaterally. Abdomen: Soft, nontender, nondistended, with normoactive bowel sounds. No bruits noted. Extremities: 2+ radial pulses bilaterally. Right radial cath site is clean, dry, and intact without erythema or discharge. 2+ posterior tibialis pulses bilaterally. No edema or cyanosis. Psychiatric: Affect appears appropriate. Results & Data Vital Signs (Past 12 Hours) Vital Signs Temp Pulse Resp BP BP Pulse Ox O2 Del Method 04/03/23 11:11 36.7 C 83 22 97/69 L 96 Room Air 04/03/23 07:36 36.7 C 88 20 101/62 90 Room Air 04/03/23 04:24 37.1 C 84 20 95/62 L 93 Room Air Intake & Output 04/01/23 04/02/23 04/03/23 04/04/23 06:59 06:59 06:59 06:59 Intake Total 293 / 293 747 / 747 480 / 480 Output Total 875 / 875 2600 / 2600 Balance -582 / -582 -1853 / -1853 480 / 480 Weight 195 lb 8.8 oz 194 lb 0.108 oz Laboratory Results Laboratory Results - last 24 hr 04/03/23 04/03/23 04/03/23 05:30 05:30 Unknown WBC 11.31 H RBC 4.12 L Hgb 13.1 L Hct 37.3 L MCV 90.5 MCH 31.8 MCHC 35.1 RDW Std Deviation 41.1 RDW Coeff of Ramu 12.4 Plt Count 71 L Immature Gran % (Auto) 0.3 Neut % (Auto) 75.9 Lymph % (Auto) 10.3 Coffey % (Auto) 12.9 Eos % (Auto) 0.4 Baso % (Auto) 0.2 Neut # (Auto) 8.60 H Lymph # (Auto) 1.16 L Coffey # (Auto) 1.46 H Eos # (Auto) 0.04 Baso # (Auto) 0.02 Immature Gran # (Auto) 0.03 Sodium 133 L Potassium 3.7 Chloride 99 Carbon Dioxide 26 Anion Gap 8 BUN 27 H Creatinine 1.30 Est Cr Clr Drug Dosing 54.6 Est GFR ( Amer) 61.4 Est GFR (Non-Af Amer) 53.0 BUN/Creatinine Ratio 20.8 H Glucose 110 H Calcium 9.0 Magnesium 1.7 Urine Color [place] Urine Appearance Clear Urine pH 6.0 Ur Specific [place] 1.019 Urine Protein Negative Urine Glucose (UA) Negative Urine Ketones Negative Urine Blood 3+ H Urine Nitrite Negative Urine Bilirubin Negative Urine Urobilinogen Negative Ur Leukocyte Esterase Negative Urine WBC (Auto) 1-5 Urine RBC (Auto) >30 H U Hyaline Cast (Auto) 0 U Epithel Cells (Auto) 0-5 Urine Bacteria (Auto) Negative Diagnostic Findings Limited echo 04/03/2023: EF 40 to 45%. LAD wall motion abnormalities similar to 04/02/2023 study. Moderate MR on limited evaluation. LV systolic function may have slightly improved. Labs reviewed and notable for mild hyponatremia, stable renal function, normal potassium, stable thrombocytopenia. Telemetry personally reviewed: Sinus rhythm. No arrhythmia. ECG personally reviewed 04/03/2023: Sinus rhythm 87 bpm. Anterior infarct. Inferior infarct. Medications Administered Current Inpatient Medications Acetaminophen (Acetaminophen 325 Mg Tab) 650 mg PO Q4H PRN PRN Reason: Pain or Fever Stop: 05/01/23 20:09 Aspirin (Aspirin 81 Mg Ectab) [facility] [place] Stop: 05/02/23 08:59 Last Admin: 04/03/23 08:00 Dose: 81 mg Atorvastatin Calcium (Atorvastatin 40 Mg Tab) 80 mg PO QPM [facility] Stop: 05/02/23 20:59 Last Admin: 04/02/23 20:46 Dose: 80 mg Clopidogrel Bisulfate (Clopidogrel Bisulfate 75 Mg Tab) [facility] [place] Stop: 05/03/23 08:59 Last Admin: 04/03/23 07:59 Dose: 75 mg Heparin Sodium/Dextrose (Heparin Sodium/Dextrose) 25,000 units in 500 mls @ 0 mls/hr IV .Q0M [facility]; Protocol Stop: 05/01/23 17:29 Last Titration: 04/02/23 10:34 Dose: Infused Losartan Potassium (Losartan Potassium 50 Mg Tab) 50 mg PO QAM [facility] Stop: 05/02/23 08:59 Last Admin: 04/03/23 07:59 Dose: 50 mg Metoprolol Succinate (Metoprolol Succ 25mg Ext Rel Tab) 25 mg PO BID [facility] Stop: 05/01/23 20:59 Last Admin: 04/03/23 07:59 Dose: 25 mg Nitroglycerin (Nitroglycerin Sl 0.4 Mg/Tab Tab) 0.4 mg SL Q5M PRN PRN Reason: Chest Pain Stop: 05/01/23 20:09 Spironolactone (Spironolactone 25 Mg Tab) 25 mg PO QAM [facility] Stop: 05/03/23 08:59 Last Admin: 04/03/23 07:59 Dose: 25 mg PG Care Time/CCT Total # of Minutes Spent Total Time Spent with Patient: Total time spent is greater than 50% in coordination of care (as documented) at patient's floor/unit and/or counseling patient: Coding Level of Care Code 29461 SUB INP/OBS CARE 2/35MIN Diagnoses Non-ST elevation MN (NSTEMI) I21.4 Cardiomyopathy I42.9 Mitral regurgitation I34.0 HTN (hypertension) I10 Thrombocytopenia D69.6 Dyslipidemia E78.5
[2023-04-03] MEDS: ATORVASTATIN 40 MG TAB PO SCH (19:49)
--- NOTE | 2023-04-03 20:54 | Hospitalist Progress Note ---
Date of Service April 03, 2023 Assessment & Plan (1) Non-ST elevation [place] (NSTEMI): Plan: peak HS troponin = 47,500 s/p heart cath by Dr Alcantar and Dr Navarro culprit vessel - LAD, 90% occluded - s/p SERGO x 2 following his cath he has been chest pain free and hemodynamically stable cont asa cont plavix 75mg daily cont metoprolol succinate BID cont aldactone cont lipitor 80mg daily hold ARB since we will be starting Entresto nitro SL prn at d/c as well (2) Acute systolic CHF (congestive heart failure): Plan: EF 35-40% on echo #1 repeat echo today - EF 40-45% 2nd ischemic cardiomyopathy with anterior wall motion abnormalities s/p lasix with excellent response - appears euvolemic today cont BB hold ARB - Entresto to be added soon cont aldactone (3) CAD (coronary artery disease): Plan: s/p heart cath by Dr Alcantar 04/02 - Coronary angiography: 1. Left main: Distal LM 20%. Calcifications noted within the left main. 2. Left anterior descending: Calcifications noted proximally to mid vessel. Proximal LAD mild diffuse disease with 30 to 40%. Mid LAD 90%. Distal LAD 20 to 30%. NIDIA II flow. LAD wraps around the apex. Large D1 with proximal 70%. 3. Circumflex: Distal circumflex 50 to 60%. High OM1 proximal 60 to 70% with mid 40 to 50%. Small caliber OM 2. Circumflex gives off robust left to right collaterals. 4. Right coronary artery: Dominant vessel. Proximal RCA 100%. PL and PDA fills via left to right collaterals. PL 50 to 70%. Diagnostic cath was followed by interventional cath by Dr Navarro - s/p 2 SERGO to the 90% mid-LAD lesion see #1 above (4) Ischemic cardiomyopathy: Plan: 2nd to severe CAD appears euvolemic today cont BB hold losartan given that we will be starting Entresto soon lasix prn started on aldactone - given SBPs remain low will lower aldactone to 12.5mg daily (5) Dyslipidemia: Plan: LDL 128 HDL 41 started on high-intensity statin - lipitor 80mg daily (6) Mitral regurgitation: Plan: moderate on echo follow (7) Thrombocytopenia: Plan: chronic states since childhood chronic ITP? other? given the use of DAPT consider outpatient heme referral platelet count remains adequate at this time folate was wnl check B12 to be complete (8) HTN (hypertension): Plan: controlled with several BPs <100 systolic he ultimately will need entresto thus, hold losartan given we will make that transition soon re-eval am (9) Prediabetes: Plan: a1c 5.8% diet control (10) Hematuria: Plan: hematuria started AFTER his cruz was removed this morning suspect cruz trauma to the urethral tract, perhaps the prostatic urethra unfortunately the hematuria led to severe urinary retention cruz had to be placed back 1000cc+ of UOP was obtained almost immediately was cruz was placed back hematuria has already cleared leave cruz overnight attempt to take out tomorrow u/a with 3+ blood only; otherwise no signs of UTI culture sent to be complete (11) Hyponatremia: Plan: 137 at admission; now 133 2nd to diuresis no further lasix today - looks euvolemic repeat BMP am Plan updated at bedside ambulate today hopefully d/c tomorrow am Admission and Anticipated Discharge Date Admission Date: April 01, 2023 Subjective this am the pt's cruz catheter was removed following removal he had a mild amount of gross hematuria over the next few hours the patient was unable to void bladder scan showed 800cc I asked nursing to place a new cruz following cruz placement he had 1000cc+ of urine output nearly immediately the hematuria resolved pretty quickly when I came to round on him the urine was clear he denied any other complaints eating well tele overnight wnl was at bedside during the visit Review of Systems Review of Systems: gen - no fevers cv - no cp, no orthopnea, no edema pulm - no dyspnea or MONTES GI - no nausea/emesis Physical Exam Physical Exam: gen - pleasant, NAD, resting comfortably in bed neck - no JVD mouth - MMM heart - RRR, s1 s2, 1/6 systolic murmur LLSB lungs - CTA b/l, no rales abd - soft NT ND BS+ vascular - right radial artery without hematoma or aneurysm ext - no edema, pulses 2+ b/l feet psych - a/o x 3 - cruz in place, urine is clear Results & Data Results & Data Vital Signs (Past 12 Hours) Vital Signs Temp Pulse Resp BP Pulse Ox O2 Del Method 04/03/23 19:15 36.9 C 85 20 103/65 92 Room Air 04/03/23 11:11 36.7 C 83 22 97/69 L 96 Room Air Laboratory Results Laboratory Results - last 24 hr 04/03/23 04/03/23 04/03/23 05:30 05:30 Unknown WBC 11.31 H RBC 4.12 L Hgb 13.1 L Hct 37.3 L MCV 90.5 MCH 31.8 MCHC 35.1 RDW Std Deviation 41.1 RDW Coeff of Ramu 12.4 Plt Count 71 L Immature Gran % (Auto) 0.3 Neut % (Auto) 75.9 Lymph % (Auto) 10.3 [place] % (Auto) 12.9 Eos % (Auto) 0.4 Baso % (Auto) 0.2 Neut # (Auto) 8.60 H Lymph # (Auto) 1.16 L [place] # (Auto) 1.46 H Eos # (Auto) 0.04 Baso # (Auto) 0.02 Immature Gran # (Auto) 0.03 Sodium 133 L Potassium 3.7 Chloride 99 Carbon Dioxide 26 Anion Gap 8 BUN 27 H Creatinine 1.30 Est Cr Clr Drug Dosing 54.6 Est GFR ( Amer) 61.4 Est GFR (Non-Af Amer) 53.0 BUN/Creatinine Ratio 20.8 H Glucose 110 H Calcium 9.0 Magnesium 1.7 Urine Color [place] Urine Appearance Clear Urine pH 6.0 Ur Specific [place] 1.019 Urine Protein Negative Urine Glucose (UA) Negative Urine Ketones Negative Urine Blood 3+ H Urine Nitrite Negative Urine Bilirubin Negative Urine Urobilinogen Negative Ur Leukocyte Esterase Negative Urine WBC (Auto) 1-5 Urine RBC (Auto) >30 H U Hyaline Cast (Auto) 0 U Epithel Cells (Auto) 0-5 Urine Bacteria (Auto) Negative PG Care Time/CCT Total # of Minutes Spent Total Time Spent with Patient: Total time spent is greater than 50% in coordination of care (as documented) at patient's floor/unit and/or counseling patient: Coding Level of Care Code 01195 SUB INP/OBS CARE 2/35MIN Diagnoses Non-ST elevation [place] (NSTEMI) I21.4 Acute systolic CHF (congestive heart failure) I50.21 CAD (coronary artery disease) I25.10 Ischemic cardiomyopathy I25.5 Dyslipidemia E78.5 Mitral regurgitation I34.0 Thrombocytopenia D69.6 HTN (hypertension) I10 Prediabetes R73.03 Hematuria R31.9 Hyponatremia E87.1
[2023-04-04 06:16] LABS: BUN Creatinine Ratio 18.7 (10-20); Est GFR (African American) 59.2 ml/min; Est GFR (Non-African American) 51.1 ml/min; Potassium 3.9 mmol/L (3.5-5.1)
[2023-04-04 06:57] LABS: Basophils # (auto) 0.03 K/uL (0.00-0.20); Basophils % (auto) 0.3 %; Eosinophils # (auto) 0.12 K/uL (0.00-0.50); Eosinophils % (auto) 1.2 %; Hematocrit (blood only) 37.2 % (42.0-52.0); Hemoglobin 13.1 g/dl (14.0-18.0); Immature Granulocytes # (auto) 0.05 K/uL (0.01-0.20); Immature Granulocytes % (auto) 0.5 %; Lymphocytes # (auto) 1.01 K/uL (1.20-3.40); Lymphocytes % (auto) 10.5 %; Mean Corpuscular Hemoglobin 32.1 pg (25.0-34.0); Mean Corpuscular Hgb Conc 35.2 g/dL (32.0-36.0); Mean Corpuscular Volume 91.2 fL (80.0-100.0); Monocytes # (auto) 1.42 K/uL (0.11-0.59); Monocytes % (auto) 14.8 %; Neutrophils # (auto) 6.98 K/uL (1.40-6.50); Neutrophils % (auto) 72.7 %; Platelet Count 67 K/uL (130-400); RBC Morphology Unremarkable; RDW Coefficient of Variation 12.3 % (11.5-14.5); Red Blood Count 4.08 M/uL (4.70-6.10); White Blood Count 9.61 K/ul (4.8-10.8)
[2023-04-04] MEDS: METOPROLOL SUCC 25MG EXT REL TAB PO SCH (08:14)
[2023-04-04] MEDS: CLOPIDOGREL BISULFATE 75 MG TAB PO SCH (08:14)
[2023-04-04] MEDS: ASPIRIN 81 MG ECTAB PO SCH (08:15)
[2023-04-04] MEDS ORDERED: SPIRONOLACTONE 12.5 MG TAB PO SCH (09:00)
[2023-04-04] MEDS: VALSARTAN/SACUBITRIL 26/24MG TAB PO SCH ×2 (10:17→20:04)
--- NOTE | 2023-04-04 17:24 | Ultrasound Report ---
US renal/blad retro comp CLINICAL HISTORY: urinary retention; chronic outlet obstruction? TECHNIQUE: Multiple sonographic real-time images of the kidneys and bladder were obtained. COMPARISON: None available at the time of this dictation. FINDINGS: The right kidney measures 11.1 cm in length, and the left kidney measures 11.0 cm in length. The right kidney is normal in size, contour, cortical thickness, and echogenicity. No hydronephrosis is identified. No renal lesion is identified. The left kidney is normal in size, contour, cortical thickness and echogenicity. No hydronephrosis i s identified. No renal lesion is identified. A Boogie catheter is seen in the collapsed bladder. Bladder wall is thickened. IMPRESSION: Bladder wall is thickened compatible with chronic outlet obstruction. No hydronephrosis. ACT 112: Negative or not required by law. Electronically signed by: Jemal Issa M.D. 04/04/2023 5:22 PM
[2023-04-04] MEDS: ATORVASTATIN 40 MG TAB PO SCH (20:04)
--- NOTE | 2023-04-04 20:09 | Hospitalist Progress Note ---
Date of Service April 04, 2023 Assessment & Plan (1) Urinary retention: Plan: SEVERE had urinary retention today as well as on 04/03/23 cruz now back in place and will send home with such slight hematuria once cruz was placed back - should clear urine cx neg for UTI renal u/s with thickened bladder c/w chronic bladder outlet obstruction thus, suspect he was having chronic, mild urinary retention and it became more severe in the midst of his illness and this hospitalization plan to check SNEHA tomorrow am as BPH is the likely cause of suspected chronic retention/acute retention start flomax 0.4mg HS; discussed risk of orthostasis with flomax he will need Urology f/u 7-10 days post-discharge for trial of void, etc (2) Non-ST elevation [place] (NSTEMI): Plan: peak HS troponin = 47,500 s/p heart cath by Dr Alcantar and Dr Navarro culprit vessel - LAD, 90% occluded - s/p SERGO x 2 following his cath he has been chest pain free and hemodynamically stable cont asa cont plavix 75mg daily cont metoprolol succinate but lower to once daily (need room in BP for flomax) stop aldactone - again need room for flomax cont lipitor 80mg daily ARB has been stopped nitro SL prn at d/c as well (3) Acute systolic CHF (congestive heart failure): Plan: EF 35-40% on echo #1 repeat echo - EF 40-45% 2nd ischemic cardiomyopathy with anterior wall motion abnormalities cont metoprolol once daily cont Entresto BID ARB has been d/c d/c aldactone lasix prn weight gain at home (4) CAD (coronary artery disease): Plan: s/p heart cath by Dr Alcantar 04/02 - Coronary angiography: 1. Left main: Distal LM 20%. Calcifications noted within the left main. 2. Left anterior descending: Calcifications noted proximally to mid vessel. Proximal LAD mild diffuse disease with 30 to 40%. Mid LAD 90%. Distal LAD 20 to 30%. NIDIA II flow. LAD wraps around the apex. Large D1 with proximal 70%. 3. Circumflex: Distal circumflex 50 to 60%. High OM1 proximal 60 to 70% with mid 40 to 50%. Small caliber OM 2. Circumflex gives off robust left to right collaterals. 4. Right coronary artery: Dominant vessel. Proximal RCA 100%. PL and PDA fills via left to right collaterals. PL 50 to 70%. Diagnostic cath was followed by interventional cath by Dr Navarro - s/p 2 SERGO to the 90% mid-LAD lesion see #1 above (5) Ischemic cardiomyopathy: Plan: 2nd to severe CAD appears euvolemic again today cont BB once daily cont Entresto BID lasix prn stop aldactone to allow more room in BP for flomax initiation (6) Dyslipidemia: Plan: LDL 128 HDL 41 started on high-intensity statin - lipitor 80mg daily (7) Mitral regurgitation: Plan: moderate on echo follow (8) Thrombocytopenia: Plan: chronic states since childhood chronic ITP? other? given the use of DAPT consider outpatient heme referral platelet count remains adequate at this time folate was wnl B12 low-normal --> start B12 1000mcg daily x 6 months (9) HTN (hypertension): Plan: cont meto succ once daily cont Entresto ARB has been d/c stop aldactone flomax being added for presumed BPH (10) Prediabetes: Plan: a1c 5.8% diet control follow as outpatient (11) Hematuria: Plan: hematuria started AFTER his cruz was removed AM of 04/03/23 likely he had cruz trauma to the urethral tract this cleared rapidly after cruz re-insertion u/a with blood but otherwise negative urine cx negative watch for recurrence he will have urology f/u post-discharge (12) Hyponatremia: Plan: 137 at admission; again 133 today 2nd to diuresis no further lasix today - looks euvolemic repeat BMP am Plan updated at bedside extensively on multiple visits no d/c today follow BPs overnight given the shuffling of meds yesterday/today hopefully d/c tomorrow am care d/w Dr Alcantar extensively Admission and Anticipated Discharge Date Admission Date: April 01, 2023 Subjective tele stable overnight - NSR cruz was removed this am no hematuria several hours after removing the cruz the patient did void but only <100cc about this time I came to see him and I had the staff perform bladder scan this showed >700cc of urine in the bladder he voided again for us and once further he only voided <100cc bladder scan repeated - still 600-700cc noted recommended we place the cruz back this was done and yielded nearly 1000cc of urine within minutes when he had the severe urinary retention he had only a mild urge to urinate he did not have suprapubic pain when the bladder was distended +BM no chest pain no MONTES no orthopnea slight dizziness noted with standing today Review of Systems Review of Systems: gen - no fevers cv - no chest pain, no orthopnea or PND, no LE edema pulm - no dyspnea GI - no abd pain/nausea/emesis Physical Exam Physical Exam: gen - pleasant, NAD, looks well neck - no JVD mouth - MMM heart - RRR, s1 s2, 1/6 systolic murmur LLSB lungs - CTA b/l, no rales abd - soft NT BS+; abdomen distended with palpable bladder in suprapubic region vascular - right radial artery without hematoma or aneurysm ext - no edema, pulses 2+ b/l feet psych - a/o x 3 Results & Data Results & Data Vital Signs (Past 12 Hours) Vital Signs Temp Pulse Pulse Resp BP BP Pulse Ox 04/04/23 19:55 36.4 C L 89 18 121/69 95 04/04/23 17:00 76 04/04/23 15:56 36.5 C 83 18 98/63 L 94 04/04/23 11:41 36.7 C 75 20 97/56 L 96 O2 Del Method 04/04/23 19:55 Room Air 04/04/23 17:00 04/04/23 15:56 Room Air 04/04/23 11:41 Room Air Laboratory Results Laboratory Results - last 24 hr 04/04/23 04/04/23 04/04/23 05:21 05:21 05:21 WBC 9.61 RBC 4.08 L Hgb 13.1 L Hct 37.2 L MCV 91.2 MCH 32.1 MCHC 35.2 RDW Std Deviation 41.0 RDW Coeff of Ramu 12.3 Plt Count 67 L Immature Gran % (Auto) 0.5 Neut % (Auto) 72.7 Lymph % (Auto) 10.5 [place] % (Auto) 14.8 Eos % (Auto) 1.2 Baso % (Auto) 0.3 Neut # (Auto) 6.98 H Lymph # (Auto) 1.01 L [place] # (Auto) 1.42 H Eos # (Auto) 0.12 Baso # (Auto) 0.03 Immature Gran # (Auto) 0.05 RBC Morphology Unremarkable Sodium 133 L Potassium 3.9 Chloride 100 Carbon Dioxide 26 Anion Gap 7 BUN 25 H Creatinine 1.34 Est Cr Clr Drug Dosing 53.0 Est GFR ( Amer) 59.2 Est GFR (Non-Af Amer) 51.1 BUN/Creatinine Ratio 18.7 Glucose 112 H Calcium 9.0 Vitamin B12 291 Diagnostic Findings Renal Ultrasound 04/04/23 14:18 US renal/blad retro comp CLINICAL HISTORY: urinary retention; chronic outlet obstruction? TECHNIQUE: Multiple sonographic real-time images of the kidneys and bladder were obtained. COMPARISON: None available at the time of this dictation. FINDINGS: The right kidney measures 11.1 cm in length, and the left kidney measures 11.0 cm in length. The right kidney is normal in size, contour, cortical thickness, and echogenicity. No hydronephrosis is identified. No renal lesion is identified. The left kidney is normal in size, contour, cortical thickness and echogenicity. No hydronephrosis is identified. No renal lesion is identified. A Cruz catheter is seen in the collapsed bladder. Bladder wall is thickened. IMPRESSION: Bladder wall is thickened compatible with chronic outlet obstruction. No hydronephrosis. ACT 112: Negative or not required by law. Electronically signed by: Jemal Issa M.D. 04/04/2023 5:22 PM PG Care Time/CCT Total # of Minutes Spent Total Time Spent with Patient: Total time spent is greater than 50% in coordination of care (as documented) at patient's floor/unit and/or counseling patient: Coding Level of Care Code 73092 SUB INP/OBS CARE 3/50MIN Diagnoses Urinary retention R33.9 Non-ST elevation [place] (NSTEMI) I21.4 Acute systolic CHF (congestive heart failure) I50.21 CAD (coronary artery disease) I25.10 Ischemic cardiomyopathy I25.5 Dyslipidemia E78.5 Mitral regurgitation I34.0 Thrombocytopenia D69.6 HTN (hypertension) I10 Prediabetes R73.03 Hematuria R31.9 Hyponatremia E87.1
[2023-04-04] MEDS ORDERED: TAMSULOSIN HCL 0.4 MG CAP PO SCH (21:00)
[2023-04-05 07:19] LABS: Platelet Count 58 K/uL (130-400)
[2023-04-05] MEDS: ASPIRIN 81 MG ECTAB PO SCH (08:34)
[2023-04-05] MEDS: CLOPIDOGREL BISULFATE 75 MG TAB PO SCH (08:34)
[2023-04-05 08:48] LABS: BUN Creatinine Ratio 21.1 (10-20); Calcium 8.8 mg/dl (8.6-10.3); Creatinine Clr Calc Pharmacy 57.7 ml/min; Est GFR (African American) 65.7 ml/min; Est GFR (Non-African American) 56.7 ml/min; Potassium 3.7 mmol/L (3.5-5.1)
[2023-04-05] MEDS ORDERED: METOPROLOL SUCC 25MG EXT REL TAB PO SCH (09:00)
[2023-04-05] MEDS ORDERED: CYANOCOBALAMIN (B-12) 500 MCG TABLET PO SCH (09:00)
[2023-04-05] MEDS: VALSARTAN/SACUBITRIL 26/24MG TAB PO SCH (09:17)
--- NOTE | 2023-04-05 12:22 | Discharge Summary ---
Date of Service April 05, 2023 Admission HPI Per Admitting Provider 77 YOM with medical history of: HTN, Thrombocytopenia. Presents to the EMD today via his . Patient reports that around 1330 today he had rapid onset of pain/burning in the center of his chest that went up into his throat and back. This occurred while he was outside for a few hours pulling weeds. This was not associated with any dyspnea, diaphoresis, nausea/vomiting, and without radiation to his jaw/shoulders/arms. Patient did take Tylenol and TUMS prior to coming. He reports the worse the pain was 8/10 and resolved by the time he got into the EMD bed. In the EMD the patient had routine labs performed to include HScTNI, CXR, and ECG. There were no other ECGs for comparison. EMD provider reports he discussed case with on-call cardiology. He was given 324 mg ASA and started on heparin infusion. Upon evaluation the patient states he has no pain at this time. He was noted with HR >100 sinus tach, will administer Metoprolol 5mg IV x1. Continue to trend his ECG and HsCTNI- he will be admitted to PCU, continue with heparin infusion as likely need for invasive evaluation. He reports that he did have a EST years ago at [facility]. For his Thrombocytopenia, he reports that he has had this for years and lowest he remebers was in the 40s and highest 90-100. He reports that he may have low iron levels as this was previously checked. He also reports that he had an ultrasound of his liver performed yesterday at [place]. CODE: FULL Discharge Exam gen - pleasant, NAD, looks well neck - no JVD mouth - MMM heart - RRR, s1 s2, 1/6 systolic murmur LLSB lungs - CTA b/l, no rales abd - soft NT BS+; abdomen distended with palpable bladder in suprapubic region vascular - right radial artery without hematoma or aneurysm ext - no edema, pulses 2+ b/l feet psych - a/o x 3 Discharge Data Allergies Allergy/AdvReac Type Severity Reaction Status Date / Time No Known Allergies Allergy Verified 04/01/23 16:49 Consultations 04/01/23 16:37 ED Decision to Admit Stat 04/01/23 20:10 Consult Cardiology Routine Procedures Performed Operation Date: 04/02/23 07:25 Actual Procedures p Cath, Left with Cors and Vent - Enrique W. Ortiz, MD s Cineradiography w/Routine Exam - Enrique Alcantar MD s Drug Eluting Stent SGl Vessel - Dileep Navarro MD Ordered Studies 04/02/23 05:17 CT chest diagnostic wo con Stat 04/02/23 07:27 CL Cath Imgs for PACS use only Routine 04/04/23 14:18 US Renal Bladder [US renal/blad retro comp] Routine Hospital Course (1) Urinary retention: SEVERE had urinary retention today as well as on 04/03/23 cruz now back in place and will send home with such slight hematuria once cruz was placed back - should clear urine cx neg for UTI renal u/s with thickened bladder c/w chronic bladder outlet obstruction thus, suspect he was having chronic, mild urinary retention and it became more severe in the midst of his illness and this hospitalization plan to check SNEHA tomorrow am as BPH is the likely cause of suspected chronic retention/acute retention start flomax 0.4mg HS; discussed risk of orthostasis with flomax he will need Urology f/u 7-10 days post-discharge for trial of void, etc (2) Non-ST elevation AL (NSTEMI): peak HS troponin = 47,500 s/p heart cath by Dr Alcantar and Dr Navarro culprit vessel - LAD, 90% occluded - s/p SERGO x 2 following his cath he has been chest pain free and hemodynamically stable cont asa cont plavix 75mg daily cont metoprolol succinate but lower to once daily (need room in BP for flomax) stop aldactone - again need room for flomax cont lipitor 80mg daily ARB has been stopped nitro SL prn at d/c as well (3) Acute systolic CHF (congestive heart failure): EF 35-40% on echo #1 repeat echo - EF 40-45% 2nd ischemic cardiomyopathy with anterior wall motion abnormalities cont metoprolol once daily cont Entresto BID ARB has been d/c d/c aldactone lasix prn weight gain at home (4) CAD (coronary artery disease): s/p heart cath by Dr Alcantar 04/02 - Coronary angiography: 1. Left main: Distal LM 20%. Calcifications noted within the left main. 2. Left anterior descending: Calcifications noted proximally to mid vessel. Proximal LAD mild diffuse disease with 30 to 40%. Mid LAD 90%. Distal LAD 20 to 30%. NIDIA II flow. LAD wraps around the apex. Large D1 with proximal 70%. 3. Circumflex: Distal circumflex 50 to 60%. High OM1 proximal 60 to 70% with mid 40 to 50%. Small caliber OM 2. Circumflex gives off robust left to right collaterals. 4. Right coronary artery: Dominant vessel. Proximal RCA 100%. PL and PDA fills via left to right collaterals. PL 50 to 70%. Diagnostic cath was followed by interventional cath by Dr Navarro - s/p 2 SERGO to the 90% mid-LAD lesion see #1 above (5) Ischemic cardiomyopathy: 2nd to severe CAD appears euvolemic again today cont BB once daily cont Entresto BID lasix prn stop aldactone to allow more room in BP for flomax initiation (6) Dyslipidemia: LDL 128 HDL 41 started on high-intensity statin - lipitor 80mg daily (7) Mitral regurgitation: moderate on echo follow (8) Thrombocytopenia: chronic states since childhood chronic ITP? other? given the use of DAPT consider outpatient heme referral platelet count remains adequate at this time folate was wnl B12 low-normal --> start B12 1000mcg daily x 6 months (9) HTN (hypertension): cont meto succ once daily cont Entresto ARB has been d/c stop aldactone flomax being added for presumed BPH (10) Prediabetes: a1c 5.8% diet control follow as outpatient (11) Hematuria: hematuria started AFTER his cruz was removed AM of 04/03/23 likely he had cruz trauma to the urethral tract this cleared rapidly after cruz re-insertion u/a with blood but otherwise negative urine cx negative watch for recurrence he will have urology f/u post-discharge (12) Hyponatremia: 137 at admission; again 133 today 2nd to diuresis no further lasix today - looks euvolemic repeat BMP am Plan updated at bedside extensively on multiple visits no d/c today follow BPs overnight given the shuffling of meds yesterday/today hopefully d/c tomorrow am care d/w Dr Alcantar extensively Discharge Plan Discharge Items Patient Disposition: Home - Self-Care Reason For Visit: CHEST PAIN Discharge Diagnosis: 1. Chest pain due to heart attack 2. Severe Coronary Artery Disease with placement of 2 stents in your LAD (left anterior descending artery of the heart) 3. Acute congestive heart failure - due to #1 and #2 - improved 4. Chronic thrombocytopenia (low platelets) - hematology follow-up needed 5. Severe urinary retention likely due to BPH (benign prostatic hypertrophy/enlarged prostate) - urology follow-up needed 6. Borderline low vitamin B12 level 7. High cholesterol Activity: Per Instructions section Bathing: No limitations Sexual Activity: Wait until after follow-up appointment Exercise/Sports: Wait until after follow-up appointment Driving/Machine Use: Resume 1 day after discharge Non-emergency contact: Primary Care Provider, Specialist and Support Technician Call non-emergency contact if: you have any medication questions, your symptoms worsen and you have a fever Follow-up/Referrals: Enrique Alcantar MD [Physician] - 04/10/23 9:15 am (heart attack follow- up ) Jose Daniel Goncalves MD [Physician] - (You will need to be seen by hematology for your low platelets. We will help set up an appointment for you. ) Jeff Newell [Primary Care Provider] - (1 week - patient will make follow up appointment with PCP) Yordan Hill MD [Physician] - (we will help set up an appointment to see [facility] for urinary catheter management. The follow up appointment will be within 7-10 days. ) Diet: Low Sodium (2gm) Fluids: 1500ml (6 cups) Addtl Attending Provider Instructions: Mr Wilder, You were hospitalized after having suffered a heart attack. You underwent heart catheterization by Clementina Alcantar and Ramon. The heart catheterization showed severe coronary artery disease. Coronary artery disease is plaque build-up in the arteries of the heart. When the plaque becomes severe enough this leads to a heart attack. The culprit blockage was a 90% blockage in your "left anterior descending artery." 2 stents were placed across this blockage to open it up. In the midst of your heart attack you developed acute congestive heart failure. Congestive heart failure will often lead to a build-up of fluid in the lungs making it hard to breath. IV furosemide was given to you and the water build-up in the lungs resolved. Your echocardiogram showed that the heart pumping ability is 40-45%. Most people are 60-65%, with levels down to 50% being considered low-normal. The 40-45% pumping number on your echocardiogram is consistent with congestive heart failure. With time and certain heart medications sometimes the heart muscle can repair & become stronger. Hopefully your 40-45% number will improve over the next 3-[address] Alcantar will follow this over time. Finally, you had severe urinary retention on two occasions requiring the use of a cruz urinary catheter. You are going home with a catheter. The most common cause of urinary retention in men is an enlarged prostate. We have started you on prostate medication to reduce the size of the prostate. Recommendations - 1. Heart medications - * continue your metoprolol succinate 25mg daily as previous; take this EVERY MORNING (you had been taking it at bedtime) * START atorvastatin 80mg once daily for cholesterol; most common side effect is diffuse muscle aches and/or cramps * START anhe-mvh-[id number] aspirin 81mg once daily * START clopidogrel 75mg once daily; this is to keep your heart stents open * nitroglycerin NEEDED for chest pain; keep this bottle with you at all times * if you ever have to take nitroglycerin please seek medical attention right away 2. STOP your olmesartan. 3. If you notice weight gains of more than 2-3 pounds over 1-2 days please START your furosemide water pill with the potassium supplement. If you have to start the furosemide please contact the cardiology office for additional kasandra dance. The furosemide/potassium supplement are as needed for weight gain. 4. TAKE an ppya-bao-szimunj vitamin B12 supplement 1000mcg (1mg) once daily for about 6 months. 5. DO NOT TAKE yqbl-ava-tgkmkdo ibuprofen, motrin, alleve, naprosyn, etc. 6. Tylenol IS OK to take for aches/pains. Tylenol is safe with heart disease and it does not cause any platelet problems. 7. For presumed enlarged prostate - * continue the cruz urinary catheter until you see [facility] * drain the catheter as shown by nursing staff * ok to use leg bag when leaving your home, etc * TAKE tamsulosin (flomax) 0.4mg once daily at bedtime for enlarged prostate and to improve your urinary flow * as mentioned the most common side effect of this medication is dizziness/lightheadedness * if your dizziness/lightheadedness worsens at home please let your family doctor know right away * use caution when you initially stand up, especially after using the toilet/having a bowel movement * if the dizziness is significant please sit back down right away 8. Starting 04/06/23, limit total fluid intake over a 24-hour period to about 1500-1800ml of fluid. 9. Limit total daily salt intake to no more than 2000mg over a 24-hour period. 10. Check your blood pressures at home once or twice daily and show these numbers to Dr Alcantar. 11. Again check your daily weight each morning and write these numbers down. Please show your weights to Dr Alcantar as well. Follow-up - see separate section It was our pleasure to care for you! -Dr Hewitt Addtl Budget Report Clerk Provider Instructions: ACTIVITY RECOMMENDATIONS following your heart catheterization and heart attack: Excess manipulation of the RIGHT wrist should be avoided for the next 24-48 hours. * No lifting over 2 pounds (approximately a 1/2 gallon of milk) with the right arm for 24 hours. * No strenuous activities until you are seen by cardiology. * You may shower at this time. Do not take a tub bath or submerge the puncture site in water for the next 3 days. * Do not operate any motorized equipment (driving a car, etc) for an 24 additional hours. SPECIAL CARE INSTRUCTIONS: The site may be slightly bruised and sore following your procedure. Should any of the following occur, contact the doctor who performed your procedure. 1. Redness/inflammation, swelling, chills, or fever, or colored drainage at procedure site within 3-7 days after your procedure. 2. Coldness, discoloration, ongoing numbness, severe pain, or swelling. Expect mild tingling of hand and tenderness at the puncture site for up to three days. If this persists beyond three days, or other symptoms develop, notify the Dr. who performed your procedure. BLEEDING: If the procedure site on your wrist begins to bleed, do not panic 1. Place 1 or 2 fingers firmly just slightly above the insertion site to stop the bleeding. You may be able to feel your pulse as you hold pressure. 2. Lift your finger after 5 minutes to see if the bleeding has stopped. 3. Once the bleeding has stopped, gently wipe the wrist area clean with a bandage. * If the bleeding from your wrist does not stop after 10 minutes, or if there is a large amount of bleeding or spurting, call 911 (do not drive yourself to the hospital). SKIN IRRITATION: * You may experience some redness and/or swelling in the area where radiation was administered. If any skin irritation occurs, please contact your family physician. Congestive Heart Failure Instructions: Call 911 and go to the Emergency Room if: * You have tightness or pain in your chest that does not go away with rest * You are very short of breath even with rest * You have to take a nitroglycerin tablet Call your doctor if any of the following symptoms or problems start or get worse: * Shortness of breath or difficulty breathing * Wake up at night short of breath * Chest pain * Cough * Swelling of your hands, feet, or legs * More fatigued or tired with your normal activity * Palpitations - sudden fast heart beats WEIGHT * Weigh yourself every morning after using the bathroom. * Use the same scale. * Wear the same amount of clothing. * Write your weight down on your chart. * Call your doctor if you gain more than 2-3 pounds in 1-2 days. This is usually one of the first signs of water/fluid retention from heart problems. MEDICATIONS * Use this discharge instruction sheet for instructions. * Take your medications at the time your doctor ordered. * Do not skip a dose of your medicines. * If you miss a dose of medicine, take as soon as possible, but DO NOT DOUBLE A DOSE. * Read your medicine information when you get home. * Know all of the side effects of your medicine. * Call your doctor's office if you have any side effects. * Be sure all of your doctors know what medicine and herbs you take (including cold, flu, and herbal medicine). * Pain Medicine: If you do not get relief from your pain, please call your doctor for help. Take the following with you to your follow-up doctor appointments: * Weight Chart * Medication List * List of questions Do not drink excessive alcohol, beer or wine. Pending Studies at Discharge: No Stand-Alone Forms: [facility], Smoking Cessation Medications and DC Order Prescriptions: New clopidogrel 75 mg Tablet 75 mg PO QAM Qty: 30 2RF aspirin 81 mg Tablet,Delayed Release (Dr/Ec) 81 mg PO QAM Qty: 90 3RF Rx Instructions: purchase zlbx-vtp-fqdjifm tamsulosin 0.4 mg Capsule 0.4 mg PO HS Qty: 30 2RF nitroglycerin [Nitrostat] 0.4 mg Tablet, Sublingual 0.4 mg sublingual Q5M PRN (Reason: chest pain) Qty: 1 0RF Rx Instructions: max 3 doses in 15 minutes atorvastatin [Lipitor] 80 mg tablet 80 mg PO DAILY Qty: 30 2RF cyanocobalamin (vitamin B-12) 1,000 mcg tablet 1,000 mcg PO DAILY Qty: 90 1RF Rx Instructions: purchase vvdh-bqc-mknqnzd furosemide [Lasix] 20 mg tablet 20 mg PO QAM PRN (Reason: edema/fluid weight gain) Qty: 14 0RF potassium chloride 10 mEq tablet extended release 10 meq PO DAILY PRN (Reason: only when you take furosemide water pill) Qty: 14 0RF Changed metoprolol succinate 25 mg tablet extended release 24 hr 25 mg PO QAM Qty: 30 2RF Rx Instructions: take each morning Discontinued olmesartan 20 mg tablet 20 mg PO QAM Discharge Orders: Discharge Order (Routine); Ordered 04/05/23 Ordered By: Chris Augustine/Other Patient Handouts: Heart Failure: Tracking Your Weight, CAD, ED Cruz Catheter, Care, ED Low-Salt Diet, ED Urinary Retention, Male Admission Data Admit Date/Time: 04/01/23 18:05 Attending Provider: Chris Hewitt Admit Provider: Chris Pal Primary Care Provider: Jeff Newell Other Providers: Chris Pal ; Enrique Alcantar Coding Diagnoses Urinary retention R33.9 Non-ST elevation AL (NSTEMI) I21.4 Acute systolic CHF (congestive heart failure) I50.21 CAD (coronary artery disease) I25.10 Ischemic cardiomyopathy I25.5 Dyslipidemia E78.5 Mitral regurgitation I34.0 Thrombocytopenia D69.6 HTN (hypertension) I10 Prediabetes R73.03 Hematuria R31.9 Hyponatremia E87.1
--- NOTE | 2023-04-06 07:58 | Electrocardiogram Report ---
Test Reason : Blood Pressure : / mmHG Vent. Rate : 097 BPM Atrial Rate : 097 BPM P-R Int : 164 ms QRS Dur : 086 ms QT Int : 354 ms P-R-T Axes : 052 -54 012 degrees QTc Int : 449 ms Sinus rhythm with Premature atrial complexes Left axis deviation Inferior infarct , age undetermined Anterior infarct , age undetermined ST elevation, consider lateral injury pattern Abnormal ECG No previous ECGs available Confirmed by Enrique Alcantar ([id number]) on 04/06/2023 7:58:03 AM Referred By: Confirmed By:Enrique Alcantar
--- NOTE | 2023-04-06 08:37 | Electrocardiogram Report ---
Test Reason : Blood Pressure : / mmHG Vent. Rate : 113 BPM Atrial Rate : 113 BPM P-R Int : 184 ms QRS Dur : 100 ms QT Int : 342 ms P-R-T Axes : 070 -60 064 degrees QTc Int : 469 ms Sinus tachycardia Left anterior fascicular block Anterior infarct (cited on or before 01-APR-2023) Abnormal ECG When compared with ECG of 01-APR-2023 14:31, Premature atrial complexes are no longer Present Confirmed by Enrique Alcantar ([id number]) on 04/06/2023 8:36:31 AM Referred By: REFERRED SELF Confirmed By:Enrique Alcantar
--- NOTE | 2023-04-06 14:10 | Electrocardiogram Report ---
Test Reason : Blood Pressure : / mmHG Vent. Rate : 109 BPM Atrial Rate : 109 BPM P-R Int : 186 ms QRS Dur : 088 ms QT Int : 318 ms P-R-T Axes : 065 -62 006 degrees QTc Int : 428 ms Sinus tachycardia Left axis deviation Inferior infarct , age undetermined Anterior infarct (cited on or before 01-APR-2023) Lateral ST elevation Abnormal ECG When compared with ECG of 01-APR-2023 16:33, ST more elevated in Lateral leads Nonspecific T wave abnormality now evident in Inferior leads Confirmed by Enrique Alcantar ([id number]) on 04/06/2023 2:10:30 PM Referred By: REFERRED SELF Confirmed By:Enrique Alcantar
--- NOTE | 2023-04-06 14:34 | Electrocardiogram Report ---
Test Reason : Blood Pressure : / mmHG Vent. Rate : 089 BPM Atrial Rate : 089 BPM P-R Int : 184 ms QRS Dur : 086 ms QT Int : 384 ms P-R-T Axes : 054 -61 -14 degrees QTc Int : 467 ms Normal sinus rhythm Left axis deviation Inferior infarct (cited on or before 01-APR-2023) Anterior infarct (cited on or before 01-APR-2023) Abnormal ECG When compared with ECG of 02-APR-2023 02:42, ST more elevated in anterior leads Confirmed by Enrique Alcantar ([id number]) on 04/06/2023 2:33:43 PM Referred By: REFERRED SELF Confirmed By:Enrique Alcantar
--- NOTE | 2023-04-06 16:59 | Electrocardiogram Report ---
Test Reason : Blood Pressure : / mmHG Vent. Rate : 087 BPM Atrial Rate : 087 BPM P-R Int : 186 ms QRS Dur : 092 ms QT Int : 390 ms P-R-T Axes : 073 -69 091 degrees QTc Int : 469 ms Normal sinus rhythm Left axis deviation Inferior infarct (cited on or before 01-APR-2023) Anterior infarct (cited on or before 01-APR-2023) T wave abnormality, consider lateral ischemia Abnormal ECG When compared with ECG of 02-APR-2023 09:17, Serial changes of Anterior infarct Confirmed by Enrique Alcantar ([id number]) on 04/06/2023 4:59:03 PM Referred By: REFERRED SELF Confirmed By:Enrique Alcantar
== END 2023-04-05 13:37 | disposition home or self-care (01) | DRG 246 ==
LOC: ED 13:54 → 2E 18:05 → SUATTDRO 18:05 → 2E 19:32

== ENCOUNTER 2024-01-02 19:16 | Inpatient (IN) ==
--- NOTE | 2024-01-02 20:12 | Emergency Department Note ---
Impression & Plan Hematuria ADMIT ED Provider Note HPI: History obtained from patient. The patient is a 78-year-old gentleman who presents the emergency department with urinary retention and hematuria that has been worsening over the past 3 days. Patient had a TURP performed by Dr. Hill of urology on 12/15. Patient states he had his catheter removed about 1 week ago and had been doing well. Patient states over the past 3 days he developed a diminished stream of his urine and did notice some blood tinge to his urine. Patient states today he was unable to urinate and therefore came to the ED to be assessed. On arrival to the ED the patient is in mild distress secondary to suprapubic discomfort. He is otherwise hemodynamically stable. ROS: - Per HPI Differential Diagnosis: Acute cystitis, urinary tract infection, hematuria with obstruction, bladder mass, amongst other potential pathologies. *Outpatient medications and allergy history reviewed. PE: General: Alert HEENT: Normocephalic, trachea midline Eyes: Extraocular eye movement is intact, no scleral erythema Pulmonary: Clear to auscultation bilaterally, no wheezing Cardio: Regular rate and rhythm GI: Abdomen is soft to palpation : Boogie catheter in place, mild suprapubic tenderness to palpation MSK: No evidence of trauma or malformation of the extremities, no edema Skin: No evidence of rash Neuro: Alert, no focal deficits Psychiatric: Cooperative INDEPENDENT INTERPRETATIONS: groundwater monitoring technician: (As interpreted by myself): - An order was placed for continuous cardiac monitoring - Patient was noted to be in sinus rhythm with a rate of 95 Interventions provided in ED: -Boogie catheter placement Medical Decision Making: IV was established and lab work obtained, patient was placed on groundwater monitoring technician. Boogie catheter was placed with approximately 300 cc of bloody drainage. Patient did have significant relief of his discomfort following Boogie catheter placement. Lab work shows no leukocytosis, hemoglobin is slightly reduced at 12.9 but stable, platelet count is slightly above the patient's normal baseline at 86, lab work shows a mild hyponatremia 133, no evidence of acute kidney injury, urinalysis is nitrite positive but leukocyte esterase negative. Will send for culture. Patient's catheter was flushed several times and additional 800 cc of bloody urine was reportedly returned after this per the bedside RN. I did discuss the patient's presentation with his urologist, Dr. Hill, and at this time he recommends if the bleeding continues the patient could be admitted and urology consultation placed. Blood cultures were drawn and the patient was placed on IV ceftriaxone as following another period of observation his catheter required again to be flushed and additional several hundred cc of bloody urine was obtained. Patient and his at the bedside are in agreement for admission. Patient's case was discussed with the on-call hospitalist, Dr. Pressley, the patient was placed for admission in stable condition. Consultants/Discussions held with other healthcare providers: -Urology, Dr. Hill -Hospitalist, Dr. Pressley Disposition discussion held by myself with: -Patient and at bedside Diagnosis: 1. Gross hematuria, postoperative, acute 2. Urinary outlet obstruction, acute 3. Thrombocytopenia, chronic 4. Anemia, acute, mild 5. UTI, acute Disposition: Admission Harpreet Pereira DO Emergency Medicine Past Med/Surg History Problem List (Updated 01/02/24 @ 23:46 by Harpreet Pereira DO) Hematuria (Acute) BPH NOS w ur obs/LUTS Heart failure with improved ejection fraction (HFimpEF) Incomplete emptying of bladder Acute urinary retention Orthostatic hypotension S/P coronary artery stent placement HFrEF (heart failure with reduced ejection fraction) Improved EF per 07/2023 cardio records (EF 55-60% per 07/2023 ECHO) Medical History (Updated 01/02/24 @ 23:46 by Harpreet Pereira DO) Hx of Clostridium difficile infection Aug 2023 > after antibiotics for UTI > now resolved BPH (benign prostatic hyperplasia) Urinary retention CAD (coronary artery disease) LAD PCI x 2 (04/02/23) Prediabetes diet controlled Ischemic cardiomyopathy Farxiga for this per pt not diabetes Dyslipidemia Non-ST elevation ID (NSTEMI) 03/2023 > stents > [facility] Thrombocytopenia chronic for patient > sees hematology HTN (hypertension) Surgical History History of colonoscopy Hx of nasal polypectomy History of heart artery stent 03/2023 > [facility] > 2 stents History of cardiac cath 03/2023 > [facility] > 2 stents Family History Father Stroke Hypertension Dyslipidemia Mother Diabetes Thrombocytopenia Hypertension Dyslipidemia Brother Diabetes Social History Smoking Status: Never smoker Second Hand Exposure: No; Do You Dip or Chew Tobacco: No; Hx Alcohol Use: No Hx Substance Use: No Preferred Language: Senegalese Communication Ability: Effective Rehab Aide Required: No Beliefs That Will Affect Care: None Current Living Situation: Spouse Feels Safe at Home: Yes Assistive Devices: Glasses Allergies Allergies Allergy/AdvReac Type Severity Reaction Status Date / Time No Known Allergies Allergy Verified 12/16/23 09:55 Home Meds Home Medications Medication Instructions Recorded Confirmed dapagliflozin propanediol 10 mg 10 mg PO QAM 11/09/23 12/16/23 tablet (Farxiga) potassium chloride 10 mEq 10 meq PO DAILY PRN only when you 12/16/23 12/16/23 tablet,extended release take furosemide water pill Previous Rx's Medication Instructions Recorded aspirin 81 mg tablet,delayed 81 mg PO QAM #90 tabs 04/05/23 release cyanocobalamin (vitamin B-12) 1,000 mcg PO DAILY #90 tabs 04/05/23 1,000 mcg tablet furosemide 20 mg tablet (Lasix) 20 mg PO QAM PRN edema/fluid 04/05/23 weight gain #14 tabs metoprolol succinate 25 mg 25 mg PO QAM #30 tabs 04/05/23 tablet,extended release 24 hr nitroglycerin 0.4 mg sublingual 0.4 mg sublingual Q5M PRN chest 04/05/23 tablet (Nitrostat) pain #1 btl sacubitril 24 mg-valsartan 26 mg 1 tab PO BID #180 tabs 04/13/23 tablet (Entresto) sulfamethoxazole 800 1 tab PO BID 6 days #12 tabs 12/03/23 mg-trimethoprim 160 mg tablet (Bactrim DS) tamsulosin 0.4 mg capsule 0.4 mg PO HS #90 caps 12/04/23 atorvastatin 80 mg tablet (Lipitor) 80 mg PO QAM #90 tabs 12/07/23 clopidogrel 75 mg tablet 75 mg PO QAM #90 tabs 12/07/23 Results & Data (ED) Vital Signs Vital Signs - 24 hr 01/02/24 19:30 01/02/24 19:47 01/02/24 19:48 Temperature 36.8 C Temperature Source Temporal Artery Scan Pulse Rate 98 H 95 H Pulse Rate [Apical] Respiratory Rate 16 Respiratory Effort / Characteristics Non-Labored Respiratory Depth Normal Respiratory Pattern Regular Blood Pressure 129/75 Blood Pressure [Left Arm] Blood Pressure Mean 93 Blood Pressure Mean [Left Arm] Pulse Oximetry 96 97 Oxygen Delivery Method Room Air Room Air Sepsis Recent Fever Within 48 Hours No Sepsis New/Unexplained Change in Mental Status N/A Sepsis Action Taken by Nursing No Action Required 01/02/24 19:48 Temperature Temperature Source Pulse Rate Pulse Rate [Apical] 97 H Respiratory Rate 24 Respiratory Effort / Characteristics Respiratory Depth Respiratory Pattern Blood Pressure Blood Pressure [Left Arm] 150/94 H Blood Pressure Mean Blood Pressure Mean [Left Arm] 112 Pulse Oximetry 97 Oxygen Delivery Method Sepsis Recent Fever Within 48 Hours Sepsis New/Unexplained Change in Mental Status Sepsis Action Taken by Nursing Laboratory Data 01/02/24 19:37 01/02/24 19:37 Lab Results 01/02/24 01/02/24 Range/Units 19:37 Unknown WBC 10.59 (4.8-10.8) K/ul RBC 4.24 L (4.70-6.10) M/uL Hgb 12.9 L (14.0-18.0) g/dl Hct 39.1 L (42.0-52.0) % MCV 92.2 (80.0-100.0) fL MCH 30.4 (25.0-34.0) pg MCHC 33.0 (32.0-36.0) g/dL RDW Std Deviation 42.3 (36.4-46.3) fL RDW Coeff of Ramu 12.5 (11.5-14.5) % Plt Count 86 L (130-400) K/uL Immature Gran % (Auto) 0.4 % Neut % (Auto) 79.0 % Lymph % (Auto) 10.5 % Lane % (Auto) 7.5 % Eos % (Auto) 2.1 % Baso % (Auto) 0.5 % Neut # (Auto) 8.38 H (1.40-6.50) K/uL Lymph # (Auto) 1.11 L (1.20-3.40) K/uL Lane # (Auto) 0.79 H (0.11-0.59) K/uL Eos # (Auto) 0.22 (0.00-0.50) K/uL Baso # (Auto) 0.05 (0.00-0.20) K/uL Immature Gran # (Auto) 0.04 (0.01-0.20) K/uL PT 11.6 (9.0-12.0) Seconds INR 1.1 (0.9-1.1) APTT 27 (21-31) Seconds PTT Ratio 1.0 Sodium 133 L (136-145) mmol/L Potassium 3.7 (3.5-5.1) mmol/L Chloride 101 (98-107) mmol/L Carbon Dioxide 21 (21-32) mmol/L Anion Gap 11 (3-11) BUN 27 H (6-23) mg/dl Creatinine 1.40 (0.6-1.4) mg/dl Est Cr Clr Drug Dosing 49.9 ml/min Est GFR ( Amer) 55.8 ml/min Est GFR (Non-Af Amer) 48.1 ml/min BUN/Creatinine Ratio 19.3 (10-20) Glucose 116 H (70-99(Fasting)) mg/dl Calcium 9.4 (8.6-10.3) mg/dl Total Bilirubin 1.5 H (0.2-1.0) mg/dl AST 26 (13-39) U/L ALT 18 (7-52) U/L Alkaline Phosphatase 66 (34-104) U/L Total Protein 7.0 (6.0-8.3) gm/dl Albumin 4.6 (3.4-5.0) gm/dl Globulin 2.4 L (2.5-4.0) gm/dl Albumin/Globulin Ratio 1.9 (0.9-2) Urine Color Red Urine Appearance Cloudy A (Clear) Urine pH 7.0 (4.5-7.5) Ur Specific [place] 1.025 (1.000-1.030) Urine Protein 3+ H (Negative) Urine Glucose (UA) 1+ H (Negative) Urine Ketones Trace H (Negative) Urine Blood 3+ H (Negative) Urine Nitrite Positive A (Negative) Urine Bilirubin 2+ H (Negative) Urine Urobilinogen Negative (Negative) Ur Leukocyte Esterase Negative (Negative) Urine RBC >20 H (0-2) /hpf Urine WBC 0-5 (0-5) /hpf Ur Epithelial Cells 0-2 (0-2) /hpf Urine Bacteria None Seen (None Seen) Administered Medications Lactated Ringer's (Lr) 1,000 mls @ 100 mls/hr IV .Q10H STA Stop: 01/03/24 09:02 Last Admin: 01/02/24 23:36 Dose: 100 mls/hr Documented By: CARMEN Discontinued Medications Tamsulosin HCl (Tamsulosin Hcl 0.4 Mg Cap) 0.4 mg PO NOW STA Stop: 01/02/24 23:09 Last Admin: 01/02/24 23:36 Dose: 0.4 mg Documented By: ACRMEN Discharge Plan Visit Data Chief Complaint: Bleeding Stated Complaint: BLEEDING FROM [facility] ED Provider: Harpreet Pereira Discharge Problem: Hematuria Forms Stand Alone Forms: [employer] [facility] [employer] Prescriptions Prescriptions: No Action Entresto 24-26 mg tablet 1 tab PO BID Qty: 180 3RF sulfamethoxazole-trimethoprim [Bactrim DS] 800-160 mg tablet 1 tab PO BID 6 Days Qty: 12 0RF Rx Instructions: hold potassium while taking tamsulosin 0.4 mg capsule 0.4 mg PO HS Qty: 90 3RF atorvastatin [Lipitor] 80 mg tablet 80 mg PO QAM Qty: 90 3RF clopidogrel 75 mg tablet 75 mg PO QAM Qty: 90 3RF Hold Instructions: Resume on 12/18/23. aspirin 81 mg Tablet,Delayed Release (Dr/Ec) 81 mg PO QAM Qty: 90 3RF Rx Instructions: purchase [id number] nitroglycerin [Nitrostat] 0.4 mg Tablet, Sublingual 0.4 mg sublingual Q5M PRN (Reason: chest pain) Qty: 1 0RF Rx Instructions: max 3 doses in 15 minutes cyanocobalamin (vitamin B-12) 1,000 mcg tablet 1,000 mcg PO DAILY Qty: 90 1RF Rx Instructions: purchase [id number] metoprolol succinate 25 mg tablet extended release 24 hr 25 mg PO QAM Qty: 30 2RF Rx Instructions: take each morning furosemide [Lasix] 20 mg tablet 20 mg PO QAM PRN (Reason: edema/fluid weight gain) Qty: 14 0RF dapagliflozin propanediol [Farxiga] 10 mg tablet 10 mg PO QAM potassium chloride 10 mEq tablet extended release 10 meq PO DAILY PRN (Reason: only when you take furosemide water pill) Referrals Referrals: Jeff Newell [Primary Care Provider] - Discharge Problem: Hematuria Qualifiers: Hematuria type: gross Qualified Code(s): R31.0 - Gross hematuria
[2024-01-02 20:20] LABS: Albumin Globulin Ratio 1.9 (0.9-2); Albumin Level 4.6 gm/dl (3.4-5.0); BUN Creatinine Ratio 19.3 (10-20); Bilirubin,Total 1.5 mg/dl (0.2-1.0); Calcium 9.4 mg/dl (8.6-10.3); Creatinine Clr Calc Pharmacy 49.9 ml/min; Est GFR (African American) 55.8 ml/min; Est GFR (Non-African American) 48.1 ml/min; Globulin 2.4 gm/dl (2.5-4.0); Potassium 3.7 mmol/L (3.5-5.1)
[2024-01-02 20:23] LABS: Basophils # (auto) 0.05 K/uL (0.00-0.20); Basophils % (auto) 0.5 %; Eosinophils # (auto) 0.22 K/uL (0.00-0.50); Eosinophils % (auto) 2.1 %; Hematocrit (blood only) 39.1 % (42.0-52.0); Hemoglobin 12.9 g/dl (14.0-18.0); Immature Granulocytes # (auto) 0.04 K/uL (0.01-0.20); Immature Granulocytes % (auto) 0.4 %; Lymphocytes # (auto) 1.11 K/uL (1.20-3.40); Lymphocytes % (auto) 10.5 %; Mean Corpuscular Hemoglobin 30.4 pg (25.0-34.0); Mean Corpuscular Volume 92.2 fL (80.0-100.0); Monocytes # (auto) 0.79 K/uL (0.11-0.59); Monocytes % (auto) 7.5 %; Neutrophils # (auto) 8.38 K/uL (1.40-6.50); Platelet Count 86 K/uL (130-400); RDW Coefficient of Variation 12.5 % (11.5-14.5); RDW Standard Deviation 42.3 fL (36.4-46.3); Red Blood Count 4.24 M/uL (4.70-6.10); White Blood Count 10.59 K/ul (4.8-10.8)
[2024-01-02 20:40] LABS: INR 1.1 (0.9-1.1); Partial Thromboplastin Time 27 Seconds (21-31); Prothrombin Time 11.6 Seconds (9.0-12.0)
[2024-01-02 20:58] LABS: Appearance Urine Cloudy (Clear); Bilirubin Urine 2+ (Negative); Blood Urine 3+ (Negative); Color Urine Red; Glucose Urine UA 1+ (Negative); Ketones Urine Trace (Negative); Leukocyte Esterase Urine Negative (Negative); Nitrite Urine Positive (Negative); Protein Urine 3+ (Negative); Specific Gravity Urine 1.025 (1.000-1.030); Urobilinogen Urine Negative (Negative)
[2024-01-02 21:03] LABS: Bacteria Urine None Seen (None Seen); Epithelial Cell Urine 0-2 /hpf (0-2); RBC Urine >20 /hpf (0-2); WBC Urine 0-5 /hpf (0-5)
--- NOTE | 2024-01-02 23:05 | History & Physical Report ---
Date of Service January 02, 2024 Assessment & Plan (1) Acute urinary retention: (2) Gross hematuria: (3) Status post recent transurethral resection of prostate: (4) BPH NOS w ur obs/LUTS: (5) Thrombocytopenia: (6) Heart failure with improved ejection fraction (HFimpEF): (7) S/P coronary artery stent placement: Plan Acute urinary retention/status post TURP/gross hematuria with clots/Boogie catheter placed in ED- Follow urine culture and sensitivity Ceftriaxone 2 g IV daily Continue tamsulosin 0.4 mg at bedtime NSS 500ml IV fluid bolus LR at 100 mL/h Hold aspirin and clopidogrel for now Consult urology Patient has potential to develop sepsis, admit to monitored bed Continue Boogie catheter CAD/hypertension/SERGO to mid LAD x 2 on 04-02-2023-- Hold aspirin and clopidogrel briefly Hold furosemide and potassium chloride Most recent echo on 04/03/2023 with EF 40-45% Continue Entresto, metoprolol succinate and atorvastatin Consult cardiology Dr. Alcantar for advice on potential cessation of clopidogrel Chronic thrombocytopenia- Platelets 86 on admission, with range 51-85 Follow serially Sees hematology as outpatient History of Present Illness Chief Complaint: The patient presents to the emergency department with history of undergoing a TURP procedure on 12/16/2023. He had a postop Boogie catheter placed that was then removed 1 week ago, and had been doing well until 3 days ago. At that time he started to develop progressively worsening difficulty with urination, and today, due to being unable to urinate, he presents to the ED for assessment. Boogie catheter was placed placed in the ED, and patient emptied about 1600 cc per the ED physician. There was an attempt at have him go home, however, hematuria persisted, and patient intermittently had clots released, and decision was made to admit patient for further evaluation and treatment. Primary Care Provider: Jeff Newell The patient is a 78-year-old male with a past medical history including BPH with LUTS, HFimpEF, status post cardiac catheterization on 04/02/2023 with SERGO x 2 and mid LAD, hyperlipidemia, B12 deficiency, and hypertension. The patient presents to the emergency department with gross hematuria, and decreased urinary output as noted above. Patient has continued on aspirin and clopidogrel since his cardiac catheterization and stent placement on 04/02/2023, other than for 3-day interval prior to having the TURP performed on 12/16/2023 Allergies Allergy/AdvReac Type Severity Reaction Status Date / Time No Known Allergies Allergy Verified 01/02/24 23:44 Home Medications Medication Instructions Recorded Confirmed Type aspirin 81 mg tablet,delayed 81 mg PO QAM #90 tabs 04/05/23 01/02/24 Rx release cyanocobalamin (vitamin B-12) 1,000 mcg PO DAILY #90 tabs 04/05/23 01/02/24 Rx 1,000 mcg tablet furosemide 20 mg tablet (Lasix) 20 mg PO QAM PRN edema/fluid 04/05/23 01/02/24 Rx weight gain #14 tabs metoprolol succinate 25 mg 25 mg PO QAM #30 tabs 04/05/23 01/02/24 Rx tablet,extended release 24 hr nitroglycerin 0.4 mg sublingual 0.4 mg sublingual Q5M PRN chest 04/05/23 01/02/24 Rx tablet (Nitrostat) pain #1 btl sacubitril 24 mg-valsartan 26 mg 1 tab PO BID #180 tabs 04/13/23 01/02/24 Rx tablet (Entresto) dapagliflozin propanediol 10 mg 10 mg PO QAM 11/09/23 01/02/24 History tablet (Farxiga) tamsulosin 0.4 mg capsule 0.4 mg PO HS #90 caps 12/04/23 01/02/24 Rx atorvastatin 80 mg tablet (Lipitor) 80 mg PO QAM #90 tabs 12/07/23 01/02/24 Rx clopidogrel 75 mg tablet 75 mg PO QAM #90 tabs 12/07/23 01/02/24 Rx potassium chloride 10 mEq 10 meq PO DAILY PRN only when you 12/16/23 01/02/24 History tablet,extended release take furosemide water pill Past Med/Surg History Problem List (Updated 01/03/24 @ 05:29 by Jimbo Pressley MD) Thrombocytopenia chronic for patient > sees hematology Status post recent transurethral resection of prostate Gross hematuria BPH NOS w ur obs/LUTS Heart failure with improved ejection fraction (HFimpEF) Incomplete emptying of bladder Acute urinary retention Orthostatic hypotension S/P coronary artery stent placement HFrEF (heart failure with reduced ejection fraction) Improved EF per 07/2023 cardio records (EF 55-60% per 07/2023 ECHO) Medical History (Updated 01/03/24 @ 05:29 by Jimbo Pressley MD) Hx of Clostridium difficile infection Aug 2023 > after antibiotics for UTI > now resolved BPH (benign prostatic hyperplasia) Urinary retention CAD (coronary artery disease) LAD PCI x 2 (04/02/23) Prediabetes diet controlled Ischemic cardiomyopathy Farxiga for this per pt not diabetes Dyslipidemia Non-ST elevation RI (NSTEMI) 03/2023 > stents > [facility] HTN (hypertension) Surgical History (Updated 01/03/24 @ 05:29 by Jimbo Pressley MD) History of colonoscopy Hx of nasal polypectomy History of heart artery stent 03/2023 > [facility] > 2 stents History of cardiac cath 03/2023 > [facility] > 2 stents Family History Father Stroke Hypertension Dyslipidemia Mother Diabetes Thrombocytopenia Hypertension Dyslipidemia Brother Diabetes Social History Smoking Status: Never smoker Second Hand Exposure: No; Do You Dip or Chew Tobacco: No; Hx Alcohol Use: No Hx Substance Use: No Preferred Language: Belarusian Communication Ability: Effective Manager Branch Required: No Beliefs That Will Affect Care: None Current Living Situation: Spouse Feels Safe at Home: Yes Assistive Devices: Glasses Review of Systems Review of Systems: The patient denies chest pain, palpitations, shortness of breath, dyspnea on exertion, cough, lower extremity swelling, sore throat, fevers, chills, sweats, vomiting, diarrhea , constipation, blood in stool, lightheadedness, dizziness, headache, memory loss, loss of consciousness, rash, imbalance, focal or generalized weakness, numbness or tingling in arms or legs, generalized arthralgias or myalgias, back or neck pain, or night sweats. The review of systems is otherwise negative other than for that already noted above, and at least 10 systems have been reviewed. Physical Exam Physical Exam: The patient is awake, alert and oriented 3, well developed and well nourished, normocephalic and atraumatic, sitting upright in bed and in no acute distress. HEENT--PERRL, EOMI, mucous membranes and oropharynx dry. Neck--supple. No JVD. No bruits. Thyroid normal, trachea midline, no adenopathy. Heart--normal S1 and S2. No murmurs, rubs or gallops. Lungs--clear bilaterally, no respiratory distress, no accessory muscle use. Abdomen--normal bowel sounds and soft. Nontender. Nondistended, no hernias or masses, no organomegaly. Extremities--no cyanosis or clubbing. No edema. Dermatologic--normal skin turgor, normal color, no abnormal lymph nodes, no rash. Neurologic--cranial nerves II through XII grossly intact. Rheumatologic--normal range of motion. Psychiatric--normal affect. Results & Data Results & Data Vital Signs (Past 12 Hours) Vital Signs Temp Pulse Pulse Resp BP BP Pulse Ox 01/02/24 19:48 97 H 24 150/94 H 97 01/02/24 19:48 97 01/02/24 19:47 95 H 01/02/24 19:30 36.8 C 98 H 16 129/75 96 O2 Del Method 01/02/24 19:48 01/02/24 19:48 Room Air 01/02/24 19:47 01/02/24 19:30 Room Air Laboratory Results Laboratory Results WBC 6.97 K/ul (4.8-10.8) 01/03/24 04:04 RBC 3.06 M/uL (4.70-6.10) L 01/03/24 04:04 Hgb 9.6 g/dl (14.0-18.0) L D 01/03/24 04:04 Hct 28.0 % (42.0-52.0) L 01/03/24 04:04 MCV 91.5 fL (80.0-100.0) 01/03/24 04:04 MCH 31.4 pg (25.0-34.0) 01/03/24 04:04 MCHC 34.3 g/dL (32.0-36.0) 01/03/24 04:04 RDW Std Deviation 42.4 fL (36.4-46.3) 01/03/24 04:04 RDW Coeff of Ramu 12.7 % (11.5-14.5) 01/03/24 04:04 Plt Count 61 K/uL (130-400) L 01/03/24 04:04 Immature Gran % (Auto) 0.4 % 01/03/24 04:04 Neut % (Auto) 74.1 % 01/03/24 04:04 Lymph % (Auto) 12.9 % 01/03/24 04:04 [place] % (Auto) 10.5 % 01/03/24 04:04 Eos % (Auto) 1.7 % 01/03/24 04:04 Baso % (Auto) 0.4 % 01/03/24 04:04 Neut # (Auto) 5.16 K/uL (1.40-6.50) 01/03/24 04:04 Lymph # (Auto) 0.90 K/uL (1.20-3.40) L 01/03/24 04:04 [place] # (Auto) 0.73 K/uL (0.11-0.59) H 01/03/24 04:04 Eos # (Auto) 0.12 K/uL (0.00-0.50) 01/03/24 04:04 Baso # (Auto) 0.03 K/uL (0.00-0.20) 01/03/24 04:04 Immature Gran # (Auto) 0.03 K/uL (0.01-0.20) 01/03/24 04:04 Platelet Estimate Decreased (Normal) L 01/03/24 04:04 PT 11.6 Seconds (9.0-12.0) 01/02/24 19:37 INR 1.1 (0.9-1.1) 01/02/24 19:37 APTT 27 Seconds (21-31) 01/02/24 19:37 PTT Ratio 1.0 01/02/24 19:37 Sodium 135 mmol/L (136-145) L 01/03/24 04:04 Potassium 3.6 mmol/L (3.5-5.1) 01/03/24 04:04 Chloride 106 mmol/L (98-107) 01/03/24 04:04 Carbon Dioxide 20 mmol/L (21-32) L 01/03/24 04:04 Anion Gap 9 (3-11) 01/03/24 04:04 BUN 26 mg/dl (6-23) H 01/03/24 04:04 Creatinine 1.18 mg/dl (0.6-1.4) 01/03/24 04:04 Est Cr Clr Drug Dosing 59.2 ml/min 01/03/24 04:04 Est GFR ( Amer) 68.6 ml/min 01/03/24 04:04 Est GFR (Non-Af Amer) 59.2 ml/min 01/03/24 04:04 BUN/Creatinine Ratio 22.0 (10-20) H 01/03/24 04:04 Glucose 102 mg/dl (70-99(Fasting)) H 01/03/24 04:04 Calcium 8.1 mg/dl (8.6-10.3) L 01/03/24 04:04 Phosphorus 4.1 mg/dl (2.5-4.9) 01/03/24 04:04 Magnesium 1.8 mg/dl (1.7-2.4) 01/03/24 04:04 Total Bilirubin 1.5 mg/dl (0.2-1.0) H 01/02/24 19:37 AST 26 U/L (13-39) 01/02/24 19:37 ALT 18 U/L (7-52) 01/02/24 19:37 Alkaline Phosphatase 66 U/L (34-104) 01/02/24 19:37 Total Protein 7.0 gm/dl (6.0-8.3) 01/02/24 19:37 Albumin 3.3 gm/dl (3.4-5.0) L 01/03/24 04:04 Globulin 2.4 gm/dl (2.5-4.0) L 01/02/24 19:37 Albumin/Globulin Ratio 1.9 (0.9-2) 01/02/24 19:37 Urine Color Red 01/02/24 Unknown Urine Appearance Cloudy (Clear) A 01/02/24 Unknown Urine pH 7.0 (4.5-7.5) 01/02/24 Unknown Ur Specific [place] 1.025 (1.000-1.030) 01/02/24 Unknown Urine Protein 3+ (Negative) H 01/02/24 Unknown Urine Glucose (UA) 1+ (Negative) H 01/02/24 Unknown Urine Ketones Trace (Negative) H 01/02/24 Unknown Urine Blood 3+ (Negative) H 01/02/24 Unknown Urine Nitrite Positive (Negative) A 01/02/24 Unknown Urine Bilirubin 2+ (Negative) H 01/02/24 Unknown Urine Urobilinogen Negative (Negative) 01/02/24 Unknown Ur Leukocyte Esterase Negative (Negative) 01/02/24 Unknown Urine RBC >20 /hpf (0-2) H 01/02/24 Unknown Urine WBC 0-5 /hpf (0-5) 01/02/24 Unknown Ur Epithelial Cells 0-2 /hpf (0-2) 01/02/24 Unknown Urine Bacteria None Seen (None Seen) 01/02/24 Unknown Code Status & VTE Plan Code Status Full code VTE Prophylaxis Plan VTE Prophylaxis will be ordered: Yes PG Care Time/CCT Total # of Minutes Spent Total Time Spent with Patient: Total time spent is greater than 50% in coordination of care (as documented) at patient's floor/unit and/or counseling patient: Coding Level of Care Code 62946 INT INP/OBS CARE 3/75MIN Diagnoses Acute urinary retention R33.8 Gross hematuria R31.0 Status post recent transurethral resection of prostate Z98.890 BPH NOS w ur obs/LUTS N40.1 Thrombocytopenia D69.6 Heart failure with improved ejection fraction (HFimpEF) I50.32 S/P coronary artery stent placement Z95.5
[2024-01-02] MEDS ORDERED: cefTRIAXone SODIUM 2,000 MG/50 ML BAG IV STA (23:07)
[2024-01-02] MEDS: TAMSULOSIN HCL 0.4 MG CAP PO STA (23:36)
[2024-01-02] MEDS: LACTATED RINGER'S 1,000 ML IV STA (23:36)
[2024-01-03] MEDS: cefTRIAXone SODIUM 1,000 MG/50 ML BAG IV STA ×2 (00:11)
[2024-01-03] MEDS ORDERED: ACETAMINOPHEN 325 MG TAB PO PRN (00:52)
[2024-01-03] MEDS ORDERED: NITROGLYCERIN SL 0.4 MG/TAB TAB SL PRN (00:52)
[2024-01-03] MEDS: SODIUM CHLORIDE 0.9% 500 ML IV ONE ×2 (03:16→06:02)
[2024-01-03 05:04] LABS: Albumin Level 3.3 gm/dl (3.4-5.0); Calcium 8.1 mg/dl (8.6-10.3); Creatinine Clr Calc Pharmacy 59.2 ml/min; Est GFR (African American) 68.6 ml/min; Est GFR (Non-African American) 59.2 ml/min; Magnesium 1.8 mg/dl (1.7-2.4); Phosphorus 4.1 mg/dl (2.5-4.9); Potassium 3.6 mmol/L (3.5-5.1)
[2024-01-03 05:08] LABS: Hemoglobin 9.6 g/dl (14.0-18.0); Mean Corpuscular Hemoglobin 31.4 pg (25.0-34.0); Mean Corpuscular Hgb Conc 34.3 g/dL (32.0-36.0); Mean Corpuscular Volume 91.5 fL (80.0-100.0); Platelet Count 61 K/uL (130-400); RDW Coefficient of Variation 12.7 % (11.5-14.5); RDW Standard Deviation 42.4 fL (36.4-46.3); Red Blood Count 3.06 M/uL (4.70-6.10); White Blood Count 6.97 K/ul (4.8-10.8)
[2024-01-03 05:16] LABS: Basophils # (auto) 0.03 K/uL (0.00-0.20); Basophils % (auto) 0.4 %; Eosinophils # (auto) 0.12 K/uL (0.00-0.50); Eosinophils % (auto) 1.7 %; Immature Granulocytes # (auto) 0.03 K/uL (0.01-0.20); Immature Granulocytes % (auto) 0.4 %; Lymphocytes % (auto) 12.9 %; Monocytes # (auto) 0.73 K/uL (0.11-0.59); Monocytes % (auto) 10.5 %; Neutrophils # (auto) 5.16 K/uL (1.40-6.50); Neutrophils % (auto) 74.1 %; Platelet Estimate Decreased (Normal)
[2024-01-03] MEDS: ALBUMIN 25% 25 GM/100 ML VIAL IV ONE (05:58)
--- NOTE | 2024-01-03 08:35 | Urology Consultation ---
Date of Consultation January 03, 2024 Assessment & Plan (1) Thrombocytopenia: (2) BPH NOS w ur obs/LUTS: (3) Gross hematuria: Plan 78-year-old male with a history of thrombocytopenia and heart attack with stents in place requiring anticoagulation who had urinary retention. He is status post TURP on 12/16/2023. He passed a void trial in clinic on 12/22/2023. He presented the emergency department last night with gross hematuria. He was cathed with return of 1200 cc of urine per the ED physician. Labs showed a hemoglobin of 12.9, platelets of 86 and a creatinine of 1.40. Procedure: Attempted to irrigate through 16 [place]an catheter with minimal success so I opted to switch him out. Boogie catheter balloon was deflated and it was removed. Under sterile conditions, 24 [place]an three-way catheter was inserted and the balloon was inflated with 10 cc of sterile water. I irrigated the bladder with 1 L of normal saline. Urine was still fairly bloody so opted to hook him up to continuous bladder irrigation. Recommendations patient can have a diet. Urology has placed. Started on CBI and orders have been placed. Nursing can titrate as needed or hand irrigate as needed Continue ceftriaxone while on CBI Recommend holding his Plavix currently Urology to follow Update: Rapid response was called on patient in the emergency department. It appeared his CBI had clotted off it was likely due to overextension of his bladder. I irrigated out several small clots and drained his bladder. Abdominal exam normalized. He started back on CBI without issues Greater than 75 minutes was spent with the patient History of Present Illness Attending Physician: Emmanuel Ca MD History of Present Illness 78-year-old male with a history of thrombocytopenia and heart attack with stents in place requiring anticoagulation who had urinary retention. He is status post TURP on 12/16/2023. He passed a void trial in clinic on 12/22/2023. He presented the emergency department last night with gross hematuria. He was cathed with return of 1200 cc of urine per the ED physician. Labs showed a hemoglobin of 12.9, platelets of 86 and a creatinine of 1.40. Labs the following day showed a hemoglobin of 9.6, platelets of 61 and a creatinine of 1.18. Urine was nitrite positive but otherwise negative outside of RBCs. Blood pressures have been low in the 80s and 90s systolic with a one-time elevated heart rate of 108. Currently 86 heart rate with BP of 91/53. Reports he was urinating at home without issues before developing clot retention last night Allergies Allergy/AdvReac Type Severity Reaction Status Date / Time No Known Allergies Allergy Verified 01/02/24 23:44 Home Medications Medication Instructions Recorded Confirmed Type aspirin 81 mg tablet,delayed 81 mg PO QAM #90 tabs 04/05/23 01/02/24 Rx release cyanocobalamin (vitamin B-12) 1,000 mcg PO DAILY #90 tabs 04/05/23 01/02/24 Rx 1,000 mcg tablet furosemide 20 mg tablet (Lasix) 20 mg PO QAM PRN edema/fluid 04/05/23 01/02/24 Rx weight gain #14 tabs metoprolol succinate 25 mg 25 mg PO QAM #30 tabs 04/05/23 01/02/24 Rx tablet,extended release 24 hr sacubitril 24 mg-valsartan 26 mg 1 tab PO BID #180 tabs 04/13/23 01/02/24 Rx tablet (Entresto) dapagliflozin propanediol 10 mg 10 mg PO QAM 11/09/23 01/02/24 History tablet (Farxiga) tamsulosin 0.4 mg capsule 0.4 mg PO HS #90 caps 12/04/23 01/02/24 Rx atorvastatin 80 mg tablet (Lipitor) 80 mg PO QAM #90 tabs 12/07/23 01/02/24 Rx clopidogrel 75 mg tablet 75 mg PO QAM #90 tabs 12/07/23 01/02/24 Rx potassium chloride 10 mEq 10 meq PO DAILY PRN only when you 12/16/23 01/02/24 History tablet,extended release take furosemide water pill nitroglycerin 0.4 mg sublingual 0.4 mg sublingual Q5M PRN chest 01/03/24 Rx tablet (Nitrostat) pain #1 btl Patient History Medical History (Updated 01/03/24 @ 05:29 by Jimbo Pressley MD) Hx of Clostridium difficile infection Aug 2023 > after antibiotics for UTI > now resolved BPH (benign prostatic hyperplasia) Urinary retention CAD (coronary artery disease) LAD PCI x 2 (04/02/23) Prediabetes diet controlled Ischemic cardiomyopathy Farxiga for this per pt not diabetes Dyslipidemia Non-ST elevation CA (NSTEMI) 03/2023 > stents > [facility] HTN (hypertension) Surgical History (Updated 01/03/24 @ 05:29 by Jimbo Pressley MD) History of colonoscopy Hx of nasal polypectomy History of heart artery stent 03/2023 > [facility] > 2 stents History of cardiac cath 03/2023 > [facility] > 2 stents Family History Father Stroke Hypertension Dyslipidemia Mother Diabetes Thrombocytopenia Hypertension Dyslipidemia Brother Diabetes Social History Smoking Status: Never smoker Second Hand Exposure: No; Do You Dip or Chew Tobacco: No; Hx Alcohol Use: No Hx Substance Use: No Preferred Language: Syriac Communication Ability: Effective 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 Beliefs That Will Affect Care: None Current Living Situation: Spouse Feels Safe at Home: Yes Assistive Devices: Glasses Physical Exam Physical Exam: General: Alert and oriented, no acute distress HEENT: Normocephalic, mucous membranes moist Pulmonary: Nonlabored respirations Abdomen: Nondistended : Boogie catheter with maroon blood in tubing Extremities: Moves all 4 spontaneously Neuro: No gross deficits Skin: Warm, dry, no rashes noted Results & Data Vital Signs (Past 12 Hours) Vital Signs Pulse Pulse Resp BP Pulse Ox Pulse Ox O2 Del Method 01/03/24 08:04 86 17 91/53 L 100 Room Air 01/03/24 07:10 84 01/03/24 06:43 108 H 20 96/61 L 96 Room Air 01/03/24 04:00 89 20 83/61 L 97 Room Air 01/03/24 02:00 85 20 105/61 98 Room Air 01/03/24 02:00 97 O2 Del Method 01/03/24 08:04 01/03/24 07:10 01/03/24 06:43 01/03/24 04:00 01/03/24 02:00 01/03/24 02:00 Room Air PG Care Time/CCT Total # of Minutes Spent Total Time Spent with Patient: Total time spent is greater than 50% in coordination of care (as documented) at patient's floor/unit and/or counseling patient: Coding Level of Care Code 59932 INT INP/OBS CARE 375MIN Diagnoses Thrombocytopenia D69.6 BPH NOS w ur obs/LUTS N40.1 Gross hematuria R31.0
[2024-01-03] MEDS: METOPROLOL SUCC 25MG EXT REL TAB PO SCH (09:00)
[2024-01-03] MEDS: VALSARTAN/SACUBITRIL 26/24MG TAB PO SCH (09:00)
[2024-01-03] MEDS: ATORVASTATIN 40 MG TAB PO SCH (10:10)
[2024-01-03 10:40] LABS: iSTAT Creatinine 1.3 mg/dl (0.6-1.3); iSTAT Hemoglobin 8.2 g/dl (14.0-18.0); iSTAT Ionized Calcium 1.17 mmol/l (1.12-1.32); iSTAT Potassium 3.8 mmol/L (3.3-5.0)
[2024-01-03 10:48] LABS: Hematocrit (blood only) 26.2 % (42.0-52.0); Hemoglobin 8.6 g/dl (14.0-18.0); Mean Corpuscular Hemoglobin 30.5 pg (25.0-34.0); Mean Corpuscular Hgb Conc 32.8 g/dL (32.0-36.0); Mean Corpuscular Volume 92.9 fL (80.0-100.0); Platelet Count 91 K/uL (130-400); RDW Coefficient of Variation 12.6 % (11.5-14.5); RDW Standard Deviation 43.5 fL (36.4-46.3); Red Blood Count 2.82 M/uL (4.70-6.10); White Blood Count 9.84 K/ul (4.8-10.8)
[2024-01-03 10:57] LABS: Basophils # (auto) 0.03 K/uL (0.00-0.20); Basophils % (auto) 0.3 %; Eosinophils # (auto) 0.05 K/uL (0.00-0.50); Eosinophils % (auto) 0.5 %; Immature Granulocytes # (auto) 0.03 K/uL (0.01-0.20); Immature Granulocytes % (auto) 0.3 %; Lymphocytes # (auto) 1.77 K/uL (1.20-3.40); Monocytes # (auto) 0.82 K/uL (0.11-0.59); Monocytes % (auto) 8.3 %; Neutrophils # (auto) 7.14 K/uL (1.40-6.50); Neutrophils % (auto) 72.6 %
[2024-01-03] MEDS: SODIUM CHLORIDE 0.9% 1,000 ML IV SCH (10:57)
--- NOTE | 2024-01-03 11:31 | Hospitalist Progress Note ---
Date of Service January 03, 2024 Assessment & Plan (1) Acute urinary retention: Plan: Most likely from blood clots related to recent TUR procedure. Boogie catheter is now in place. Appreciate urology consultation and assistance. (2) Gross hematuria: Plan: Due to recent TUR procedure, December 15. Boogie catheter is now in place. Continuous bladder irrigation underway. Appreciate urology consultation and recommendations (3) Vasovagal episode: Plan: This morning, January 02, associated with urology manipulation and changing of Boogie catheter. He has now recovered. No evidence of acute coronary syndrome (4) Status post recent transurethral resection of prostate: Plan: Performed on December 15 of this year (5) BPH NOS w ur obs/LUTS: Plan: Boogie catheter is now in place with continuous bladder irrigation. Appreciate urology consultation and recommendations (6) Thrombocytopenia: Plan: Mild currently. No need for transfusion. Serial labs (7) Heart failure with improved ejection fraction (HFimpEF): Plan: Stable. Continue current medical management. Monitor intake and output (8) S/P coronary artery stent placement: Plan: Stable. Continue current medications although Plavix is on hold temporarily Plan Hopeful discharge to home within the next 48 to 72 hours Admission and Anticipated Discharge Date Admission Date: January 02, 2024 Subjective Apparent vasovagal episode this morning with transient hypotension while Boogie catheter was being replaced by urology. The patient has since recovered and will be admitted to the PCU on continuous IV fluids. He is now getting continuous bladder irrigation for the gross hematuria. Hemoglobin will be rechecked at 2 PM today. Platelet count is 90,000 today, January 02, and does not require transfusion and will be followed daily. Review of Systems 2 Review of Systems: Constitutional-no fever or chills ENT-no blurred vision, no double vision, no epistaxis, no sore throat Respiratory-no cough, no wheezing, no shortness of breath Cardiac-no palpitations, no chest pain, no syncope GI-no nausea, vomiting, diarrhea, melena, hematochezia -Boogie catheter in place draining urine with gross hematuria evident Musculoskeletal-no joint pain, no muscle tenderness Skin-pallor noted associated with vasovagal episode this morning Neuro-no isolated weakness, no paresthesia Psych-no depression, no anxiety Physical Exam 2 Physical Exam: General-alert and oriented x3, no fever, no chills HEENT-head atraumatic and normocephalic, pupils equal and reactive to light, extraocular muscles intact Neck-no lymphadenopathy or thyromegaly, trachea midline Chest-clear to auscultation. No rales, wheezing or rhonchi Cardiac-regular rate and rhythm, normal S1 and S2 Abdomen-normal bowel sounds, no hepatosplenomegaly GUFoley catheter in place draining urine with gross hematuria Extremities-no cyanosis, clubbing, or edema Neuro-cranial nerves II through XII intact, motor and sensory function within normal limits, strength symmetrical, no focal deficits Psych-normal affect, normal mood Results & Data Results & Data Vital Signs (Past 12 Hours) Vital Signs Pulse Pulse Resp BP BP Pulse Ox Pulse Ox 01/03/24 11:05 92/55 L 01/03/24 11:00 100 H 20 100 01/03/24 10:55 89/55 L 01/03/24 10:54 92 H 18 100 01/03/24 10:51 93 H 16 99 01/03/24 10:50 99/59 L 01/03/24 10:48 92 H 21 97 01/03/24 10:45 88 12 100 01/03/24 10:37 103/57 L 01/03/24 10:30 119/64 01/03/24 10:30 95 H 29 H 100 01/03/24 10:24 99/59 L 01/03/24 10:03 120 H 15 100 01/03/24 09:54 99 H 24 98 01/03/24 09:45 102 H 16 99 01/03/24 09:33 109 H 21 99 01/03/24 09:30 94/64 L 01/03/24 09:23 98 H 23 98 01/03/24 09:02 86 20 99 01/03/24 09:00 119/73 01/03/24 08:59 120 H 23 100 01/03/24 08:50 80 18 98 01/03/24 08:20 86 15 99 01/03/24 08:11 82 19 100 01/03/24 08:04 86 17 91/53 L 100 01/03/24 08:02 86 10 L 100 01/03/24 07:59 85 23 100 01/03/24 07:41 76 12 99 01/03/24 07:38 76 10 L 98 01/03/24 07:23 98 01/03/24 07:14 89 19 99 01/03/24 07:10 84 01/03/24 06:43 108 H 20 96/61 L 96 01/03/24 04:00 89 20 83/61 L 97 01/03/24 02:00 85 20 105/61 98 01/03/24 02:00 97 O2 Del Method O2 Del Method 01/03/24 11:05 01/03/24 11:00 01/03/24 10:55 01/03/24 10:54 01/03/24 10:51 01/03/24 10:50 01/03/24 10:48 01/03/24 10:45 01/03/24 10:37 01/03/24 10:30 01/03/24 10:30 01/03/24 10:24 01/03/24 10:03 01/03/24 09:54 01/03/24 09:45 01/03/24 09:33 01/03/24 09:30 01/03/24 09:23 01/03/24 09:02 01/03/24 09:00 01/03/24 08:59 01/03/24 08:50 01/03/24 08:20 01/03/24 08:11 01/03/24 08:04 Room Air 01/03/24 08:02 01/03/24 07:59 01/03/24 07:41 01/03/24 07:38 01/03/24 07:23 01/03/24 07:14 01/03/24 07:10 01/03/24 06:43 Room Air 01/03/24 04:00 Room Air 01/03/24 02:00 Room Air 01/03/24 02:00 Room Air Laboratory Results 01/03/24 10:27 PG Care Time/CCT Total # of Minutes Spent Total Time Spent with Patient: Total time spent is greater than 50% in coordination of care (as documented) at patient's floor/unit and/or counseling patient: Coding Level of Care Code 78317 SUB INP/OBS CARE 3/50MIN Diagnoses Acute urinary retention R33.8 Gross hematuria R31.0 Vasovagal episode R55 Status post recent transurethral resection of prostate Z98.890 BPH NOS w ur obs/LUTS N40.1 Thrombocytopenia D69.6 Heart failure with improved ejection fraction (HFimpEF) I50.32 S/P coronary artery stent placement Z95.5
[2024-01-03 11:42] LABS: Albumin Globulin Ratio 2.2 (0.9-2); Albumin Level 3.7 gm/dl (3.4-5.0); Bilirubin,Total 1.2 mg/dl (0.2-1.0); Calcium 8.4 mg/dl (8.6-10.3); Creatinine Clr Calc Pharmacy 55.5 ml/min; Est GFR (African American) 63.3 ml/min; Est GFR (Non-African American) 54.7 ml/min; Globulin 1.7 gm/dl (2.5-4.0); Potassium 3.8 mmol/L (3.5-5.1); Total Protein 5.4 gm/dl (6.0-8.3)
--- NOTE | 2024-01-03 13:07 | Cardiology Consultation ---
Date of Consultation January 03, 2024 Assessment & Plan (1) CAD (coronary artery disease): (2) S/P coronary artery stent placement: (3) Heart failure with improved ejection fraction (HFimpEF): (4) Vasovagal episode: (5) Acute blood loss anemia: (6) Gross hematuria: (7) HTN (hypertension): (8) Dyslipidemia: Plan ASSESSMENT/PLAN: 1. CAD s/p LAD PCI x 2: No angina. Profound hematuria with significant drop in hemoglobin, dropping 6.5 g/dl. For concern of life-threatening bleed, can hold aspirin but resume as soon as able. Spoke with Dr. Hill of urology and he is okay with aspirin 81 mg daily. Resume ASA 81 mg daily as soon as abl. Can hold Plavix given significant bleed. Has completed greater than 6 months of dual antiplatelet therapy from PCI and although 1 year is optimal, risk/benefit favors holding Plavix for now. Dr. Hill is okay with resuming Plavix in the future. Continue beta-lidia and high intensity statin therapy. 2. Heart failure with improved EF: Euvolemic on exam. Only uses Lasix on an as-needed basis in the outpatient setting. Continue low-dose metoprolol succinate. Entresto has been held due to hypotension. Can hold SGLT2 inhibitor for now and resume on discharge. 3. Vasovagal event: Near syncope with bladder distention and discomfort during irrigation and clotted catheter. Resolved. 4. Gross hematuria with acute blood loss anemia: Urology is directing care. Had TURP on 12/16/2023. Holding Plavix as above. 5. Hypertension: History of hypertension but mildly hypotensive to normotensive here. Can hold Entresto and beta-lidia if necessary. Hypotension likely due to significant blood loss from hematuria. 6. Dyslipidemia: High intensity statin therapy. 7. Disposition: Cardiology will sign off. Please call if further questions or concerns. Patient care discussed with Dr. Hill and communicated with Dr. Ca. Today's visit was 55 minutes in duration, which includes [id number] time, counseling patient, coordinating care, reviewing records, communicating with other providers, and completing documentation. History of Present Illness Reason for Consultation: "Gross hematuria, on ASA/plavix, LAD DESx2" Requesting Physician: Dr. Pressley Attending Physician: Emmanuel Ca MD History of Present Illness Mr. Wilder is a very pleasant 78-year-old gentleman with a history significant for CAD s/p LAD PCI, NSTEMI (Mar 2023), ischemic cardiomyopathy, HFrEF, hypertension, dyslipidemia, and chronic thrombocytopenia. He has had the following studies/procedures: 1. Echo 04/02/2023 [facility]: EF 35 to 40%. Akinesis of the apex and mid anteroseptum. Hypokinesis of the mid anterior, mid anterolateral, mid inferoseptal, mid inferior wall segments. Mild LVH. Moderate MR. RVSP 40-45. 2. Cardiac cath 04/02/2023 [facility]: Distal LM 20% with calcifications. Proximal LAD 30 to 40% diffuse. Mid LAD 90%. Distal LAD 20 to 30%. NIDIA II flow in the LAD. Large D1 proximal 70%. Distal circumflex 50 to 60%. High OM1 proximal 60 to 70% with mid 40 to 50%. Circumflex gives off robust left to right collaterals. Dominant RCA. Proximal RCA 100%. PL 50 to 70%. LVEDP 8 (after significant diuresis). Underwent PCI of mid LAD with overlapping SERGO 2.5 x 8 and 2.5 x 15 mm [place]. Postdilated with 2.5 NC. Hypotension occurred during PCI (received IV fluids and norepinephrine). Postprocedural LVEDP 16. 3. Echo 04/03/2023 (limited): EF 40 to 45%. Akinesis of the apex and mid anteroseptum. Hypokinesis of the mid anterior, mid anterolateral, mid inferoseptal, mid inferior wall segments. Moderate MR. 4. Echo 07/03/2023 [facility] (limited): Top normal LV size. EF 55 to 60%. Hypokinesis of the mid anteroseptum and apex (small area). Mild LVH. No visualized apical thrombus. He is here today for routine cardiology appointment. Since last visit, he has had intermittent hematuria but since resolved. He had possible UTI, was treated with antibiotics and then developed diarrhea and later diagnosed with C. difficile. He has been on vancomycin for the past few days and diarrhea has significantly improved. He was admitted on 01/02/2024 with hematuria. He underwent TURP on 12/16/2023 and developed gross hematuria 3 days ago. He noted bright red blood and also clots. His urinary catheter was clogged. When this occurred, he also had discomfort in the suprapubic area. He was seen by urology this morning. Irrigation with a 16 [place] catheter was minimally successful and a 24 [place] three-way catheter was inserted. Urine was still bloody so continuous bladder irrigation was recommended. Unfortunately, the catheter clotted off and he developed suprapubic pain with near syncope, diaphoresis, and nausea. Rapid response was initiated. Urology irrigated several small clots and drained his bladder and his abdominal exam normalized and he felt much better. His hemoglobin was 14.5 on 11/30/2023 and most recently this afternoon dropped to 8. He has not received blood transfusion for this acute blood loss anemia. He denies chest pain, shortness of breath, syncope, palpitations, edema, melena, or hematochezia. His son was present at the bedside. Review of systems:As above. Family history:Father from stroke at 82. Social history:He denies tobacco, alcohol, or drug abuse. He lives at home with his . They have 1 adult son and 2 grandsons. He lives in [place]. Retired from retail sales. [employer]. Allergies Allergy/AdvReac Type Severity Reaction Status Date / Time No Known Allergies Allergy Verified 01/02/24 23:44 Home Medications Medication Instructions Recorded Confirmed Type aspirin 81 mg tablet,delayed 81 mg PO QAM #90 tabs 04/05/23 01/02/24 Rx release cyanocobalamin (vitamin B-12) 1,000 mcg PO DAILY #90 tabs 04/05/23 01/02/24 Rx 1,000 mcg tablet furosemide 20 mg tablet (Lasix) 20 mg PO QAM PRN edema/fluid 04/05/23 01/02/24 Rx weight gain #14 tabs metoprolol succinate 25 mg 25 mg PO QAM #30 tabs 04/05/23 01/02/24 Rx tablet,extended release 24 hr sacubitril 24 mg-valsartan 26 mg 1 tab PO BID #180 tabs 04/13/23 01/02/24 Rx tablet (Entresto) dapagliflozin propanediol 10 mg 10 mg PO QAM 11/09/23 01/02/24 History tablet (Farxiga) tamsulosin 0.4 mg capsule 0.4 mg PO HS #90 caps 12/04/23 01/02/24 Rx atorvastatin 80 mg tablet (Lipitor) 80 mg PO QAM #90 tabs 12/07/23 01/02/24 Rx clopidogrel 75 mg tablet 75 mg PO QAM #90 tabs 12/07/23 01/02/24 Rx potassium chloride 10 mEq 10 meq PO DAILY PRN only when you 12/16/23 01/02/24 History tablet,extended release take furosemide water pill nitroglycerin 0.4 mg sublingual 0.4 mg sublingual Q5M PRN chest 01/03/24 Rx tablet (Nitrostat) pain #1 btl Patient History Medical History (Updated 01/03/24 @ 15:01 by Enrique Alcantar MD) Hx of Clostridium difficile infection Aug 2023 > after antibiotics for UTI > now resolved BPH (benign prostatic hyperplasia) Urinary retention CAD (coronary artery disease) LAD PCI x 2 (04/02/23) Prediabetes diet controlled Ischemic cardiomyopathy Farxiga for this per pt not diabetes Dyslipidemia Non-ST elevation CA (NSTEMI) 03/2023 > stents > [facility] HTN (hypertension) Surgical History (Updated 01/03/24 @ 05:29 by Jimbo Pressley MD) History of colonoscopy Hx of nasal polypectomy History of heart artery stent 03/2023 > [facility] > 2 stents History of cardiac cath 03/2023 > [facility] > 2 stents Family History Father Stroke Hypertension Dyslipidemia Mother Diabetes Thrombocytopenia Hypertension Dyslipidemia Brother Diabetes Social History Smoking Status: Never smoker Second Hand Exposure: No; Do You Dip or Chew Tobacco: No; Hx Alcohol Use: No Hx Substance Use: No Preferred Language: Bahamian Communication Ability: Effective Marble Worker Required: No Beliefs That Will Affect Care: None Current Living Situation: Spouse Feels Safe at Home: Yes Assistive Devices: None Physical Exam Physical Exam: Gen.: No acute distress. Alert. HEENT: Anicteric sclera. Neck: No appreciable JVD. No hepatojugular reflux. Cardiac: No ventricular heave. Regular. Normal S1-S2. No audible murmur. 1/6 systolic murmur. No rubs or gallops. Pulmonary: Clear to auscultation bilaterally. No wheezes, rales, or rhonchi. Abdomen: Soft, nontender, nondistended, with normoactive bowel sounds. No bruits noted. Extremities: 2+ radial pulses bilaterally. 2+ posterior tibialis pulses yulia aterally. No edema. No cyanosis. Results & Data Vital Signs (Past 12 Hours) Vital Signs Temp Pulse Pulse Resp BP BP Pulse Ox 01/03/24 12:39 36.6 C 91 H 17 97/58 L 99 01/03/24 11:05 92/55 L 01/03/24 11:00 100 H 20 100 01/03/24 10:55 89/55 L 01/03/24 10:54 92 H 18 100 01/03/24 10:51 93 H 16 99 01/03/24 10:50 99/59 L 01/03/24 10:48 92 H 21 97 01/03/24 10:45 88 12 100 01/03/24 10:37 103/57 L 01/03/24 10:30 119/64 01/03/24 10:30 95 H 29 H 100 01/03/24 10:24 99/59 L 01/03/24 10:03 120 H 15 100 01/03/24 09:54 99 H 24 98 01/03/24 09:45 102 H 16 99 01/03/24 09:33 109 H 21 99 01/03/24 09:30 94/64 L 01/03/24 09:23 98 H 23 98 01/03/24 09:02 86 20 99 01/03/24 09:00 119/73 01/03/24 08:59 120 H 23 100 01/03/24 08:50 80 18 98 01/03/24 08:20 86 15 99 01/03/24 08:11 82 19 100 01/03/24 08:04 86 17 91/53 L 100 01/03/24 08:02 86 10 L 100 01/03/24 07:59 85 23 100 01/03/24 07:41 76 12 99 01/03/24 07:38 76 10 L 98 01/03/24 07:23 98 01/03/24 07:14 89 19 99 01/03/24 07:10 84 01/03/24 06:43 108 H 20 96/61 L 96 01/03/24 04:00 89 20 83/61 L 97 01/03/24 02:00 85 20 105/61 98 01/03/24 02:00 Pulse Ox O2 Del Method O2 Del Method 01/03/24 12:39 Room Air 01/03/24 11:05 01/03/24 11:00 01/03/24 10:55 01/03/24 10:54 01/03/24 10:51 01/03/24 10:50 01/03/24 10:48 01/03/24 10:45 01/03/24 10:37 01/03/24 10:30 01/03/24 10:30 01/03/24 10:24 01/03/24 10:03 01/03/24 09:54 01/03/24 09:45 01/03/24 09:33 01/03/24 09:30 01/03/24 09:23 01/03/24 09:02 01/03/24 09:00 01/03/24 08:59 01/03/24 08:50 01/03/24 08:20 01/03/24 08:11 01/03/24 08:04 Room Air 01/03/24 08:02 01/03/24 07:59 01/03/24 07:41 01/03/24 07:38 01/03/24 07:23 01/03/24 07:14 01/03/24 07:10 01/03/24 06:43 Room Air 01/03/24 04:00 Room Air 01/03/24 02:00 Room Air 01/03/24 02:00 97 Room Air Laboratory Results Laboratory Results - last 24 hr 01/02/24 01/02/24 01/03/24 19:37 Unknown 04:04 WBC 10.59 6.97 RBC 4.24 L 3.06 L Hgb 12.9 L 9.6 L D POC Hgb Hct 39.1 L 28.0 L POC Hct MCV 92.2 91.5 MCH 30.4 31.4 MCHC 33.0 34.3 RDW Std Deviation 42.3 42.4 RDW Coeff of Ramu 12.5 12.7 Plt Count 86 L 61 L Immature Gran % (Auto) 0.4 0.4 Neut % (Auto) 79.0 74.1 Lymph % (Auto) 10.5 12.9 [place] % (Auto) 7.5 10.5 Eos % (Auto) 2.1 1.7 Baso % (Auto) 0.5 0.4 Neut # (Auto) 8.38 H 5.16 Lymph # (Auto) 1.11 L 0.90 L [place] # (Auto) 0.79 H 0.73 H Eos # (Auto) 0.22 0.12 Baso # (Auto) 0.05 0.03 Immature Gran # (Auto) 0.04 0.03 Platelet Estimate Decreased L PT 11.6 INR 1.1 APTT 27 PTT Ratio 1.0 POC Sodium Sodium 133 L 135 L POC Potassium Potassium 3.7 3.6 POC Chloride Chloride 101 106 Carbon Dioxide 21 20 L POC Total CO2 Anion Gap 11 9 POC Anion Gap POC BUN BUN 27 H 26 H Creatinine 1.40 1.18 POC Creatinine Est Cr Clr Drug Dosing 49.9 59.2 Est GFR ( Amer) 55.8 68.6 Est GFR (Non-Af Amer) 48.1 59.2 BUN/Creatinine Ratio 19.3 22.0 H Glucose 116 H 102 H POC Glucose (other) Calcium 9.4 8.1 L POC Ioniz Calcium James Phosphorus 4.1 Magnesium 1.8 Total Bilirubin 1.5 H AST 26 ALT 18 Alkaline Phosphatase 66 Total Protein 7.0 Albumin 4.6 3.3 L Globulin 2.4 L Albumin/Globulin Ratio 1.9 Urine Color Red Urine Appearance Cloudy A Urine pH 7.0 Ur Specific [place] 1.025 Urine Protein 3+ H Urine Glucose (UA) 1+ H Urine Ketones Trace H Urine Blood 3+ H Urine Nitrite Positive A Urine Bilirubin 2+ H Urine Urobilinogen Negative Ur Leukocyte Esterase Negative Urine RBC >20 H Urine WBC 0-5 Ur Epithelial Cells 0-2 Urine Bacteria None Seen Blood Type Antibody Screen 01/03/24 01/03/24 01/03/24 05:58 10:25 10:27 WBC 9.84 RBC 2.82 L Hgb 8.6 L POC Hgb Hct 26.2 L POC Hct MCV 92.9 MCH 30.5 MCHC 32.8 RDW Std Deviation 43.5 RDW Coeff of Ramu 12.6 Plt Count 91 L Immature Gran % (Auto) 0.3 Neut % (Auto) 72.6 Lymph % (Auto) 18.0 [place] % (Auto) 8.3 Eos % (Auto) 0.5 Baso % (Auto) 0.3 Neut # (Auto) 7.14 H Lymph # (Auto) 1.77 [place] # (Auto) 0.82 H Eos # (Auto) 0.05 Baso # (Auto) 0.03 Immature Gran # (Auto) 0.03 Platelet Estimate PT INR APTT PTT Ratio POC Sodium Sodium 135 L POC Potassium Potassium 3.8 POC Chloride Chloride 106 Carbon Dioxide 20 L POC Total CO2 Anion Gap 9 POC Anion Gap POC BUN BUN 29 H Creatinine 1.26 POC Creatinine Est Cr Clr Drug Dosing 55.5 Est GFR ( Amer) 63.3 Est GFR (Non-Af Amer) 54.7 BUN/Creatinine Ratio 23.0 H Glucose 129 H POC Glucose (other) Calcium 8.4 L POC Ioniz Calcium James Phosphorus Magnesium Total Bilirubin 1.2 H AST 16 ALT 12 Alkaline Phosphatase 46 Total Protein 5.4 L D Albumin 3.7 Globulin 1.7 L Albumin/Globulin Ratio 2.2 H Urine Color Urine Appearance Urine pH Ur Specific [place] Urine Protein Urine Glucose (UA) Urine Ketones Urine Blood Urine Nitrite Urine Bilirubin Urine Urobilinogen Ur Leukocyte Esterase Urine RBC Urine WBC Ur Epithelial Cells Urine Bacteria Blood Type A Positive Antibody Screen NEGATIVE 01/03/24 10:28 WBC RBC Hgb POC Hgb 8.2 L Hct POC Hct 24 L MCV MCH MCHC RDW Std Deviation RDW Coeff of Ramu Plt Count Immature Gran % (Auto) Neut % (Auto) Lymph % (Auto) [place] % (Auto) Eos % (Auto) Baso % (Auto) Neut # (Auto) Lymph # (Auto) [place] # (Auto) Eos # (Auto) Baso # (Auto) Immature Gran # (Auto) Platelet Estimate PT INR APTT PTT Ratio POC Sodium 136 Sodium POC Potassium 3.8 Potassium POC Chloride 103 Chloride Carbon Dioxide POC Total CO2 18 L Anion Gap POC Anion Gap 20.0 POC BUN 23 H BUN Creatinine POC Creatinine 1.3 Est Cr Clr Drug Dosing Est GFR ( Amer) Est GFR (Non-Af Amer) BUN/Creatinine Ratio Glucose POC Glucose (other) 122 H Calcium POC Ioniz Calcium James 1.17 Phosphorus Magnesium Total Bilirubin AST ALT Alkaline Phosphatase Total Protein Albumin Globulin Albumin/Globulin Ratio Urine Color Urine Appearance Urine pH Ur Specific [place] Urine Protein Urine Glucose (UA) Urine Ketones Urine Blood Urine Nitrite Urine Bilirubin Urine Urobilinogen Ur Leukocyte Esterase Urine RBC Urine WBC Ur Epithelial Cells Urine Bacteria Blood Type Antibody Screen Diagnostic Findings Labs reviewed and notable for acute blood loss anemia, mildly abnormal but stable renal function, normal potassium. Urology consultation reviewed. History and physical report reviewed. ECG personally reviewed from 01/03/2024 at 10:28 AM: Sinus rhythm 89 bpm. Nonspecific T wave abnormality. Medications Administered Current Inpatient Medications Acetaminophen (Acetaminophen 325 Mg Tab) 650 mg PO Q4H PRN PRN Reason: Pain or Fever Stop: 02/02/24 00:51 Atorvastatin Calcium (Atorvastatin 40 Mg Tab) 80 mg PO QAM [facility] Stop: 02/02/24 08:59 Last Admin: 01/03/24 10:10 Dose: 80 mg Ceftriaxone Sodium (Rocephin) 2,000 mg in 50 mls @ 100 mls/hr IV Q24H [facility] Stop: 01/13/24 19:59 Sodium Chloride (Nss) 1,000 mls @ 125 mls/hr IV .Q8H [facility] Stop: 02/02/24 10:59 Last Infusion: 01/03/24 12:20 Dose: 0 mls/hr Metoprolol Succinate (Metoprolol Succ 25mg Ext Rel Tab) 25 mg PO QAM [facility] Stop: 02/02/24 08:59 Last Admin: 01/03/24 09:00 Dose: Not Given Nitroglycerin (Nitroglycerin Sl 0.4 Mg/Tab Tab) 0.4 mg SL Q5M PRN PRN Reason: chest pain Stop: 02/02/24 00:51 Sacubitril/Valsartan (Valsartan/Sacubitril 26/24mg Tab) 1 tab PO BID [facility] Stop: 02/02/24 08:59 Last Admin: 01/03/24 09:00 Dose: Not Given Tamsulosin HCl (Tamsulosin Hcl 0.4 Mg Cap) 0.4 mg PO HS [facility] Stop: 02/02/24 20:59 PG Care Time/CCT Total # of Minutes Spent Total Time Spent with Patient: Total time spent is greater than 50% in coordination of care (as documented) at patient's floor/unit and/or counseling patient: Coding Level of Care Code 08322 INT INP/OBS CARE 2/55MIN Diagnoses CAD (coronary artery disease) I25.10 S/P coronary artery stent placement Z95.5 Heart failure with improved ejection fraction (HFimpEF) I50.32 Vasovagal episode R55 Acute blood loss anemia D62 Gross hematuria R31.0 HTN (hypertension) I10 Dyslipidemia E78.5 Time Spent (min) 55
[2024-01-03 14:08] LABS: Hematocrit (blood only) 23.6 % (42.0-52.0)
[2024-01-03] MEDS: cefTRIAXone SODIUM 2,000 MG/50 ML BAG IV SCH (20:29)
[2024-01-03] MEDS: TAMSULOSIN HCL 0.4 MG CAP PO SCH (20:37)
[2024-01-03 21:04] LABS: Hematocrit (blood only) 19.8 % (42.0-52.0); Hemoglobin 6.8 g/dl (14.0-18.0)
[2024-01-03] MEDS ORDERED: SODIUM CHLORIDE 0.9% 250 ML IV PRN (21:10)
[2024-01-04 03:04] LABS: Hematocrit (blood only) 21.2 % (42.0-52.0); Hemoglobin 7.3 g/dl (14.0-18.0); Mean Corpuscular Hemoglobin 31.2 pg (25.0-34.0); Mean Corpuscular Hgb Conc 34.4 g/dL (32.0-36.0); Mean Corpuscular Volume 90.6 fL (80.0-100.0); Platelet Count 50 K/uL (130-400); RDW Coefficient of Variation 13.4 % (11.5-14.5); RDW Standard Deviation 44.7 fL (36.4-46.3); Red Blood Count 2.34 M/uL (4.70-6.10); White Blood Count 8.04 K/ul (4.8-10.8)
[2024-01-04 03:14] LABS: BUN Creatinine Ratio 21.3 (10-20); Calcium 7.7 mg/dl (8.6-10.3); Creatinine Clr Calc Pharmacy 51.4 ml/min; Est GFR (African American) 57.8 ml/min; Est GFR (Non-African American) 49.8 ml/min; Magnesium 1.9 mg/dl (1.7-2.4); Potassium 3.6 mmol/L (3.5-5.1)
[2024-01-04] MEDS ORDERED: SODIUM CHLORIDE 0.9% 250 ML IV PRN (03:16)
[2024-01-04] MEDS: CALCIUM GLUCONATE 1,000 MG/60 ML BAG IV STA (05:11)
--- NOTE | 2024-01-04 05:57 | Electrocardiogram Report ---
Test Reason : Blood Pressure : / mmHG Vent. Rate : 089 BPM Atrial Rate : 089 BPM P-R Int : 144 ms QRS Dur : 080 ms QT Int : 338 ms P-R-T Axes : 055 -31 070 degrees QTc Int : 411 ms Normal sinus rhythm Left axis deviation Nonspecific T wave abnormality Abnormal ECG When compared with ECG of 03-APR-2023 09:46, Criteria for Anterior infarct are no longer Present Criteria for Inferior infarct are no longer Present ST no longer elevated in Anterior leads Nonspecific T wave abnormality no longer evident in Inferior leads T wave inversion no longer evident in Anterolateral leads QT has shortened Confirmed by Enrique Alcantar ([id number]) on 01/04/2024 5:56:51 AM Referred By: Jeff Newell Confirmed By:Enrique Alcantar
[2024-01-04] MEDS: ASPIRIN 81 MG ECTAB PO SCH (08:45)
--- NOTE | 2024-01-04 10:05 | Urology Progress Note ---
Date of Service January 04, 2024 Assessment & Plan (1) Gross hematuria: Plan: 78-year-old male admitted for acute urinary retention and gross hematuria. Patient is afebrile and hemodynamically stable Labs todaycreatinine 1.36, WBC 8.04, hemoglobin 7.3 (has received 2 units of PRBCs) Three-way Boogie catheter is patent and draining pink urine with CBI on medium slow Will plan to titrate down CBI as appropriate Okay to gently hand irrigate catheter as needed for catheter obstruction or suprapubic pain Continue to hold Plavix for now Continue to trend labs and transfuse as necessary per medicine team Continue with empiric antibiotics while on CBI Okay for patient to have diet today will follow, please contact our service with any questions or acute changes Admission and Anticipated Discharge Date Admission Date: January 03, 2024 Subjective Patient seen and examined at bedside this morning, present He is awake and resting in bed Denies suprapubic pain Boogie patent and draining light pink urine with CBI on medium slow He reports his catheter was manually irrigated this morning with only a few small clots returned Denies fever or chills Review of Systems Constitutional: as per Subjective / HPI Gastrointestinal: as per Subjective / HPI Genitourinary: + as per Subjective / HPI Physical Exam Constitutional: well developed and well nourished; no acute distress Respiratory: normal respiratory effort; no respiratory distress and no labored breathing Gastrointestinal (Abdomen): Inspection/Auscultation: abdomen normal to inspection Musculoskeletal: Head/Neck/Chest: normocephalic Neurologic: moves all extremities and awake Psychiatric: Orientation: alert and oriented x 3 Genitourinary: Boogie patent and draining light pink urine with CBI on medium slow Results & Data Vital Signs (Past 12 Hours) Vital Signs Temp Pulse Pulse Resp BP BP Pulse Ox 01/04/24 08:26 36.7 C 77 20 110/64 97 01/04/24 07:17 36.7 C 87 16 146/79 H 99 01/04/24 05:45 37.1 C 87 18 124/77 98 01/04/24 05:45 37.0 C 118 H 18 118/73 98 01/04/24 04:45 37.0 C 81 18 108/66 96 01/04/24 04:15 37.0 C 86 18 120/74 96 01/04/24 04:00 36.9 C 99 H 16 97/64 L 98 01/04/24 03:36 37.0 C 86 16 104/67 97 01/04/24 01:55 36.9 C 84 18 105/60 96 01/04/24 00:39 36.9 C 83 18 89/47 L 98 01/03/24 23:47 36.9 C 88 18 96/55 L 97 01/03/24 22:47 36.9 C 78 18 99/55 L 96 01/03/24 22:17 37.0 C 82 16 96/54 L 98 01/03/24 22:02 36.9 C 87 16 98/55 L 99 01/03/24 22:00 89 01/03/24 21:45 36.9 C 92 H 18 100/55 L 96 O2 Del Method 01/04/24 08:26 Room Air 01/04/24 07:17 01/04/24 05:45 01/04/24 05:45 01/04/24 04:45 01/04/24 04:15 01/04/24 04:00 01/04/24 03:36 01/04/24 01:55 Room Air 01/04/24 00:39 01/03/24 23:47 01/03/24 22:47 01/03/24 22:17 01/03/24 22:02 01/03/24 22:00 01/03/24 21:45 PG Care Time/CCT Total # of Minutes Spent Total Time Spent with Patient: Total time spent is greater than 50% in coordination of care (as documented) at patient's floor/unit and/or counseling patient: Coding Level of Care Code 43242 SUB INP/OBS CARE 1/25MIN Diagnoses Gross hematuria R31.0
[2024-01-04 11:40] LABS: Hematocrit (blood only) 25.8 % (42.0-52.0); Hemoglobin 8.6 g/dl (14.0-18.0); Mean Corpuscular Hemoglobin 29.7 pg (25.0-34.0); Mean Corpuscular Hgb Conc 33.3 g/dL (32.0-36.0); Platelet Count 56 K/uL (130-400); RDW Coefficient of Variation 14.6 % (11.5-14.5); RDW Standard Deviation 47.8 fL (36.4-46.3); White Blood Count 7.75 K/ul (4.8-10.8)
[2024-01-04] MEDS: LACTATED RINGER'S 250 ML IV ONE (11:54)
--- NOTE | 2024-01-04 12:15 | Hospitalist Progress Note ---
Date of Service January 04, 2024 Assessment & Plan (1) Acute blood loss anemia: Plan: 2/2 gross hematuria. Hgb down to 6.8 from 12.9 since admission, received 2 units PRBCs overnight 6/2 Hgb now up to 8.0 but continues to have some gross hematuria Plavix held and ASA continued due to h/o cardiac stents Continue to monitor serial CBCs, transfuse as needed for hgb<7 Continue CBI, Urology f/u (2) Acute urinary retention: Plan: 2/2 blood clots related to recent TURP. Boogie catheter is now in place and undergoing CBI Continue ceftriaxone empirically as per Urology although UA without evidence of infection Appreciate urology consultation and assistance continue Flomax (3) Gross hematuria: Plan: as above (4) Vasovagal episode: Plan: Occurred on January 02, associated with CBI and clogged bladder, pain from bladder distension No recurrence (5) Status post recent transurethral resection of prostate: Plan: Performed on December 15 of this year (6) BPH NOS w ur obs/LUTS: Plan: Boogie catheter is now in place with continuous bladder irrigation. Appreciate urology consultation and recommendations (7) Thrombocytopenia: Plan: plts chronically low from ?ITP. FOllows with Heme in [place], no treatment Plts 50k today Ok to continue ASA for now Follow CBC (8) Heart failure with improved ejection fraction (HFimpEF): Plan: Hypovolemic-BPs low at times-bolus with 250mL LR Continue Toprol XL, Entresto Holding home Farxiga, lasix daily weights, strict I/Os. heart healthy diet (9) CAD (coronary artery disease): Plan: s/p LAD stents 03/2023 appreciate Cardiology consult-ok to HOLD Plavix and not likely to restart unless ok with Urology Continue ASA for now but ok to hold if needed (but Urology says ok to continue ASA) Continue Toprol XL, statin (10) HTN (hypertension): Plan: continue toprol, entresto, hold for lower BPs Plan DVT proph-SCDs Dispo-continued stay PCU Admission and Anticipated Discharge Date Admission Date: January 03, 2024 Subjective Pt still having pink to light red colored urine in CBI. Had some pressure in abdomen earlier relieved with flushing of clot from Boogie. Denies SOB, CP, lightheadedness. Received 2 units PRBCs overnight. Discussed care with Urology and Cardiology Tele with NSR rates 70-90s Physical Exam Constitutional: WD/WN, vitals as above Respiratory: normal respiratory effort, lungs clear to auscultation Cardiovascular: RRR, no murmur, no edema Gastrointestinal (Abdomen): normal bowel sounds, soft, nontender, no hepatosplenomegaly Psychiatric: A+Ox3, euthymic affect Genitourinary: + penis abnormality (Boogie in place drai lala red urine) Results & Data Results & Data Vital Signs (Past 12 Hours) Vital Signs Temp Pulse Pulse Pulse Resp BP BP 01/04/24 12:11 84 106/65 01/04/24 11:28 102 H 88/47 L 01/04/24 08:26 36.7 C 77 20 110/64 01/04/24 08:00 84 01/04/24 07:17 36.7 C 87 16 146/79 H 01/04/24 05:45 37.1 C 87 18 124/77 01/04/24 05:45 37.0 C 118 H 18 118/73 01/04/24 04:45 37.0 C 81 18 108/66 01/04/24 04:15 37.0 C 86 18 120/74 01/04/24 04:00 36.9 C 99 H 16 97/64 L 01/04/24 03:36 37.0 C 86 16 104/67 01/04/24 01:55 36.9 C 84 18 105/60 01/04/24 00:39 36.9 C 83 18 89/47 L Pulse Ox O2 Del Method 01/04/24 12:11 01/04/24 11:28 01/04/24 08:26 97 Room Air 01/04/24 08:00 01/04/24 07:17 99 01/04/24 05:45 98 01/04/24 05:45 98 01/04/24 04:45 96 01/04/24 04:15 96 01/04/24 04:00 98 01/04/24 03:36 97 01/04/24 01:55 96 Room Air 01/04/24 00:39 98 Laboratory Results CBC x 3, BMP, magnesium reviewed PG Care Time/CCT Total # of Minutes Spent Total Time Spent with Patient: Total time spent is greater than 50% in coordination of care (as documented) at patient's floor/unit and/or counseling patient: Coding Level of Care Code 69321 SUB INP/OBS CARE 3/50MIN Diagnoses Acute blood loss anemia D62 Acute urinary retention R33.8 Gross hematuria R31.0 Vasovagal episode R55 Status post recent transurethral resection of prostate Z98.890 BPH NOS w ur obs/LUTS N40.1 Thrombocytopenia D69.6 Heart failure with improved ejection fraction (HFimpEF) I50.32 CAD (coronary artery disease) I25.10 HTN (hypertension) I10
[2024-01-04 16:28] LABS: Hematocrit (blood only) 23.6 % (42.0-52.0); Mean Corpuscular Hgb Conc 33.9 g/dL (32.0-36.0); Mean Corpuscular Volume 88.4 fL (80.0-100.0); Platelet Count 50 K/uL (130-400); RDW Standard Deviation 48.4 fL (36.4-46.3); Red Blood Count 2.67 M/uL (4.70-6.10); White Blood Count 8.54 K/ul (4.8-10.8)
[2024-01-05 07:03] LABS: BUN Creatinine Ratio 13.6 (10-20); Calcium 7.7 mg/dl (8.6-10.3); Creatinine Clr Calc Pharmacy 55.9 ml/min; Est GFR (Non-African American) 55.2 ml/min; Magnesium 1.8 mg/dl (1.7-2.4); Potassium 3.5 mmol/L (3.5-5.1)
[2024-01-05 07:08] LABS: Hematocrit (blood only) 23.1 % (42.0-52.0); Hemoglobin 7.9 g/dl (14.0-18.0); Mean Corpuscular Hemoglobin 30.4 pg (25.0-34.0); Mean Corpuscular Hgb Conc 34.2 g/dL (32.0-36.0); Mean Corpuscular Volume 88.8 fL (80.0-100.0); Platelet Count 47 K/uL (130-400); RDW Standard Deviation 48.2 fL (36.4-46.3)
[2024-01-05 07:09] LABS: Basophils # (auto) 0.02 K/uL (0.00-0.20); Basophils % (auto) 0.3 %; Eosinophils % (auto) 4.1 %; Immature Granulocytes # (auto) 0.03 K/uL (0.01-0.20); Immature Granulocytes % (auto) 0.4 %; Lymphocytes # (auto) 0.82 K/uL (1.20-3.40); Lymphocytes % (auto) 11.2 %; Monocytes # (auto) 0.73 K/uL (0.11-0.59); Polychromasia 1+
--- NOTE | 2024-01-05 07:30 | Hospitalist Progress Note ---
Date of Service January 05, 2024 Assessment & Plan (1) Acute blood loss anemia: Plan: 2/2 gross hematuria. Hgb down to 6.8 from 12.9 within 24 hrs after admission, received 2 units PRBCs overnight / Hgb stable today at 7.9 but continues to have some gross hematuria and passing large clots, clogging 3 way catheter Plavix held and will now hold ASA as well at least temporarily (ok with Cardiology)-has a h/o cardiac stents in LAD placed 03/2023 Continue to monitor serial CBCs, transfuse as needed for hgb<7 Continue CBI, Urology f/u Keep NPO this AM in case needs clot evacuation in OR HOLD Entresto as BPs soft and ongoing bleeding Give 1 gram calcium gluconate for hypocalcemia in setting of recent PRBC transfusion and active bleeding (2) Acute urinary retention: Plan: 2/2 blood clots related to recent TURP. Boogie catheter is now in place and undergoing CBI as above with clots causing obstruction Continue ceftriaxone empirically as per Urology although UA without evidence of infection Appreciate urology consultation and assistance continue Flomax (3) Gross hematuria: Plan: as above (4) Vasovagal episode: Plan: Occurred on January 02, associated with CBI and clogged bladder, pain from bladder distension No recurrence (5) Status post recent transurethral resection of prostate: Plan: Performed on December 15 of this year (6) BPH NOS w ur obs/LUTS: Plan: Boogie catheter is now in place with continuous bladder irrigation. Appreciate urology consultation and recommendations Continues on FLomax (7) Thrombocytopenia: Plan: plts chronically low from ?ITP. FOllows with Heme in [place], no treatment Plts 47k HOLD ASA and Plavix Follow CBC (8) Heart failure with improved ejection fraction (HFimpEF): Plan: Hypovolemic-BPs low at times-bolus as needed-stable today Continue Toprol XL, but will now hold Entresto Holding home Farxiga, lasix daily weights, strict I/Os. heart healthy diet (9) CAD (coronary artery disease): Plan: s/p LAD stents 03/2023 appreciate Cardiology consult-ok to HOLD Plavix and not likely to restart unless ok with Urology Continue ASA for now but ok to hold if needed (but Urology says ok to continue ASA) Continue Toprol XL, statin (10) HTN (hypertension): Plan: continue toprol, hold entresto for lower BPs Plan DVT proph-SCDs Dispo-continued stay PCU Admission and Anticipated Discharge Date Admission Date: January 03, 2024 Subjective Pt had massive amounts of clot irrigated from Boogie by hand overnight by nursing and then Boogie continuously clogged up. I was contacted at 0655 this AM about this before my shift started but I made him NPO and contacted Urology [employer] who came to the bedside. Pt denies abd pain or pressure, not lightheaded, no other problems reported. Tele with NSR 70-80s Physical Exam Constitutional: WD/WN, vitals as above Respiratory: normal respiratory effort, lungs clear to auscultation Cardiovascular: RRR, no murmur, no edema Gastrointestinal (Abdomen): normal bowel sounds, soft, nontender, no hepatosplenomegaly Psychiatric: A+Ox3, euthymic affect Genitourinary: + penis abnormality (Boogie in place drai lala red urine) Results & Data Results & Data Vital Signs (Past 12 Hours) Vital Signs Temp Pulse Pulse Resp BP Pulse Ox O2 Del Method 01/05/24 03:01 36.6 C 86 18 107/56 L 96 Room Air 01/04/24 22:44 36.8 C 84 20 109/58 L 96 Room Air 01/04/24 22:02 77 01/04/24 20:00 36.7 C 74 16 105/59 L 97 Room Air Laboratory Results CBC, BMP, magnesium reviewed PG Care Time/CCT Total # of Minutes Spent Total Time Spent with Patient: Total time spent is greater than 50% in coordination of care (as documented) at patient's floor/unit and/or counseling patient: Coding Level of Care Code 77417 SUB INP/OBS CARE 3/50MIN Diagnoses Acute blood loss anemia D62 Acute urinary retention R33.8 Gross hematuria R31.0 Vasovagal episode R55 Status post recent transurethral resection of prostate Z98.890 BPH NOS w ur obs/LUTS N40.1 Thrombocytopenia D69.6 Heart failure with improved ejection fraction (HFimpEF) I50.32 CAD (coronary artery disease) I25.10 HTN (hypertension) I10
--- NOTE | 2024-01-05 07:53 | Urology Progress Note ---
Date of Service January 05, 2024 Assessment & Plan (1) Acute urinary retention: (2) Gross hematuria: Plan: 78-year-old male admitted for acute urinary retention and gross hematuria. Patient is afebrile with stable vitals Labs todaycreatinine 1.25, WBC 7.30, hemoglobin 7.9 (received 2 units of PRBCs this admission), Plt 47 Continue to trend labs and transfuse as necessary per medicine team Nursing reports several issues with catheter obstruction overnight/this am Three-way Boogie catheter was patent and draining light kahn urine with CBI on slow Personally irrigated catheter at beside with return of several small clots Catheter was draining appropriately upon completion, bladder scan was low, and CBI restarted on slow Maintain follow catheter Will plan to titrate down CBI as appropriate Okay to gently hand irrigate catheter as needed for catheter obstruction or suprapubic pain Plavix currently on hold Will keep NPO for now until evaluated by Dr. Hill See attending note for further details on plan of care will follow Admission and Anticipated Discharge Date Admission Date: January 03, 2024 Subjective Contacted by hospitalist and nursing this am due to issues with catheter Per nursing, patient has required manual irrigation overnight and this morning Patient is awake and resting in bed He denies suprapubic or abdominal discomfort Boogie is draining light kahn red upon my arrival, CBI on slow Nurse was irrigating from the Luer-Shay port on the catheter tubing when I arrived, a medium size clot flowed through the tubing Procedure: After clamping CBI, I manually irrigated his catheter. Catheter irrigated easily and several small to medium clots were returned with irrigation. Irrigated with about 300 mL in total. I reconnected catheter tubing and catheter was draining appropriately. Urine was light kahn red upon completion. Patient tolerated procedure well. Bladder scan was 23 mL. I restarted CBI on a slow drip. Review of Systems Constitutional: as per Subjective / HPI Gastrointestinal: as per Subjective / HPI Physical Exam Constitutional: well developed and well nourished; no acute distress Respiratory: normal respiratory effort; no respiratory distress and no labored breathing Gastrointestinal (Abdomen): Inspection/Auscultation: abdomen normal to inspection Musculoskeletal: Head/Neck/Chest: normocephalic Neurologic: moves all extremities and awake Psychiatric: Orientation: alert and oriented x 3 Genitourinary: Boogie patent and draining light kahn red, a small/medium clot flowed through tubing upon arrival. Catheter irrigated as above. Results & Data Vital Signs (Past 12 Hours) Vital Signs Temp Pulse Pulse Resp BP Pulse Ox O2 Del Method 01/05/24 03:01 36.6 C 86 18 107/56 L 96 Room Air 01/04/24 22:44 36.8 C 84 20 109/58 L 96 Room Air 01/04/24 22:02 77 01/04/24 20:00 36.7 C 74 16 105/59 L 97 Room Air PG Care Time/CCT Total # of Minutes Spent Total Time Spent with Patient: Total time spent is greater than 50% in coordination of care (as documented) at patient's floor/unit and/or counseling patient: Coding Level of Care Code 37715 SUB INP/OBS CARE 3/50MIN Diagnoses Acute urinary retention R33.8 Gross hematuria R31.0
[2024-01-05] MEDS: CALCIUM GLUCONATE 1,000 MG/60 ML BAG IV STA (08:42)
[2024-01-05 12:16] LABS: Hematocrit (blood only) 24.5 % (42.0-52.0); Hemoglobin 8.4 g/dl (14.0-18.0); Mean Corpuscular Hemoglobin 30.2 pg (25.0-34.0); Mean Corpuscular Hgb Conc 34.3 g/dL (32.0-36.0); Mean Corpuscular Volume 88.1 fL (80.0-100.0); Platelet Count 49 K/uL (130-400); Platelet Estimate Decreased (Normal); RDW Coefficient of Variation 14.6 % (11.5-14.5); RDW Standard Deviation 47.2 fL (36.4-46.3); Red Blood Count 2.78 M/uL (4.70-6.10); White Blood Count 8.54 K/ul (4.8-10.8)
--- NOTE | 2024-01-06 07:39 | Urology Progress Note ---
Date of Service January 06, 2024 Assessment & Plan (1) Acute urinary retention: (2) Gross hematuria: Plan: Follow-up of hematuria/retention Patient is afebrile and hemodynamically stable Labs today -creatinine 1.27, WBC 7.64, hemoglobin 8.0 Subjectively feeling well His catheter was irrigated by Dr. Hill yesterday morning with significant clots removed CBI has been clamped since yesterday afternoon Boogie catheter is draining appropriately Will discontinue CBI now Maintain Boogie catheter upon discharge Okay to discharge to home from perspective when medically stable We will arrange outpatient voiding trial on Thursday and likely resume Plavix at that time Plan of care reviewed with Dr. Hill Admission and Anticipated Discharge Date Admission Date: January 03, 2024 Subjective Patient seen and examined at bedside this am He is awake and resting in bed CBI was clamped yesterday afternoon by urology No issues with catheter overnight Subjectively feeling well, denies pain Boogie patent and draining transparent light maroon Review of Systems Constitutional: as per Subjective / HPI Genitourinary: + as per Subjective / HPI Physical Exam Constitutional: no acute distress Respiratory: normal respiratory effort; no respiratory distress and no labored breathing Musculoskeletal: Head/Neck/Chest: normocephalic Neurologic: moves all extremities and awake Psychiatric: Orientation: alert and oriented x 3 Genitourinary: Boogie patent and draining transparent light maroon, CBI is clamped Results & Data Vital Signs (Past 12 Hours) Vital Signs Temp Pulse Pulse Resp BP Pulse Ox O2 Del Method 01/06/24 07:25 100 H 01/06/24 06:32 36.7 C 99 H 16 102/57 L 98 Room Air 01/06/24 02:57 36.5 C 90 20 109/61 95 Room Air 01/05/24 22:45 85 01/05/24 22:19 37.3 C 88 16 115/64 97 Room Air PG Care Time/CCT Total # of Minutes Spent Total Time Spent with Patient: Total time spent is greater than 50% in coordination of care (as documented) at patient's floor/unit and/or counseling patient: Coding Level of Care Code 98729 SUB INP/OBS CARE 1/25MIN Diagnoses Acute urinary retention R33.8 Gross hematuria R31.0
[2024-01-06 07:52] LABS: BUN Creatinine Ratio 14.2 (10-20); Est GFR (African American) 62.7 ml/min; Est GFR (Non-African American) 54.1 ml/min; Magnesium 1.8 mg/dl (1.7-2.4); Potassium 3.3 mmol/L (3.5-5.1)
[2024-01-06 08:07] LABS: Basophils # (auto) 0.02 K/uL (0.00-0.20); Basophils % (auto) 0.3 %; Eosinophils # (auto) 0.25 K/uL (0.00-0.50); Eosinophils % (auto) 3.3 %; Hematocrit (blood only) 23.6 % (42.0-52.0); Immature Granulocytes # (auto) 0.05 K/uL (0.01-0.20); Immature Granulocytes % (auto) 0.7 %; Lymphocytes # (auto) 0.87 K/uL (1.20-3.40); Lymphocytes % (auto) 11.4 %; Mean Corpuscular Hemoglobin 30.3 pg (25.0-34.0); Mean Corpuscular Hgb Conc 33.9 g/dL (32.0-36.0); Mean Corpuscular Volume 89.4 fL (80.0-100.0); Monocytes # (auto) 0.74 K/uL (0.11-0.59); Monocytes % (auto) 9.7 %; Neutrophils # (auto) 5.71 K/uL (1.40-6.50); Neutrophils % (auto) 74.6 %; Platelet Count 54 K/uL (130-400); RDW Coefficient of Variation 14.3 % (11.5-14.5); RDW Standard Deviation 46.1 fL (36.4-46.3); Red Blood Count 2.64 M/uL (4.70-6.10); White Blood Count 7.64 K/ul (4.8-10.8)
[2024-01-06 08:10] LABS: RBC Morphology Unremarkable
[2024-01-06] MEDS: POTASSIUM CHLORIDE CRTAB 20 MEQ TABCR PO STA (09:03)
[2024-01-06] MEDS: MAGNESIUM SULFATE / D5W 1 GM/100 ML BAG IV ONE (09:03)
--- NOTE | 2024-01-06 13:46 | Discharge Summary ---
Discharge Summary Date of Service January 06, 2024 Principal Dx & Hospital Course #1 = Principal Diagnosis (1) Acute blood loss anemia: 2/2 gross hematuria. Hgb down to 6.8 from 12.9 within 24 hrs after admission, received 2 units PRBCs overnight 01/02 Hgb remained stable at 8.0 despite large amounts of blood clot passing-this was all old clot and no new bleeding suspected Had CBI and hematuria cleared, CBI stopped, Boogie to remain in place and dc to home as per Urology. F/u with Urology on 01/07 and can likely dc Boogie then and resume Plavix Ok to resume aspirin which was only held for 2 days-has a h/o cardiac stents in LAD placed 03/2023 Check CBC in 2 weeks as outpt or sooner prn increased hematuria Start ferrous sulfate 325mg po bid x 1 month Ok to resume Entresto after discharge which was held for low BPs from hemorrhage (2) Acute urinary retention: 2/2 blood clots related to recent TURP. Boogie catheter is now in place and weaned off CBI Ceftriaxone given empirically as per Urology although UA without evidence of i nfection Appreciate urology consultation and assistance continue Flomax but can likely stop this now s/p TURP-defer to Urology (3) Gross hematuria: as above, now resolved (4) Vasovagal episode: Occurred on January 02, associated with CBI and clogged bladder, pain from bladder distension No recurrence (5) Status post recent transurethral resection of prostate: Performed on December 15 of this year (6) BPH NOS w ur obs/LUTS: Boogie catheter is now in place with continuous bladder irrigation. Appreciate urology consultation and recommendations Continues on FLomax but can likely dc as above (7) Thrombocytopenia: plts chronically low from ?ITP. Follows with Heme in [place], no treatment Plts 50k on average Ok to continue antiplatelets Follow CBC as outpt (8) Heart failure with improved ejection fraction (HFimpEF): Hypovolemic here after hemorrhage with BPs low at times-bolused and transfused PRBCs and now euvolemic, BPs normal Continue Toprol XL, hold Entresto but can resume Entresto on 01/06 resume home Farxiga, prn lasix daily weights, heart healthy diet (9) CAD (coronary artery disease): s/p LAD stents 03/2023 appreciate Cardiology consult-ok to HOLD Plavix and not likely to restart unless ok with Urology Continue ASA, Toprol XL, statin (10) HTN (hypertension): continue toprol, held entresto for lower BPs as above but can resume Plan DVT proph-SCDs Dispo-dc to home Notes For Next Care Provider Check CBC in 2 weeks F/u with Urology in 2 days Medication Changes From Visit Added FeSO4 325mg po bid HOLD Plavix HOLD Entresto until 01/06 Admission HPI Per Admitting Provider The patient is a 78-year-old male with a past medical history including BPH with LUTS, HFimpEF, status post cardiac catheterization on 04/02/2023 with SERGO x 2 and mid LAD, hyperlipidemia, B12 deficiency, and hypertension. The patient presents to the emergency department with gross hematuria, and decreased urinary output as noted above. Patient has continued on aspirin and clopidogrel since his cardiac catheterization and stent placement on 04/02/2023, other than for 3-day interval prior to having the TURP performed on 12/16/2023 Discharge Exam Constitutional WD/WN, vitals as above Respiratory normal respiratory effort, lungs clear to auscultation Cardiovascular RRR, no murmur, no edema Gastrointestinal (Abdomen) normal bowel sounds, soft, nontender, no hepatosplenomegaly Psychiatric A+Ox3, euthymic affect Genitourinary + penis abnormality (Boogie in place draining dark yellow urine) Updated Medication List Medication Instructions Recorded Confirmed Type aspirin 81 mg tablet,delayed 81 mg PO QAM #90 tabs 04/05/23 01/02/24 Rx release cyanocobalamin (vitamin B-12) 1,000 mcg PO DAILY #90 tabs 04/05/23 01/02/24 Rx 1,000 mcg tablet furosemide 20 mg tablet (Lasix) 20 mg PO QAM PRN edema/fluid 04/05/23 01/02/24 Rx weight gain #14 tabs metoprolol succinate 25 mg 25 mg PO QAM #30 tabs 04/05/23 01/02/24 Rx tablet,extended release 24 hr sacubitril 24 mg-valsartan 26 mg 1 tab PO BID #180 tabs 04/13/23 01/02/24 Rx tablet (Entresto) dapagliflozin propanediol 10 mg 10 mg PO QAM 11/09/23 01/02/24 History tablet (Farxiga) tamsulosin 0.4 mg capsule 0.4 mg PO HS #90 caps 12/04/23 01/02/24 Rx atorvastatin 80 mg tablet (Lipitor) 80 mg PO QAM #90 tabs 12/07/23 01/02/24 Rx clopidogrel 75 mg tablet 75 mg PO QAM #90 tabs 12/07/23 01/02/24 Rx potassium chloride 10 mEq 10 meq PO DAILY PRN only when you 12/16/23 01/02/24 History tablet,extended release take furosemide water pill nitroglycerin 0.4 mg sublingual 0.4 mg sublingual Q5M PRN chest 01/03/24 Rx tablet (Nitrostat) pain #1 btl ferrous sulfate 325 mg (65 mg 325 mg PO BID #60 tabs 01/06/24 Rx iron) tablet Hospital Stay Data Consultations 01/02/24 21:55 Consult Urology Routine 01/02/24 22:09 ED Decision to Admit Stat 01/03/24 00:52 Consult Cardiology Routine Procedures Performed None Diagnostic Imagining Performed None Pending Results Patient Have Any Pending Studies at Discharge: No Discharge Instructions Given to Patient (Per Discharging Provider) You were admitted with bleeding from your recent prostate surgery. You lost a lot of blood and were given two blood transfusions with improvement. You had a Boogie catheter replaced and this should remain in place until seen by Urology on Thursday. If you have any trouble with the catheter getting clogged up between now and then, please call Urology right away. Please remain OFF OF YOUR PLAVIX for now, but you can take the aspirin. You should take an iron pill twice a day to help build up your blood count again . This can cause dark stools, constipation, and nausea. You can take a stool softener if needed for constipation. Please have your PCP check your blood count in 2 weeks to ensure it is continuing to improve. Total Time Total Time Spent Total Time Spent (In Minutes): 35 min Total Time Includes: Examination of the Patient, Discharge Planning, Medication Reconciliation and Communication With Other Providers (Urology) Coding Level of Care Code 35926 INP/OBS DISCH >30 MIN Diagnoses Acute blood loss anemia D62 Acute urinary retention R33.8 Gross hematuria R31.0 Vasovagal episode R55 Status post recent transurethral resection of prostate Z98.890 BPH NOS w ur obs/LUTS N40.1 Thrombocytopenia D69.6 Heart failure with improved ejection fraction (HFimpEF) I50.32 CAD (coronary artery disease) I25.10 HTN (hypertension) I10
== END 2024-01-06 15:33 | disposition home or self-care (01) | DRG 726 ==
LOC: EDINP 19:16 → ED 19:16 → SUATTDRO 23:04 → 2S 01-03 00:51 → SUATTDRO 01-03 10:48 → 2S 01-03 12:18